=== PATIENT | female | born 1985 | race Hispanic/Latino ===

== ENCOUNTER 2022-08-05 10:56 | Emergency (ER) | payer BC, OTHER ==
--- OUTSIDE RECORDS SUMMARY | 2022-08-05 11:01 | XMS REPORT | Continuity of Care Document ---
:1985 Author Organization [facility] t Address [address] [facility]. [address] [place] [address] Care Team Providers Name Role Phone GREENGERRY PRUITT Primary Care Physician Unavailable VICTOR M ARNDT Attending Clinician Unavailable Ebrahim TREE PLANTER, Victor M Attending Clinician Unknown, Attending Attending Clinician Unavailable Doctor Unassigned, [place] Attending Clinician Unavailable Debby Jain RN Attending Clinician Unavailable Only, Ang [facility] Test Attending Clinician Unavailable Amelia Tapia Attending Clinician AMELIA SHOOK Attending Clinician Unavailable SHANNA GOMEZ Attending Clinician Unavailable Shanna Garza Attending Clinician MARTHA KELELY Attending Clinician Unavailable Allie REICHPMartha Attending Clinician Provider, [facility] Attending Clinician Unavailable Liz Molina RN Attending Clinician Unavailable LONG NORRIS Attending Clinician Unavailable Jr DUBOSE, Long Attending Clinician Bill Gonzalez DO Attending Clinician 2, [facility] Attending Clinician Unavailable Venessa DUBOSE, Katiana Attending Clinician KATIANA CLIFFORD Attending Clinician Unavailable Lab, [facility] Fam Pob I Attending Clinician Unavailable Missy Palmer Attending Clinician MISSY QIU Attending Clinician Unavailable Teetee Koch RN Attending Clinician Unavailable DANIEL HERNANDEZ Attending Clinician Unavailable Pob[facility], [facility] Attending Clinician Unavailable GERRY GREEN Attending Clinician Unavailable ANNI PHAN Attending Clinician Unavailable ROMÁN MONDRAGON Attending Clinician Unavailable ROMÁN MONDRAGON Attending Clinician Unavailable SHANNA GOMEZ Admitting Clinician Unavailable ROMÁN MONDRAGON Admitting Clinician Unavailable Payers Payer Name Policy Type Policy Number Effective Date Expiration Date S ource Problems Condition Condition Condition Status Onset Resolution Last Treating Co mments Source Name Details Category Date Date Treatment Clinician Date Need for Need for Disease Active Unive rs vaccinatio vaccinatio 1-19 it y of n with n with 00:00: [place] 13-polyval 13-polyval 00 Me dical ent ent Branch pneumococc pneumococc al al conjugate conjugate vaccine vaccine Need for Need for Disease Active Unive rs vaccinatio vaccinatio 1-19 it y of n with n with 00:00: [place] 13-polyval 13-polyval 00 Me dical ent ent Branch pneumococc pneumococc al al conjugate conjugate vaccine vaccine ADHD ADHD Disease Active Univers (attention (attention 1-15 it y of deficit deficit 00:00: [place] hyperactiv hyperactiv 00 Me dical ity ity Branch disorder), disorder), combined combined type type Anxiety, Anxiety, Disease Active Unive rs generalize generalize 1-15 it y of d d 00:00: 00 Medical Branch Stress at Stress at Disease Active Uni vers home home 1-15 ity of 00:00: 00 Medical Branch Current Current Disease Active Univers mild mild 1-15 ity of episode of [place] major 00 Medical depressive depressive Br anch disorder, disorder, unspecifie unspecifie d whether d whether recurrent recurrent Adjustment Adjustment Disease Active U nivers insomnia insomnia 1-15 ity of 00:00: [place] 00 Medical Branch Bronchitis Bronchitis Disease Active U nivers 4-28 ity of 00:00: 00 Medical Branch Nose Nose Disease Active Univers congestion congestion 4-28 it y of 00:00: 00 Medical Branch Exposure Exposure Disease Active Unive rs to to 4-28 ity of SARS-assoc SARS-assoc 00:00: [place] i[place] iated 00 Medical coronaviru coronaviru Br anch s s Acute Acute Disease Active 2020- Univers bacterial bacterial 3-17 ity of pharyngiti pharyngiti [place] Sore Sore Disease Active 2020- Univers throat throat 3-17 ity of 00:00: [place] 00 Medical Branch Nicotine Nicotine Disease Active 2019- Unive rs dependence dependence 3-17 it y of , , 00:00: [place] cigarettes cigarettes 00 Me dical , , Branch uncomplica uncomplica hadley hadley Cough Cough Disease Active 2020- Univers 3-17 ity of 00:00: [place] 00 Medical Branch Status Status Disease Active 2019- Univers post tubal post tubal 4-12 it y of ligation ligation 00:00: [place] 00 Medical Branch Shoulder Shoulder Disease Active Unive rs dystocia dystocia 4-12 ity of during during 00:00: [place] labor and labor and [address] [place] [address] delivery delivery Branch History of History of Disease Active 2019 U nivers seizure seizure 4-12 ity of 00:00: [place] 00 Medical Branch H/O H/O Disease Active 2019- Univers maternal maternal 1-24 ity of cardiomyop cardiomyop 00:00: [place] sabina sidhu, athmurali, 00 Medical currently currently Bran ch , , third third trimester trimester History of History of Disease Active 2017-03 Overview : Univers echocardio echocardio 1- Formattin ity of gram gram 00:00: g of this [place] 00 note Medical might be Branch different from the original. See results from 11/2017 in chart review Cervical Cervical Disease Active 2017-03 Overview: Un patrick Papanicola Papanicola 1- Formattin ity of ou smear ou smear 00:00: g of this [place] as negative negative 00 note Medica l within within might be Branch last 12 last 12 different months months from the original. 11/2017 neg pap and neg hpv see scanned records Disease Active 2017-03 Overview : Univers cardiomyop cardiomyop 0-29 Formattin ity of athy athy 00:00: g of this [place] 00 note Medical might be Branch different from the original. Reported with 2008 11/2017 normal echo, see scanned records Allergies, Adverse Reactions, Alerts Allergy Allergy Status Severity Reaction(s) Onset Inactive Treating Comm ents Source Name Type Date Date Clinician NO KNOWN Drug Active Univers ALLERGIE Class ity of [facility] Social History Social Habit Start Date Stop Date Quantity Comments Source Exposure to 2022-05-03 2022-05-13 Not sure [facility] SARS-CoV-2 00:00:00 10:37:00 [facility] (event) Branch Alcohol intake 2021-07-31 2021-07-31 0 /d [facility] 00:00:00 00:00:00 [facility] Tobacco use and 2019-07-26 2019-07-26 Smokeless tobacco Un iversity of exposure 00:00:00 00:00:00 non-user [facility] Tobacco Comment 2018-01-25 2018-01-25 [facility]:00 she found out [place] Medic al about Branch History of 2017-12-01 Cigarette Smoker Universi ty of tobacco use 00:00:00 [facility] Sex [birth year] Universit y of 00:00:00 00:00:00 [facility] Smoking Status Start Date Stop Date Source Tobacco smoking [facility] Branch Occasional tobacco smoker 2019-07-26 00:00:00 Un iversity of [facility] Medications Ordered Filled Start Stop Current Ordering Indication Dosage Frequency Signature Comments Components Source Medication Medication Date Date Medication? Clinician (SIG) Name Name amoxicillin 2022- Yes [id number] 875mg Take 1 Univers 875 mg 2-14 -25 tablet by ity of tablet 00:00: 05:59 mouth in [place] 00 :00 the Medical morning Branch and 1 tablet in the evening. Do all this for 10 days. amoxicillin 2022- Yes [id number] 875mg Take 1 Univers 875 mg 2-14 02-25 tablet by ity of tablet 00:00: 05:59 mouth in [place] 00 :00 the Medical morning Branch and 1 tablet in the evening. Do all this for 10 days. ondansetron 2021- No 8mg 8 mg, Slow Univers (ZOFRAN -07 02-04 IV Push, ity of (PF)) 18:45: 17:55 ONCE, 1 [place] injection 8 00 :00 dose, On Medi gloria mg 07/31/21 Branch at 1345, MARIA EUGENIA NaCl 0.9% 2021-0 2021- No 1000mL at 999 Uni vers (NS) bolus 5-04 05-04 mL/hr, ity of infusion 18:45: 20:16 1,000 mL, Caden as 1,000 mL 00 :00 IV Medical Infusion, Branch ONCE, 1 dose, On 07/31/21 at 1345, MARIA EUGENIA dicyclomine 2021-0 Yes [id number] 20mg Take 1 U nivers 20 mg 5-04 tablet by ity of tablet 00:00: mouth 4 [place] 00 (four) Medical times Branch daily as needed for Abdominal pain. ondansetron 2021-0 Yes [id number] 4mg Take 1 U nivers 4 mg 5-04 tablet by ity of disintegrat 00:00: mouth [place] ing tablet 00 every 8 Medica l (eight) Branch hours as needed for Nausea and Vomiting (N/V). dicyclomine 2021-0 Yes [id number] 20mg Take 1 U nivers 20 mg 5-04 tablet by ity of tablet 00:00: mouth 4 [place] 00 (four) Medical times Branch daily as needed for Abdominal pain. ondansetron 2021-0 Yes [id number] 4mg Take 1 U nivers 4 mg 5-04 tablet by ity of disintegrat 00:00: mouth [place] ing tablet 00 every 8 Medica l (eight) Branch hours as needed for Nausea and Vomiting (N/V). dicyclomine 2021-0 Yes [id number] 20mg Take 1 U nivers 20 mg 5-04 tablet by ity of tablet 00:00: mouth 4 [place] 00 (four) Medical times Branch daily as needed for Abdominal pain. ondansetron 2-0 Yes [id number] 4mg Take 1 U nivers 4 mg 5-04 tablet by ity of disintegrat 00:00: mouth [place] ing tablet 00 every 8 Medica l (eight) Branch hours as needed for Nausea and Vomiting (N/V). dicyclomine 2-0 Yes [id number] 20mg Take 1 U nivers 20 mg 5-04 tablet by ity of tablet 00:00: mouth 4 [place] 00 (four) Medical times Branch daily as needed for Abdominal pain. ondansetron 2-0 Yes [id number] 4mg Take 1 U nivers 4 mg 5-04 tablet by ity of disintegrat 00:00: mouth [place] ing tablet 00 every 8 Medica l (eight) Branch hours as needed for Nausea and Vomiting (N/V). dicyclomine 2-0 Yes [id number] 20mg Take 1 U nivers 20 mg 5-04 tablet by ity of tablet 00:00: mouth 4 [place] 00 (four) Medical times Branch daily as needed for Abdominal pain. ondansetron 2021-0 Yes [id number] 4mg Take 1 U nivers 4 mg 5-04 tablet by ity of disintegrat 00:00: mouth [place] ing tablet 00 every 8 Medica l (eight) Branch hours as needed for Nausea and Vomiting (N/V). dicyclomine 2021-0 Yes [id number] 20mg Take 1 U nivers 20 mg 5-04 tablet by ity of tablet 00:00: mouth 4 [place] 00 (four) Medical times Branch daily as needed for Abdominal pain. ondansetron 2021-0 Yes [id number] 4mg Take 1 U nivers 4 mg 5-04 tablet by ity of disintegrat 00:00: mouth [place] ing tablet 00 every 8 Medica l (eight) Branch hours as needed for Nausea and Vomiting (N/V). dicyclomine 2021-0 Yes [id number] 20mg Take 1 U nivers 20 mg 5-04 tablet by ity of tablet 00:00: mouth 4 [place] 00 (four) Medical times Branch daily as needed for Abdominal pain. ondansetron 2021-0 Yes [id number] 4mg Take 1 U nivers 4 mg 5-04 tablet by ity of disintegrat 00:00: mouth [place] ing tablet 00 every 8 Medica l (eight) Branch hours as needed for Nausea and Vomiting (N/V). ondansetron 2020- Yes [id number] 4mg Take 1 Univers 4 mg 2-13 tablet by ity of disintegrat 00:00: mouth [place] ing tablet 00 every 8 Medica l (eight) Branch hours as needed for Nausea and Vomiting (N/V). ondansetron 2020- Yes [id number] 4mg Take 1 Univers 4 mg 2-13 tablet by ity of disintegrat 00:00: mouth [place] ing tablet 00 every 8 Medica l (eight) Branch hours as needed for Nausea and Vomiting (N/V). ondansetron 2020-03 Yes [id number] 4mg Take 1 Univers 4 mg 2-13 tablet by ity of disintegrat 00:00: mouth [place] ing tablet 00 every 8 Medica l (eight) Branch hours as needed for Nausea and Vomiting (N/V). ondansetron 2020-03 Yes [id number] 4mg Take 1 Univers 4 mg 2-13 tablet by ity of disintegrat 00:00: mouth [place] ing tablet 00 every 8 Medica l (eight) Branch hours as needed for Nausea and Vomiting (N/V). ondansetron 2020-03 Yes [id number] 4mg Take 1 Univers 4 mg 2-13 tablet by ity of disintegrat 00:00: mouth [place] ing tablet 00 every 8 Medica l (eight) Branch hours as needed for Nausea and Vomiting (N/V). ondansetron 2020-03 Yes [id number] 4mg Take 1 Univers 4 mg 2-13 tablet by ity of disintegrat 00:00: mouth [place] ing tablet 00 every 8 Medica l (eight) Branch hours as needed for Nausea and Vomiting (N/V). ondansetron 2020-03 Yes [id number] 4mg Take 1 Univers 4 mg 2-13 tablet by ity of disintegrat 00:00: mouth [place] ing tablet 00 every 8 Medica l (eight) Branch hours as needed for Nausea and Vomiting (N/V). ondansetron 2020-03 Yes [id number] 4mg Take 1 Univers 4 mg 2-13 tablet by ity of disintegrat 00:00: mouth [place] ing tablet 00 every 8 Medica l (eight) Branch hours as needed for Nausea and Vomiting (N/V). ondansetron 2020-03 Yes [id number] 4mg Take 1 Univers 4 mg 2-13 tablet by ity of disintegrat 00:00: mouth [place] ing tablet 00 every 8 Medica l (eight) Branch hours as needed for Nausea and Vomiting (N/V). ondansetron 2020-03 Yes [id number] 4mg Take 1 Univers 4 mg 2-13 tablet by ity of disintegrat 00:00: mouth [place] ing tablet 00 every 8 Medica l (eight) Branch hours as needed for Nausea and Vomiting (N/V). ondansetron 2020-03 Yes [id number] 4mg Take 1 Univers 4 mg 2-13 tablet by ity of disintegrat 00:00: mouth [place] ing tablet 00 every 8 Medica l (eight) Branch hours as needed for Nausea and Vomiting (N/V). ondansetron 2020-03 Yes [id number] 4mg Take 1 Univers 4 mg 2-13 tablet by ity of disintegrat 00:00: mouth [place] ing tablet 00 every 8 Medica l (eight) Branch hours as needed for Nausea and Vomiting (N/V). ondansetron 2020-03 Yes [id number] 4mg Take 1 Univers 4 mg 2-13 tablet by ity of disintegrat 00:00: mouth [place] ing tablet 00 every 8 Medica l (eight) Branch hours as needed for Nausea and Vomiting (N/V). ondansetron 2020-03 Yes [id number] 4mg Take 1 Univers 4 mg 2-13 tablet by ity of disintegrat 00:00: mouth [place] ing tablet 00 every 8 Medica l (eight) Branch hours as needed for Nausea and Vomiting (N/V). ondansetron 2020-03- No [id number] 4mg Take 1 Univers 4 mg 0-11 12-13 tablet by ity of disintegrat 00:00: 00:00 [place] tablet 00 :00 every 8 Medica l (eight) Branch hours as needed for Nausea and Vomiting (N/V). amphetamine Yes [id number] 5mg Take 1 Univers -dextroamph 1-15 capsule by it y of etamine 00:00: mouth [place] (ADDERALL 00 every Medical XR) 5 mg 24 morning. Bran ch hr capsule FLUoxetine Yes [id number] 10mg Take 1 U nivers 10 mg 1-15 capsule by ity of capsule 00:00: mouth [place] 00 daily. Medical Branch traZODone Yes [id number] 50mg Take 1 U nivers 50 mg 1-15 tablet by ity of tablet 00:00: mouth at [place] 00 bedtime. Medical Branch amphetamine Yes [id number] 5mg Take 1 Univers -dextroamph 1-15 capsule by it y of etamine 00:00: mouth [place] (ADDERALL 00 every Medical XR) 5 mg 24 morning. Bran ch hr capsule FLUoxetine Yes [id number] 10mg Take 1 U nivers 10 mg 1-15 capsule by ity of capsule 00:00: mouth [place] 00 daily. Medical Branch traZODone Yes [id number] 50mg Take 1 U nivers 50 mg 1-15 tablet by ity of tablet 00:00: mouth at [place] 00 bedtime. Medical Branch amphetamine 0 Yes [id number] 5mg Take 1 Univers -dextroamph 1-15 capsule by it y of etamine 00:00: mouth [place] (ADDERALL 00 every Medical XR) 5 mg 24 morning. Bran ch hr capsule FLUoxetine Yes [id number] 10mg Take 1 U nivers 10 mg 1-15 capsule by ity of capsule 00:00: mouth [place] 00 daily. Medical Branch traZODone Yes [id number] 50mg Take 1 U nivers 50 mg 1-15 tablet by ity of tablet 00:00: mouth at [place] 00 bedtime. Medical Branch amphetamine Yes [id number] 5mg Take 1 Univers -dextroamph 1-15 capsule by it y of etamine 00:00: mouth [place] (ADDERALL 00 every Medical XR) 5 mg 24 morning. Bran ch hr capsule FLUoxetine Yes [id number] 10mg Take 1 U nivers 10 mg 1-15 capsule by ity of capsule 00:00: mouth [place] 00 daily. Medical Branch traZODone Yes [id number] 50mg Take 1 U nivers 50 mg 1-15 tablet by ity of tablet 00:00: mouth at [place] 00 bedtime. Medical Branch amphetamine Yes [id number] 5mg Take 1 Univers -dextroamph 1-15 capsule by it y of etamine 00:00: mouth [place] (ADDERALL 00 every Medical XR) 5 mg 24 morning. Bran ch hr capsule FLUoxetine Yes [id number] 10mg Take 1 U nivers 10 mg 1-15 capsule by ity of capsule 00:00: mouth [place] 00 daily. Medical Branch traZODone Yes [id number] 50mg Take 1 U nivers 50 mg 1-15 tablet by ity of tablet 00:00: mouth at [place] 00 bedtime. Medical Branch amphetamine Yes [id number] 5mg Take 1 Univers -dextroamph 1-15 capsule by it y of etamine 00:00: mouth [place] (ADDERALL 00 every Medical XR) 5 mg 24 morning. Bran ch hr capsule FLUoxetine Yes [id number] 10mg Take 1 U nivers 10 mg 1-15 capsule by ity of capsule 00:00: mouth [place] 00 daily. Medical Branch traZODone Yes [id number] 50mg Take 1 U nivers 50 mg 1-15 tablet by ity of tablet 00:00: mouth at [place] 00 bedtime. Medical Branch amphetamine Yes [id number] 5mg Take 1 Univers -dextroamph 1-15 capsule by it y of etamine 00:00: mouth [place] (ADDERALL 00 every Medical XR) 5 mg 24 morning. Bran ch hr capsule FLUoxetine Yes [id number] 10mg Take 1 U nivers 10 mg 1-15 capsule by ity of capsule 00:00: mouth [place] 00 daily. Medical Branch traZODone Yes [id number] 50mg Take 1 U nivers 50 mg 1-15 tablet by ity of tablet 00:00: mouth at [place] 00 bedtime. Medical Branch amphetamine Yes [id number] 5mg Take 1 Univers -dextroamph 1-15 capsule by it y of etamine 00:00: mouth [place] (ADDERALL 00 every Medical XR) 5 mg 24 morning. Bran ch hr capsule FLUoxetine Yes [id number] 10mg Take 1 U nivers 10 mg 1-15 capsule by ity of capsule 00:00: mouth [place] 00 daily. Medical Branch traZODone Yes [id number] 50mg Take 1 U nivers 50 mg 1-15 tablet by ity of tablet 00:00: mouth at [place] 00 bedtime. Medical Branch amphetamine Yes [id number] 5mg Take 1 Univers -dextroamph 1-15 capsule by it y of etamine 00:00: mouth [place] (ADDERALL 00 every Medical XR) 5 mg 24 morning. Bran ch hr capsule FLUoxetine Yes [id number] 10mg Take 1 U nivers 10 mg 1-15 capsule by ity of capsule 00:00: mouth [place] 00 daily. Medical Branch traZODone Yes [id number] 50mg Take 1 U nivers 50 mg 1-15 tablet by ity of tablet 00:00: mouth at [place] 00 bedtime. Medical Branch amphetamine 2020-0 Yes [id number] 5mg Take 1 Univers -dextroamph 1-15 capsule by it y of etamine 00:00: mouth [place] (ADDERALL 00 every Medical XR) 5 mg 24 morning. Bran ch hr capsule FLUoxetine 2020-0 Yes [id number] 10mg Take 1 U nivers 10 mg 1-15 capsule by ity of capsule 00:00: mouth [place] 00 daily. Medical Branch traZODone 2020-0 Yes [id number] 50mg Take 1 U nivers 50 mg 1-15 tablet by ity of tablet 00:00: mouth at [place] 00 bedtime. Medical Branch amphetamine 2020-0 Yes [id number] 5mg Take 1 Univers -dextroamph 1-15 capsule by it y of etamine 00:00: mouth [place] (ADDERALL 00 every Medical XR) 5 mg 24 morning. Bran ch hr capsule FLUoxetine 2020-0 Yes [id number] 10mg Take 1 U nivers 10 mg 1-15 capsule by ity of capsule 00:00: mouth [place] 00 daily. Medical Branch traZODone 0 Yes [id number] 50mg Take 1 U nivers 50 mg 1-15 tablet by ity of tablet 00:00: mouth at [place] 00 bedtime. Medical Branch amphetamine 2020-0 Yes [id number] 5mg Take 1 Univers -dextroamph 1-15 capsule by it y of etamine 00:00: mouth [place] (ADDERALL 00 every Medical XR) 5 mg 24 morning. Bran ch hr capsule FLUoxetine 2020-0 Yes [id number] 10mg Take 1 U nivers 10 mg 1-15 capsule by ity of capsule 00:00: mouth [place] 00 daily. Medical Branch traZODone 2020-0 Yes [id number] 50mg Take 1 U nivers 50 mg 1-15 tablet by ity of tablet 00:00: mouth at [place] 00 bedtime. Medical Branch amphetamine 2020-0 Yes [id number] 5mg Take 1 Univers -dextroamph 1-15 capsule by it y of etamine 00:00: mouth [place] (ADDERALL 00 every Medical XR) 5 mg 24 morning. Bran ch hr capsule FLUoxetine 2020-0 Yes [id number] 10mg Take 1 U nivers 10 mg 1-15 capsule by ity of capsule 00:00: mouth [place] 00 daily. Medical Branch traZODone Yes [id number] 50mg Take 1 U nivers 50 mg 1-15 tablet by ity of tablet 00:00: mouth at [place] 00 bedtime. Medical Branch amphetamine Yes [id number] 5mg Take 1 Univers -dextroamph 1-15 capsule by it y of etamine 00:00: mouth [place] (ADDERALL 00 every Medical XR) 5 mg 24 morning. Bran ch hr capsule FLUoxetine Yes [id number] 10mg Take 1 U nivers 10 mg 1-15 capsule by ity of capsule 00:00: mouth [place] 00 daily. Medical Branch traZODone Yes [id number] 50mg Take 1 U nivers 50 mg 1-15 tablet by ity of tablet 00:00: mouth at [place] 00 bedtime. Medical Branch Immunizations Ordered Filled Immunization Date Status Comments [facility] e Immunization Name Name Pneumococcal 13 2020-04-13 Completed Universit y of Conjugate, PCV13 00:00:00 [place] Me dical (Prevnar 13) Branch Pneumococcal 13 2020-04-13 Completed Universit y of Conjugate, PCV13 00:00:00 [place] Me dical (Prevnar 13) Branch Pneumococcal 13 2020-04-13 Completed Universit y of Conjugate, PCV13 00:00:00 [place] Me dical (Prevnar 13) Branch Pneumococcal 13 2020-04-13 Completed Universit y of Conjugate, PCV13 00:00:00 [place] Me dical (Prevnar 13) Branch Pneumococcal 13 2020-04-13 Completed Universit y of Conjugate, PCV13 00:00:00 [place] Me dical (Prevnar 13) Branch Pneumococcal 13 2020-04-13 Completed Universit y of Conjugate, PCV13 00:00:00 [place] Me dical (Prevnar 13) Branch Pneumococcal 13 2020-04-13 Completed Universit y of Conjugate, PCV13 00:00:00 [place] Me dical (Prevnar 13) Branch Pneumococcal 13 2020-04-13 Completed Universit y of Conjugate, PCV13 00:00:00 [place] Me dical (Prevnar 13) Branch Pneumococcal 13 2020-04-13 Completed Universit y of Conjugate, PCV13 00:00:00 [facility] dical (Prevnar 13) Branch Pneumococcal 13 2020-04-13 Completed Universit y of Conjugate, PCV13 00:00:00 [facility] dical (Prevnar 13) Branch Pneumococcal 13 2020-04-13 Completed Universit y of Conjugate, PCV13 00:00:00 [place] Me dical (Prevnar 13) Branch Pneumococcal 13 2020-04-13 Completed Universit y of Conjugate, PCV13 00:00:00 [place] [facility] dical (Prevnar 13) Branch Pneumococcal 13 2020-04-13 Completed Universit y of Conjugate, PCV13 00:00:00 [facility] dical (Prevnar 13) Branch Pneumococcal 13 2020-04-13 Completed Universit y of Conjugate, PCV13 00:00:00 [facility] dical (Prevnar 13) Branch TDAP 2018-04-22 Completed University of 00:00:00 [facility] TDAP 2018-04-22 Completed University of 00:00:00 [facility] TDAP 2018-04-22 Completed University of 00:00:00 [facility] TDAP 2018-04-22 Completed University of 00:00:00 [facility] TDAP 2018-04-22 Completed University of 00:00:00 [facility] TDAP 2018-04-22 Completed University of 00:00:00 [facility] TDAP 2018-04-22 Completed University of 00:00:00 [facility] TDAP 2018-04-22 Completed University of 00:00:00 [facility] TDAP 2018-04-22 Completed University of 00:00:00 [facility] TDAP 2018-04-22 Completed University of 00:00:00 [facility] TDAP 2018-04-22 Completed University of 00:00:00 [facility] TDAP 2018-04-22 Completed University of 00:00:00 [facility] TDAP 2018-04-22 Completed University of 00:00:00 [facility] TDAP 2018-04-22 Completed University of 00:00:00 [facility] Influenza Virus 2018-01-19 Completed Universit y of Vaccine - Whole 00:00:00 [facility] Influenza Virus 2018-01-19 Completed Universit y of Vaccine - Whole 00:00:00 [facility] Influenza Virus 2018-01-19 Completed Universit y of Vaccine - Whole 00:00:00 [facility] Influenza Virus 2018-01-19 Completed Universit y of Vaccine - Whole 00:00:00 [facility] Influenza Virus 2018-01-19 Completed Universit y of Vaccine - Whole 00:00:00 [facility] Influenza Virus 2018-01-19 Completed Universit y of Vaccine - Whole 00:00:00 [facility] Influenza Virus 2018-01-19 Completed Universit y of Vaccine - Whole 00:00:00 [facility] Influenza Virus 2018-01-19 Completed Universit y of Vaccine - Whole 00:00:00 [facility] Influenza Virus 2018-01-19 Completed Universit y of Vaccine - Whole 00:00:00 [facility] Influenza Virus 2018-01-19 Completed Universit y of Vaccine - Whole 00:00:00 [facility] Influenza Virus 2018-01-19 Completed Universit y of Vaccine - Whole 00:00:00 [facility] Influenza Virus 2018-01-19 Completed Universit y of Vaccine - Whole 00:00:00 [facility] Influenza Virus 2018-01-19 Completed Universit y of Vaccine - Whole 00:00:00 [facility] Influenza Virus 2018-01-19 Completed Universit y of Vaccine - Whole 00:00:00 [facility] Vital Signs Vital Name Observation Time Observation Value Comments Source Systolic blood 2022-05-13 16:50:00 108 mm[Hg] Univer sity of pressure [facility] Diastolic blood 2022-05-13 16:50:00 76 mm[Hg] Unive rsity of pressure [facility] Heart rate 2022-05-13 16:50:00 84 /min [facility] Body temperature 2022-05-13 16:50:00 37.28 Luz Marina [facility] Respiratory rate 2022-05-13 16:50:00 18 /min [facility] Body height 2022-05-13 16:50:00 162.6 cm [facility] Body weight 2022-05-13 16:50:00 63.248 kg [facility] BMI 2022-05-13 16:50:00 23.93 kg/m2 [facility] Oxygen saturation in 2022-05-13 16:50:00 97 /min [facility] Arterial blood by [facility] Pulse oximetry Branch Systolic blood 2021-07-31 20:00:00 122 mm[Hg] Univer sity of pressure [facility] Diastolic blood 2021-07-31 20:00:00 76 mm[Hg] Unive rsity of pressure [facility] Heart rate 2021-07-31 20:00:00 61 /min [facility] Respiratory rate 2021-07-31 20:00:00 21 /min Univ ersity [facility] Oxygen saturation in 2021-07-31 20:00:00 98 /min University of Arterial blood by [facility] Pulse oximetry Branch Body temperature 2021-07-31 17:33:00 36.22 Luz Marina [facility] Body weight 2021-07-31 17:33:00 62.596 kg [facility] BMI 2021-07-31 17:33:00 20.38 kg/m2 [facility] Systolic blood 2021-03-11 17:50:00 130 mm[Hg] Univer sity of pressure [facility] Diastolic blood 2021-03-11 17:50:00 82 mm[Hg] Unive rsity of pressure [facility] Heart rate 2021-03-11 17:50:00 81 /min [facility] Body temperature 2021-03-11 17:50:00 36.56 Luz Marina [facility] Respiratory rate 2021-03-11 17:50:00 17 /min [facility] Body height 2021-03-11 17:50:00 175.3 cm [facility] Body weight 2021-03-11 17:50:00 62.143 kg [facility] BMI 2021-03-11 17:50:00 20.23 kg/m2 [facility] Oxygen saturation in 2021-03-11 17:50:00 97 /min [facility] Arterial blood by [facility] Pulse oximetry Branch Procedures Procedure Date / Time Performing Clinician Source Performed POCT MOLECULAR FLU 2022-05-13 16:58:00 Unknown, Attending [facility] FOR 2022-05-13 16:41:02 Doctor Unassigned, Unive [facility] DIAGNOSIS AND TREATMENT [facility] XR CHEST 1 VW 2021-07-31 18:24:19 Shanna Gomez [facility] LIPASE 2021-07-31 17:51:00 Shanna Gomez [facility] TROPONIN I 2021-07-31 17:51:00 Shanna Gomez [facility] COMP. METABOLIC PANEL 2021-07-31 17:51:00 Shanna Gomez [facility] ([id number]) [facility] CBC WITH DIFF 2021-07-31 17:51:00 Shanna Gomez [facility] URINALYSIS 2021-07-31 17:51:00 Shanna Gomez [facility] N-TERMINAL PRO-BNP 2021-07-31 17:51:00 Shanna Gomez [facility] POCT TEST 2021-07-31 17:45:00 Shanna Gomez [facility] NOTICE OF PRIVACY 2021-07-31 17:21:40 Doctor Margoth, [facility] PRACTICES [place] [facility] CONSENT/REFUSAL FOR 2021-07-31 17:21:28 Doctor Margoth, [facility] DIAGNOSIS AND TREATMENT [facility] [place] ASSIGNMENT OF BENEFITS 2021-04-04 22:07:57 Doctor Margoth, [facility] POCT MOLECULAR FLU 2021-03-11 18:02:[address] [facility] PATIENT FINANCIAL Doctor Margoth, [facility] RESPONSIBILITY - ALL [facility] FORMS Encounters Start End Encounter Admission Attending Care Care Encounter Source Date/Time Date/Time Type Type Clinicians Facility Department ID 2022-05-13 2022-05-13 Outpatient R YRIS [facility] [id number] [facility] 10:20:00 11:09:10 VICTOR M [facility] 2022-05-13 2022-05-13 Urgent Victor M Arndt [facility] 1.2.840.114 [id number] [facility] 10:20:00 11:09:10 Care Unknown, Attending HEALTH 350.1.13.10 [facility] 4.2.7.2.686 Caden [place] NIRAJ?BLEA [phone] [address] OFFICE [facility] 2022-05-13 2022-05-13 Orders Doctor CINDY 1.2.840.114 [id number] Univers 00:00:00 00:00:00 Only Unassigned, SHAREE 350.1.13.10 ity of [place] [facility] 4.2.7.2.686 Caden as [id number] [facility] [address] 2022-05-13 2022-05-13 Letter Yris [facility] 1.2.840.114 [id number] Univers 00:00:00 00:00:00 (Out) Rania HEALTH 350.1.13.10 it y of [place] 4.2.7.2.686 Caden as NIRAJ?BLEA [id number] [address] 2021-10-16 2021-10-16 Telephone Debby Jain 1.2.840.114 [id number] Univers 00:00:00 00:00:00 SHAREE 350.1.13.10 it y of HOSPITAL 4.2.7.2.686 [place] [phone] [address] 2021-10-15 2021-10-15 Laboratory Only, Ang Db Test [facility] 1.2.8 40.114 [id number] Univers 19:45:00 20:00:00 Only Foreign Shooky HEALTH 350.1.13.10 ity of [place] 4.2.7.2.686 [place]aden [place] NIRAJ?BLEA [phone] [address] 2021-10-15 2021-10-15 Outpatient R BOONE [facility] [id number] Univers 19:45:00 19:38:02 AMELIA ity o f [facility] 2021-10-15 2021-10-15 Letter Only, Cristian [facility] 1.2.692.993 [id number] Univers 00:00:00 00:00:00 (Out) Db Test HEALTH 350.1.13.10 it y of [place] 4.2.7.2.686 Caden as NIRAJ?BLEA [id number] [address] 2021-07-31 2021-07-31 Emergency X JASON [facility] ERT [id number] Univers 12:38:00 15:23:00 SHANNA ity [facility] 2021-07-31 2021-07-31 Emergency Gomez, [facility] 1.2.840.114 [id number] Univers 12:38:00 15:23:00 Shanna HAWKINS 350.1.13.10 i ty of [place] [phone] [place] [id number] [place] 2021-07-31 2021-07-31 Orders Doctor CINDY 1.2.840.114 [id number] Univers 00:00:00 00:00:00 Only Unassigned, SHAREE 350.1.13.10 ity of [place] [facility] 4.2.7.2.686 Caden as [id number] [address] 2021-04-04 2021-04-04 Outpatient R ALLIE [facility] [id number] Univers 16:00:00 17:04:28 MARTHA ity [facility] 2021-04-04 2021-04-04 Laboratory Only, Ang Db Test [facility] 1.2.8 40.114 [id number] Univers 16:00:00 16:15:00 Only Allie Martha HEALTH 350.1.13.10 ity of [place] 4.2.7.2.686 Caden [place] NIRAJ?BLEA [phone] [address] MEDICAL OFFICE BUILDING 2021-04-04 2021-04-04 Orders Doctor CINDY 1.2.840.114 [id number] Univers 00:00:00 00:00:00 Only Unassigned, SHAREE 350.1.13.10 ity of [place] [facility] 4.2.7.2.686 Caden as [phone] [address] 2021-04-04 2021-04-04 Letter Provider, [facility] 1.2.154.670 [id number] Univers 00:00:00 00:00:00 (Out) Ang Db HEALTH 350.1.13.10 it y of Urgent Care [place] 4.2.7.2.686 [place] NIRAJ?BLEA [phone] [address] MEDICAL OFFICE BUILDING 2021-04-04 2021-04-04 Letter Provider, [facility] 1.2.333.572 [id number] Univers 00:00:00 00:00:00 (Out) Ang Db HEALTH 350.1.13.10 it y of Urgent [facility] [place] 4.2.7.2.686 [place] NIRAJ?BLEA [phone] [address] MEDICAL OFFICE [facility] 2021-03-12 2021-03-12 Letter CINDY Molina 1.2.840.114 [id number] Univers 00:00:00 00:00:00 (Out) Liz TOLLIVER 350.1.13.10 it y of HOSPITAL 4.2.7.2.686 Caden as [phone] [address] 2021-03-11 2021-03-11 [facility]patient [facility] [id number] Univers 12:00:00 12:18:19 LONG dejesus [facility] 2021-03-11 2021-03-11 [facility] 1.2.840.114 [id number] Univers 11:42:31 12:02:31 Care Long HEALTH 350.1.13.10 it y of [place] 4.2.7.2.686 [place]aden [place] NIRAJ?BLEA [id number] [address] OFFICE [facility] 2021-03-11 2021-03-11 Outpatient Lia NORRIS [facility] [id number] Univers 12:00:00 12:00:00 LONG dejesus [facility] 2021-01-07 2021-01-07 [facility] .2.840.114 [id number] Univers 14:59:38 15:39:45 Care BooneCarissa [facility] 350.1.13.10 ity of [place] 4.2.7.2.686 Caden as Niraj?Blea [phone] [address] Office [facility] 2021-01-07 2021-01-07 Outpatient R BOONE [facility] [id number] Univers 15:00:00 15:00:00 AMELIA dejesus o f [facility] 2021-01-07 2021-01-07 Letter Provider, [facility] 1.2.517.085 [id number] Univers 00:00:00 00:00:00 (Out) Cristian Castillo 350.1.13.10 it y of Urgent Care [place] 4.2.7.2.686 [place] Niraj?Blea [phone] Mt [facility] [address] [facility] 2020-06-19 2020-06-19 Patient Carlos [facility] 1.2.840.114 [id number] Univers 00:00:00 00:00:00 Outreach Bill PRIMARY 350.1.13.10 i ty of [facility] [place] [phone] Mt dicmt [address] 2020-04-13 2020-04-13 Outbound Sales Representative 2, Adc Lab [facility] 1.2.840.114 [id number] Univers 16:06:30 16:21:30 Visit Katiana Clifford 350.1.13.10 [place]y [place] [phone] Mt dicmt nal [address] [facility] 2020-04-13 2020-04-13 Office [facility] 1.2.840.114 [id number] Univers 14:36:28 16:04:23 Visit Katiana Hawkins 350.1.13.10 i [place] [phone] Mt dicmt nal [facility] [facility] 2020-04-13 2020-04-13 Outpatient R VENESSA [facility] [id number] Univers 14:40:00 14:40:00 KATIANA dejesus [facility] 2020-04-12 2020-04-12 Outpatient R VENESSA [facility] [id number] Univers 16:00:00 16:00:00 KATIANA dejesus [facility] 2020-03-09 2020-03-09 Laboratory Lab, Adc Fam Pob I [facility] 1.2. 840.114 [id number] Univers 16:50:15 17:10:15 Only Missy Qiu 350.1.13.10 ity of [place] 4.2.7.2.686 Caden as Professio [phone] Mt dical nal [address] Office [facility] 2020-03-09 2020-03-09 Outpatient R ANTOLIN [facility] [id number] Univers 17:00:00 17:00:00 MISSY dejesus [facility] 2019-12-26 2019-12-26 Laboratory Lab, [facility] Fam Pob I [facility] 1.2. 840.114 [id number] Univers 14:58:01 15:18:01 Only Missy Q[facility] 350.1.13.10 ity of [place] 4.2.7.2.686 Caden as Professio [phone] [facility] 044 [facility] 2019-12-26 2019-12-26 Outpatient R ANTOLIN [facility] [id number] Univers 15:00:00 15:00:00 MISSY dejesus [facility] 2019-12-26 2019-12-26 Outpatient R ANTOLIN [facility] [id number] Univers 13:00:00 13:00:00 MISSY dejesus [facility] 2019-10-25 2019-10-25 Outpatient R LOLISCORNELIA [facility] [id number] Univers 07:20:00 07:20:00 KATIANA anjelica [facility] 2019-10-10 2019-10-10 Telephone CINDY Qiu 1.2.635.635 [id number] Univers 00:00:00 00:00:00 Missy TOLL[place] 350.1.13.10 it y of HOSPITAL 4.2.7.2.686 Caden as [id number] [address] 2019-10-09 2019-10-09 Telephone August Teeteesybil WHITE 1.2.840.114 [id number] Univers 00:00:00 00:00:00 SHAREE 350.1.13.10 it y of HOSPITAL 4.2.7.2.686 Caden as [phone] [address] 2019-10-07 2019-10-07 Laboratory Lab, Adc Fam Pob I [facility] 1.2. 840.114 [id number] Univers 13:22:49 13:42:49 Only Missy Qiu Health 350.1.13.10 ity of [place] 4.2.7.2.686 [place]aden [place] Professio [phone] [address] Office [facility] One 2019-10-07 2019-10-07 Outpatient R ANTOLIN [facility] [id number] Univers 13:20:00 13:20:00 MISSY dejesus [facility] 2019-07-29 2019-07-29 Outpatient R DAVID [facility] [id number] Univers 09:15:00 09:15:00 DANIEL anjelica [facility] 2019-07-29 2019-07-29 [facility] [id number] Univers 08:20:00 08:20:00 KATIANA anjelica [facility] 2019-07-28 2019-07-28 Telephone CINDY Qiu 1.2.593.115 [id number] Univers 00:00:00 00:00:00 Missy [place] 350.1.13.10 it y of [facility] 4.2.7.2.686 Caden as [id number] [address] 2019-07-26 2019-07-26 Urgent Pob1, Acute Care Clinic [facility] 1. 2.840.114 [id number] Univers 15:38:04 15:58:04 Care Katiana Clifford 350.1.13.10 ity of [place] 4.2.7.2.686 Caden as Professio [phone] [address] Office [facility] 2019-07-26 2019-07-26 Outpatient R VENESSA [facility] [id number] Univers 07:40:00 07:40:00 KATIANA dejesus [facility] 2019-07-26 2019-07-26 Telemedici [facility] 1.2.840.114 [id number] Univers 07:07:26 07:27:26 ne Visit Katiana Hawkins 350.1.13.10 [place] [phone] [address] 2019-07-26 2019-07-26 Refill [facility] 1.2.840.114 [id number] Univers 00:00:00 00:00:00 Katiana Hawkins 350.1.13.10 [place] [phone] [address] 2019-07-12 2019-07-12 Telemedici [facility] 1.2.840.114 [id number] Univers 07:46:24 08:06:24 ne Visit Katiana Hawkins 350.1.13.10 [place] [phone] [address] 2019-07-12 2019-07-12 Outpatient [facility] [id number] Univers 08:00:00 08:00:00 KATIANA dejesus [facility] 2019-06-27 2019-06-27 Outpatient [facility] [id number] Univers 07:20:00 07:20:00 GERRY dejesus [facility] 2019-06-15 2019-06-15 Refill [facility] 1.2.840.114 [id number] Univers 00:00:00 00:00:00 Katiana [place] 350.1.13.10 [place] [phone] [address] 2019-06-14 2019-06-14 Office [facility] 1.2.840.114 [id number] Univers 08:02:55 09:13:39 Visit Katiana [place] 350.1.13.10 i [place] [phone] [address] 2019-06-14 2019-06-14 Outpatient [facility] [id number] Univers 08:00:00 08:00:00 KATIANA dejesus [facility] 2019-06-14 2019-06-14 Orders Doctor WHITE 1.2.840.114 [id number] Univers 00:00:00 00:00:00 Only Unassigned, SHAREE 350.1.13.10 ity of [place] [facility] 4.2.7.2.686 Caden as [id number] [address] 2019-06-14 2019-06-14 Letter [facility] 1.2.840.114 [id number] Univers 00:00:00 00:00:00 (Out) Katiana [place] 350.1.13.10 i ty [place] [phone] Mt dical nal [address] 2018-07-28 2018-07-28 Outpatient R EMILIE [facility] [id number] Univers 09:00:00 09:20:54 ANNI ity o f [facility] 2018-07-08 2018-07-11 Inpatient P ALANNA ROMÁN [facility] JEANINE [id number] Univers 07:06:00 15:22:00 ROMÁN MONDRAGON ity [facility] Orders Doctor CINDY 1.2.840.114 [id number] Univers 00:00:00 00:00:00 Only Unassigned, SHAREE 350.1.13.10 ity of [place] [facility] 4.2.7.2.686 Caden as [phone] [address] Results Test Description Test Time Test Comments Results Result Comments Source POCT MOLECULAR FLU 2022-05-13 17:10:19 Test Item Value Reference Range Interpretation Comme nts POCT Molecular FluA (test code = 31303-8) Negative Negative POCT Molecular FluB (test code = 11024-9) Negative Negative Lab Interpretation (test code = 95623-8) Normal [id number] 18:55:11 Test Item Value Reference Interpretation Comments Range TROPONIN I (test 0.000 ng/mL See_Comment [Automated code = 6263932598) message] The system which generated this result transmitted reference range : <=0.034. The reference range was not used to interpret this result as normal/abnormal . MARTHA (test code = Reference (Normal) MARTHA) Range (defined by the 99th percentile reference limit): <= 0.034 ng/mL Note: Cardiac troponin begins to rise 3-4 hours after the onset of ischemia. Repeat in 4-6 hours if the sample was drawn within 3-4 hours of the onset of the symptom and found normal. Diagnosis of myocardial injury is made with acute changes in cTn concentrations with at least one serial sample above the 99th percentile upper reference limit (URL), taken together with the patient's clinical presentation. Biotin has been reported to cause a negative bias, interpret results relative to patient's use of biotin. Lab Interpretation Normal (test code = 22347-9) [id number] 18:51:49 Test Item Value Reference Range Interpretation Comments NT-proBNP (test code 47 pg/mL See_Comment [Autom ated = 5806122673) message] The system which generated this result transmitted reference range : <=125. The reference range was not used to interpret this result as normal/abnormal . MARTHA (test code = MARTHA) Biotin has been reported to cause a negative bias, interpret results relative to patient's use of biotin. Lab Interpretation Normal (test code = 61351-1) [facility] (61240)2021-07-31 18:25:25 Test Item Value Reference Range Interpretation Comments NA (test code = 141 mmol/L 135-145 8473834911) K (test code = 4.1 mmol/L 3.5-5.0 3802243677) CL (test code = 106 mmol/L 98-108 8924576816) CO2 TOTAL (test code = 22 mmol/L 23-31 L 2938232359) AGAP (test code = 2-16 7943936259) BUN (test code = 10 mg/dL 7-23 6372252685) GLUCOSE (test code = 113 mg/dL 70-110 H 2790154563) CREATININE (test code = 0.58 mg/dL 0.50-1.04 6502388399) TOTAL BILI (test code = 0.7 mg/dL 0.1-1.0 2444938373) CALCIUM (test code = 9.2 mg/dL 8.6-10.6 2439263720) T PROTEIN (test code = 7.9 g/dL 6.3-8.2 1297149918) ALBUMIN (test code = 4.9 g/dL 3.5-5.0 1714433486) ALK PHOS (test code = 82 U/L 34-122 7635097145) ALTv (test code = 16 U/L 535 1742-6) AST(SGOT) (test code = 23 U/L 13-40 5697331419) eGFR (test code = mL/min/1.73m2 1935760206) MARTHA (test code = MARTHA) Association of Glomerular Filtration Rate (GFR) and Staging of Kidney Disease* + --+ --+ ------+| GFR (mL/min/1.73 m2) ?| With Kidney Damage ?| ?Without Kidney Damage+ --------+ --------+ +| ?>90 ?| ?Stage one ?| ? Normal ?+ ---+ ---+ -------+| ?60-89 ?| ?Stage two ?| ? Decreased GFR ? + --+ --+ ------+| ?30-59 ?| ?Stage three ?| ? Stage three ? + --+ --+ ------+| ?15-29 ?| ?Stage four ? | ? Stage four ?+ ---+ ---+ -------+| ?<15 (or dialysis) ? ?| ?Stage five ? | ? Stage five ?+ ---+ ---+ -------+ *Each stage assumes the associated GFR level has been in effect for at least three months. ?Stages 1 to 5, with or without kidney disease, indicate chronic kidney disease. Notes: Determination of stages one and two (with eGFR >59mL/min/1.73 m2) requires estimation of kidney damage for at least three months as defined by structural or functional abnormalities of the kidney, manifested by either:Pathological abnormalities or Markers of kidney damage (including abnormalities in the composition of the blood or urine or abnormalities in imaging tests). Lab Interpretation Abnormal (test code = 55162-4) [facility] 18:25:25 Test Item Value Reference Range Interpretation Comments LIPASE (test code = 1534544393) 36 U/L 0-220 Lab Interpretation (test code = Normal 48812-2) [facility] WITH [id number] 18:22:48 Test Item Value Reference Range Interpretation Comments WBC (test code = See_Comment [Automated 2090-2) message] The sy stem which generated this result transmitted reference range : 4.30 - 11.10 10*3/?L. The reference range was not used to interpret this result as normal/abnormal . RBC (test code = See_Comment [Automated 789-8) message] The sy stem which generated this result transmitted reference range : 3.93 - 5.25 10*6/?L. The reference range was not used to interpret this result as normal/abnormal . HGB (test code = 15.2 g/dL 11.6-15.0 H 718-7) HCT (test code = 43.4 % 35.7-45.2 4544-3) MCV (test code = 94.6 fL 80.6-95.5 787-2) MCH (test code = 33.1 pg 25.9-32.8 H 785-6) MCHC (test code = 35.0 g/dL 31.6-35.1 786-4) RDW-SD (test code = 43.4 fL 39.0-49.9 38763-0) RDW-CV (test code = 12.4 % 12.0-15.5 788-0) PLT (test code = See_Comment [Automated 777-3) message] The sy stem which generated this result transmitted reference range : 166 - 358 10*3/ ?L. The reference r inez was not used to interpret this result as normal/abnormal . MPV (test code = 9.5 fL 9.5-12.9 12111-3) NRBC/100 WBC (test See_Comment [Automat ed code = 5879907004) message] The system which generated this result transmitted reference range : 0.0 - 10.0 /100 WBCs. The refer ence range was not u sed to interpret th is result as normal/abnormal . NRBC x10^3 (test code <0.01 See_Comment [Auto mated = 6646679080) message] The s ystem which generated this result transmitted reference range : 10*3/?L. The reference range was not used to interpret this result as normal/abnormal . GRAN MAT (NEUT) % 88.0 % (test code = 770-8) IMM GRAN % (test code 0.30 % = 8219016941) LYMPH % (test code = 8.2 % 736-9) MONO % (test code = 3.2 % 5905-5) EOS % (test code = 0.2 % 713-8) BASO % (test code = 0.1 % 706-2) GRAN MAT x10^3(ANC) 8.46 10*3/uL 1.88-7.09 H (test code = 0194837199) IMM GRAN x10^3 (test 0.03 10*3/uL 0.00-0.06 code = 9270849049) LYMPH x10^3 (test code 0.79 10*3/uL 1.32-3.29 L = 731-0) MONO x10^3 (test code 0.31 10*3/uL 0.33-0.92 L = 742-7) EOS x10^3 (test code = <0.03 0.03-0.39 L 711-2) BASO x10^3 (test code <0.03 0.01-0.07 = 704-7) Lab Interpretation Abnormal (test code = 54391-2) [facility] [id number] 17:45:00 Test Item Value Reference Range Interpretation Comments POCT PREG (test code = 1605) Negative On board controls acceptable with Present C Line (test code = 3574) POCT PREG LOT # (test code = 3575) [id number] POCT PREG TEST DATE (test 12/27/2022 code = 3576) Lab Interpretation (test code = Normal 49318-5) [facility] [id number] 18:14:05 Test Item Value Reference Range Interpretation Comments POCT Molecular FluA (test code = Negative Negative 85688-3) POCT Molecular FluB (test code = Negative Negative 03596-6) Lab Interpretation (test code = Normal 09420-1) [facility]"
[2022-08-05] MEDS ORDERED: ONDANSETRON 4 MG/2 ML VIAL ONE (11:28)
--- NOTE | 2022-08-05 11:30 | RAD REPORT ---
EXAM DESCRIPTION: CT - CTHCSPWOC - 08/05/2022 11:14 am CLINICAL HISTORY: Trauma, head and neck injury. SEIZURE COMPARISON: No comparisons TECHNIQUE: Axial 5 mm thick images of the head were obtained. Axial 2 mm thick images of the cervical spine were obtained with sagittal and coronal reconstruction images generated and reviewed. All CT scans are performed using dose optimization technique as appropriate and may include automated exposure control or mA/KV adjustment according to patient size. FINDINGS: CT HEAD WITHOUT CONTRAST: No acute hemorrhage, hydrocephalus or extra-axial collection is identified.No areas of brain edema or midline shift. The paranasal sinuses and mastoids are clear.The calvarium is intact. CT CERVICAL SPINE WITHOUT CONTRAST: No fracture or subluxation.Spondylosis is present lower cervical levels, notable at C5-6.No preverteb ral soft tissues swelling is identified. IMPRESSION: No acute intracranial or cervical spine findings.
[2022-08-05 11:42] LABS: Absolute Lymphocytes (CBC) 0.8 K/uL (0.7-4.9); Hematocrit 40.6 % (36.0-45.0); Lymphocytes % 10.8 % (15.3-44.8); MCV 93.9 fL (80-100); MPV 7.7 fL (7.6-11.3); RBC Red Blood Cell Count 4.32 M/uL (3.86-4.86)
[2022-08-05 11:48] LABS: Protime INR 1.02
[2022-08-05] MEDS ORDERED: levETIRAcetam 1,000 MG in NA CHLORIDE 0.9% 100 ML IV ONE (12:00)
[2022-08-05 12:01] LABS: ALT/SGPT 18 U/L (13-56); AST/SGOT 14 U/L (15-37); Albumin 3.8 g/dL (3.4-5.0); Alkaline Phosphatase 66 U/L (45-117); BUN Blood Urea Nitrogen 9 mg/dL (7-18); Bicarbonate 21 mEq/L (21-32); Bilirubin Direct 0.2 mg/dL (0-0.2); Bilirubin Total 0.6 mg/dL (0.2-1.0); Glomerular Filtration Rate 96 ml/min (=/>90); Glucose Level 133 mg/dL (74-106); Potassium 3.7 mEq/L (3.5-5.1); Sodium Level 136 mEq/L (136-145)
[2022-08-05] MEDS ORDERED: ACETAMINOPHEN 500 MG TAB ONE (12:18)
[2022-08-05 12:42] LABS: Specific Gravity 1.012 (1.005-1.030)
[2022-08-05 12:49] LABS: Specific Gravity 1.012 (1.005-1.030); Urine Bacteria >50 /HPF (<20); Urine Bilirubin NEGATIVE (Negative); Urine Blood 1+ (Negative); Urine Clarity Clear (Clear); Urine Color Light-Yellow (Yellow); Urine Glucose NEGATIVE (Negative); Urine Mucus 3+ /HPF (None Seen); Urine Protein NEGATIVE (Negative); Urine Urobilinogen Normal (Normal)
[2022-08-05 12:50] LABS: Barbiturates NEGATIVE (NEGATIVE); Benzodiazepines NEGATIVE (NEGATIVE); Cocaine NEGATIVE (NEGATIVE); METHAMPHETAM NEGATIVE (NEGATIVE); Methadone NEGATIVE (NEGATIVE); Opiates NEGATIVE (NEGATIVE); Phencyclidine NEGATIVE (NEGATIVE); THC Cannibis POSITIVE (NEGATIVE)
--- NOTE | 2022-08-05 13:42 | RAD REPORT ---
EXAM DESCRIPTION: Maritza Single View08/05/2022 1:28 pm CLINICAL HISTORY: Chest pain COMPARISON: none FINDINGS: The lungs appear clear of acute infiltrate. The heart is normal size IMPRESSION: No acute abnormalities displayed
--- NOTE | 2022-08-05 13:46 | ER ---
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 Coronavirus screen: Vaccine status: Patient reports being unvaccinated. Ebola Screen: No symptoms or risks identified at this time. Initial Sepsis Screen: Does the patient meet any 2 criteria? No. Patient's initial sepsis screen is negative. Does the patient have a suspected source of infection? No. Patient's initial sepsis screen is negative. Risk Assessment: Do you want to hurt yourself or someone else? Patient reports no desire to harm self or others. Onset of symptoms was August 05, 2022. 11:00 Method Of Arrival: EMS: [facility] 11:00 Acuity: JUAN DAVID 2 ph Triage Assessment: 11:03 General: Appears in no apparent distress. comfortable, well groomed, Behavior is calm, ph cooperative, appropriate for age. Pain: Complains of pain in chest. Neuro: Level of Consciousness is awake, obeys commands, Oriented to person, place, time, situation, Seizure activity reported prior to arrival. Patient is post-ictal at this time. Cardiovascular: Reports chest pain, nausea, Capillary refill < 3 seconds in bilateral fingers Patient's skin is warm and dry. Respiratory: Airway is patent Respiratory effort is even, unlabored. GI: Reports nausea. Derm: Skin is pink, warm \T\ dry. Musculoskeletal: Circulation, motion, and sensation intact. Range of motion: intact in all extremities. 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 - Social history:: Smoking status: Patient reports the use of cigarette tobacco products, denies chronic smoking, but will smoke occasionally, cigars, Patient uses alcohol, occasionally. Patient/guardian denies using street drugs. Screenin:[address] [facility] ED Fall Risk Assessment (Adult) History of falling in the last 3 months, ph including since admission Yes- physiologic fall (2 pts) Confusion or Disorientation No (0 pts) Intoxicated or Sedated No (0 pts) Impaired Gait No (0 pts) Mobility Assist Device Used No (0 pt) Altered Elimination No (0 pt) Score/Fall Risk Level 0 - 2 = Low Risk Oriented to surroundings, Maintained a safe environment, Hourly rounding (assess needs \T\ fall precautionary measures) done. Abuse screen: Denies threats or abuse. Denies injuries from another. Nutritional screening: No deficits noted. Tuberculosis screening: No symptoms or risk factors identified. Assessment: 11:30 General: SEE TRIAGE ASSESSMENT. ph 12:38 Reassessment: Patient appears in no apparent distress at this time. Patient and/or ph family updated on plan of care and expected duration. Pain level reassessed. Patient is alert, oriented x 3, equal unlabored respirations, skin warm/dry/pink. Vital Signs: 11:00 BP 115 / 82; Pulse 86; Resp 18; Temp 97.7; Pulse Ox 100% on R/A; Weight 58.97 kg; ph Height 5 ft. 4 in. ; Pain 5/10; 12:09 BP 112 / 79; Pulse 73; Resp 18; Pulse Ox 98% on R/A; ph 13:00 BP 109 / 78; Pulse 72; Resp 16; Pulse Ox 100% on R/A; ph 14:21 BP 118 / 72; Pulse 76; Resp 18; Temp 98; Pulse Ox 99% on R/A; ph 11:00 Body Mass Index 22.31 (58.97 kg, 162.56 cm) ph 11:00 Pain Scale: Adult ph Sidell Coma Score: 11:03 Eye Response: spontaneous(4). Motor Response: obeys commands(6). Verbal Response: ph oriented(5). Total: 15. ED Course: 11:00 Patient arrived in ED. ph 11:01 Hillary Singh FNP is [facility]. jh7 11:01 Chavo oJaquin DO is Attending Physician. jh7 11:03 Triage completed. ph 11:04 Arm band placed on. ph 11:08 Katie Wharton, RN is Primary Nurse. ph 11:16 CT Head C Spine In Process Unspecified. EDMS 11:20 Initial lab(s) drawn, by me, sent to lab. aa5 12:37 Patient has correct armband on for positive identification. Bed in low position. Call ph light in reach. Side rails up X 1. Pulse ox on. NIBP on. Door closed. Noise minimized. Warm blanket given. 12:37 No provider procedures requiring assistance completed. ph 12:38 Seizure precautions initiated. ph 13:30 XRAY Chest (1 view) In Process Unspecified. EDMS 14:21 IV discontinued, intact, bleeding controlled, No redness/swelling at site. Pressure ph dressing applied. Administered Medications: 11:45 Drug: Ondansetron IVP 4 mg Route: IVP; Site: left hand; ph 12:38 Follow up: Response: No adverse reaction ph 12:19 Drug: Keppra IV 1000 mg Route: IV; Rate: 1 calculated rate; Site: left hand; ph 12:38 Follow up: Response: No adverse reaction; IV Status: Completed infusion ph 12:19 Drug: Acetaminophen PO 1000 mg Route: PO; ph 12:38 Follow up: Response: No adverse reaction ph 13:58 Drug: Rocephin IV 1 grams Route: IV; Rate: 1 calculated rate; Site: left hand; ph 14:20 Follow up: Response: No adverse reaction; IV Status: Completed infusion ph Medication: 11:05 VIS not applicable for this client. ph Outcome: 13:46 Discharge ordered by . [facility] 14:21 Discharged to home ambulatory, with family. ph 14:21 Condition: good 14:21 Discharge instructions given to patient, Instructed on discharge instructions, follow up and referral plans. medication usage, Demonstrated understanding of instructions, follow-up care, medications, Prescriptions given X 1. 14:22 Patient left the ED. ph Signatures: Dispatcher [employer] EDMS Carol Palm, KRISH RUTHERFORD aa Katie Wharton, KRISH RN Hillary Singh, MOLDING ROOM SUPERVISOR [place] [id number]
--- NOTE | 2022-08-05 13:47 | EDPHYS ---
Physician Documentation [facility] Name: Claribel Henley Age: 36 yrs Sex: Female : 1985 Arrival Date: 08/05/2022 Time: 10:56 Bed 17 Private MD: ED Physician Chavo Joaquin HPI: 08/05 11:03 This 36 yrs old Female presents to ER via EMS with complaints of Probable Seizure. jh7 11:03 The patient presents after having a single isolated seizure, that lasted 5 minute(s), jh7 the episode(s) was witnessed, by co-worker(s). Character of seizure(s): Loss of consciousness: the patient experienced loss of consciousness, Motor activity: focal activity. Seizure onset: just prior to arrival. Context: the seizure(s) was witnessed, by co-worker(s), occurred at work, occurred while the patient was standing. Seizure Hx: Last seizure: The patient's last seizure was approximately 1 year(s) ago. 11:03 Associated injury: Chest: pain, tenderness, Back: pain. 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 The patient jh7 states that this is happened 1 other time about 1 year ago. Her coworkers report that they heard a crash and that the patient was on the ground shaking and foaming at the mouth. On scene the patient was ANO x2 and she quickly became ANO x4. She complains of chest soreness after the event and back pain that has occurred for the past several days. No medical problems.. 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 - Social history:: Smoking status: Patient reports the use of cigarette tobacco products, denies chronic smoking, but will smoke occasionally, cigars, Patient uses alcohol, occasionally. Patient/guardian denies using street drugs. ROS: 11:03 Constitutional: Negative for fever, chills, and weight loss, Eyes: Negative for injury, jh7 pain, redness, and discharge, Neck: Negative for injury, pain, and swelling, Respiratory: Negative for shortness of breath, cough, wheezing, and pleuritic chest pain, Abdomen/GI: Negative for abdominal pain, nausea, vomiting, diarrhea, and constipation, MS/Extremity: Negative for injury and deformity, Skin: Negative for injury, rash, and discoloration, Neuro: Negative for headache, weakness, numbness, tingling, and seizure. 11:03 Cardiovascular: Positive for chest pain, with movement. 11:03 Back: Positive for flank pain, bilaterally. 11:03 Neuro: Positive for seizure activity, Negative for dizziness, headache, numbness, tingling, visual changes, weakness. 11:03 All other systems are negative. Exam: 11:03 Constitutional: This is a well developed, well nourished patient who is awake, alert, jh7 and in no acute distress. Head/Face: Normocephalic, atraumatic. Eyes: Pupils equal round and reactive to light, extra-ocular motions intact. Lids and lashes normal. Conjunctiva and sclera are non-icteric and not injected. Cornea within normal limits. Periorbital areas with no swelling, redness, or edema. Neck: Trachea midline, no thyromegaly or masses palpated, and no cervical lymphadenopathy. Supple, full range of motion without nuchal rigidity, or vertebral point tenderness. No Meningismus. Cardiovascular: Regular rate and rhythm with a normal S1 and S2. No gallops, murmurs, or rubs. Normal PMI, no JVD. No pulse deficits. Respiratory: Lungs have equal breath sounds bilaterally, clear to auscultation and percussion. No rales, rhonchi or wheezes noted. No increased work of breathing, no retractions or nasal flaring. Abdomen/GI: Soft, non-tender, with normal bowel sounds. No distension or tympany. No guarding or rebound. No evidence of tenderness throughout. Skin: Warm, dry with normal turgor. Normal color with no rashes, no lesions, and no evidence of cellulitis. MS/ Extremity: Pulses equal, no cyanosis. Neurovascular intact. Full, normal range of motion. Neuro: Awake and alert, GCS 15, oriented to person, place, time, and situation. Cranial nerves II-XII grossly intact. Motor strength 5/5 in all extremities. Sensory grossly intact. Cerebellar exam normal. Normal gait. 11:03 Back: CVA tenderness, that is mild, is noted bilaterally. Vital Signs: 11:00 BP 115 / 82; Pulse 86; Resp 18; Temp 97.7; Pulse Ox 100% on R/A; Weight 58.97 kg; ph Height 5 ft. 4 in. ; Pain 5/10; 12:09 BP 112 / 79; Pulse 73; Resp 18; Pulse Ox 98% on R/A; ph 13:00 BP 109 / 78; Pulse 72; Resp 16; Pulse Ox 100% on R/A; ph 14:21 BP 118 / 72; Pulse 76; Resp 18; Temp 98; Pulse Ox 99% on R/A; ph 11:00 Body Mass Index 22.31 (58.97 kg, 162.56 cm) ph 11:00 Pain Scale: Adult ph Thornwood Coma Score: 11:03 Eye Response: spontaneous(4). Motor Response: obeys commands(6). Verbal Response: ph oriented(5). Total: 15. MDM: 11:02 Patient medically screened. [facility] 13:55 Differential diagnosis: cerebral vascular accident, drug overdose, seizure. Data [facility] reviewed: vital signs, nurses notes, lab test result(s), EKG, radiologic studies, CT scan. I considered the following discharge prescriptions or medication management in the emergency department Medications were administered in the Emergency Department. See MAR. Independent interpretation of the following test(s) in the Emergency Department EKG: See my EKG interpretation above X-Ray: My interpretation is no acute findingd. Counseling: I had a detailed discussion with the patient and/or guardian regarding: the historical points, exam findings, and any diagnostic results supporting the discharge/admit diagnosis, lab results, radiology results, the need for outpatient follow up, a neurologist, to return to the emergency department if symptoms worsen or persist or if there are any questions or concerns that arise at home. Response to treatment: the patient's symptoms have markedly improved after treatment. Special discussion: Patient denied burning with urination but states that she had flank pain for the past 3 days with no injury. Agreed to treat for UTI. Strongly encouraged the patient to follow-up with Dr. Ramos with neurology within the next few days.. 08/05 11:02 Order name: Acetaminophen; Complete Time: 12:11 [facility] 08/05 11:02 Order name: Basic Metabolic Panel; Complete Time: 12:11 [facility] 08/05 11:02 Order name: CBC with Diff; Complete Time: 12:11 [facility] 08/05 11:02 Order name: ETOH Level; Complete Time: 12:11 [facility] 08/05 11:02 Order name: Hepatic Function; Complete Time: 12:11 [facility] 08/05 11:02 Order name: PT-INR; Complete Time: 12:11 [facility] 08/05 11:02 Order name: Test, Urine; Complete Time: 12:49 [facility] 08/05 11:02 Order name: Ptt, Activated; Complete Time: 12:11 [facility] 08/05 11:02 Order name: Salicylate; Complete Time: 12:20 [facility] 08/05 11:02 Order name: Urinalysis w/ reflexes; Complete Time: 12:49 [facility] 08/05 11:02 Order name: Urine Drug Screen; Complete Time: 12:50 [facility] 08/05 11:25 Order name: Troponin High Sensitivity; Complete Time: 12:49 [facility] 08/05 11:02 Order name: CT Head C Spine; Complete Time: 11:31 [facility] 08/05 12:53 Order name: XRAY Chest (1 view); Complete Time: 13:45 [facility] 08/05 11:02 Order name: EKG; Complete Time: 11:03 [facility] 08/05 11:02 Order name: EKG - Nurse/Tech; Complete Time: 11:47 [facility] 08/05 11:02 Order name: IV Saline Lock; Complete Time: 11:07 [facility] 08/05 11:02 Order name: Labs collected and sent; Complete Time: 11:47 [facility] EC:34 Rate is 77 beats/min. Rhythm is regular. QRS Bieber is Normal. [place] interval is normal at [facility] 154 msec. QT interval is normal at 406 msec. No Q waves. Clinical impression: NSR w/ Non-specific ST/T Changes. Administered Medications: 11:45 Drug: Ondansetron IVP 4 mg Route: IVP; Site: left hand; ph 12:38 Follow up: Response: No adverse reaction ph 12:19 Drug: Keppra IV 1000 mg Route: IV; Rate: 1 calculated rate; Site: left hand; ph 12:38 Follow up: Response: No adverse reaction; IV Status: Completed infusion ph 12:19 Drug: Acetaminophen PO 1000 mg Route: PO; ph 12:38 Follow up: Response: No adverse reaction ph 13:58 Drug: Rocephin IV 1 grams Route: IV; Rate: 1 calculated rate; Site: left hand; ph 14:20 Follow up: Response: No adverse reaction; IV Status: Completed infusion ph Disposition: 12:07 Co-signature as Attending Physician, Chavo Joaquin DO I was immediately available on-site ms3 in the Emergency Department for consultation in the care of the patient. Disposition Summary: 08/05/22 13:46 Discharge Ordered Location: [place] [id number] Problem: new [facility] Symptoms: have improved [facility] Condition: Stable [facility] Diagnosis - Other seizures 7 - Contusion of front wall of thorax jh7 - UTI/ Urinary tract infection, site not specified [facility] Followup: [facility] - With: Private Physician - When: 2 - 3 days - Reason: Recheck today's complaints Discharge Instructions: - Discharge Summary Sheet 7 - Seizure, Adult jh7 - Urinary Tract Infection, Adult jh7 - Chest Contusion, Adult, [id number] 7 - Seizure, Adult, [id number] [facility] Forms: - Work release form ph - Family Work Release ph - Medication Reconciliation Form [facility] - Thank You Letter [facility] - Antibiotic Education [facility] Prescriptions: - Macrobid 100 mg Oral Capsule - take 1 capsule by ORAL route every 12 hours for 7 days; 14 capsule; Refills: 0, jh7 Product Selection Permitted Signatures: Dispatcher [employer] Katie Chan, RN RN Chavo Bourgeois DO DO ms3 Hillary Singh, SPONGE FISHERMAN SPONGE FISHERMAN [facility]
[2022-08-05] MEDS ORDERED: NA CHLORIDE 0.9% 50 ML ONE (13:50)
[2022-08-05] MEDS ORDERED: CEFTRIAXONE 1000 MG/VIAL ONE (13:50)
[2022-08-05 14:49] VITALS: BP 118/72; TEMP 98; O2SAT 99
--- NOTE | 2022-08-06 16:00 | EKG ---
Test Date: 2022-08-05 Test Time: 11:30:53 Sweatband Cutting Machine Operator: PH MEASUREMENT RESULTS: Intervals: Rate: 77 SD: 154 QRSD: 86 QT: 406 QTc: 459 Gazelle: P: 65 SD: 154 QRS: 82 T: 83 INTERPRETIVE STATEMENTS: Normal sinus rhythm Nonspecific ST abnormality Abnormal ECG No previous ECG available for comparison Electronically Signed On 08-06-22 15:57:33 CDT by Mic Zarate
== END 2022-08-05 14:22 | disposition home or self-care (01) ==
LOC: ER 10:56
DX: G40.89 Other seizures (principal); S20.213A Contusion of bilateral front wall of thorax, initial encounter; N39.0 Urinary tract infection, site not specified
CPT/HCPCS: 96365; 96367; 93005; 85025; 81001; 80048; 36415; 81025; 85610; 80076; 85730; 84484; 80307; 70450; 72125; 71045; 96375; 99284; J1953; J2405; J0696; G0480 ×3

== ENCOUNTER 2022-08-22 10:08 | Emergency (ER) | payer BC ==
--- OUTSIDE RECORDS SUMMARY | 2022-08-22 10:13 | XMS REPORT | Continuity of Care Document ---
:1985 [facility] Organization [facility] t Address [address] [facility]. [address] [place] [address] Care Team Providers Name Role Phone GERRY GREEN Primary Care Physician Unavailable SORAIDA ARNDT Attending Clinician Unavailable Ebrahieugene [employer]ISTS[facility]ida Attending Clinician Unknown, Attending Attending Clinician Unavailable Doctor Unassigned, Gans Attending Clinician Unavailable Debby Jain RN Attending Clinician Unavailable Only, Ang Db Test Attending Clinician Unavailable Sd Tapia Attending Clinician SD SHOOK Attending Clinician Unavailable SHANNA GOMEZ Attending Clinician Unavailable Shanna Garza Attending Clinician RISHABH KELLEY Attending Clinician Unavailable Rishabh Bey Attending Clinician Provider, [facility] Attending Clinician Unavailable Liz Molina RN Attending Clinician Unavailable XOCHILT NORRIS Attending Clinician Unavailable Xochilt Norris MD Attending Clinician Bill Gonzalez DO Attending Clinician 2, [facility] Attending Clinician Unavailable Jacqueline DUBOSE, Katiana Attending Clinician KATIANA CLIFFORD Attending Clinician Unavailable Lab, [facility] Fam Pob I Attending Clinician Unavailable Amelie Palmer Attending Clinician AMELIE QIU Attending Clinician Unavailable Teetee Koch RN Attending Clinician Unavailable DANIEL HERNANDEZ Attending Clinician Unavailable Pob[facility], Acute [facility] Attending Clinician Unavailable GERRY GREEN Attending Clinician Unavailable ANNI PHAN Attending Clinician Unavailable ROMÁN MONDRAGON Attending Clinician Unavailable ROMÁN MONDRAGON Attending Clinician Unavailable SHANNA GMOEZ Admitting Clinician Unavailable ROMÁN MONDRAGON Admitting Clinician [...] 1-15 it y of d d 00:00: [place] 00 Medical Branch Stress at Stress at Disease Active Uni vers home home 1-15 ity of 00:00: [place] 00 Medical Branch Current Current Disease Active Univers mild mild 1-15 ity of episode [place] 00 Medical depressive depressive Br anch disorder, disorder, unspecifie unspecifie d whether d whether recurrent recurrent Adjustment Adjustment Disease Active U nivers insomnia insomnia 1-15 ity of 00:00: [place] 00 Medical Branch Bronchitis Bronchitis Disease Active U nivers 4-28 ity of 00:00: [place] 00 Medical Branch Nose Nose Disease Active Univers congestion congestion 4-28 it y of 00:00: [place] 00 Medical Branch Exposure Exposure Disease Active Unive rs to to 4-28 ity of SARS-assoc SARS-assoc 00:00: [place] 00 Medical coronaviru coronaviru Br anch s s Acute Acute Disease Active 2020- Univers bacterial bacterial 3-17 ity of ph[place]iti [place]iti [place] Sore Sore Disease Active 2019- Univers throat throat 3-17 ity of 00:00: [place] 00 Medical Branch Nicotine Nicotine Disease Active 2019- Unive rs dependence dependence 3-17 it y of , , 00:00: [place] cigarettes cigarettes 00 Me dical , , Branch uncomplica uncomplica hadley hadley Cough Cough Disease Active 2019- Univers 3-17 ity of 00:00: [place] 00 Medical Branch Status Status Disease Active 2019- Univers post tubal post tubal 4-12 it y of ligation ligation 00:00: [place] 00 Medical Branch Shoulder Shoulder Disease Active Unive rs dystocia dystocia 4-12 ity of during during 00:00: [place] labor and labor and [address] [place] [address] delivery delivery Branch History of History of Disease Active U nivers seizure seizure 4-12 ity of 00:00: [place] 00 Medical Branch H/O H/O Disease Active 2019- Univers maternal maternal 1-24 ity of cardiomyop cardiomyop 00:00: [place] athy, athy, 00 Medical currently currently Bran ch , , third third trimester trimester History of History of Disease Active 2017-03 Overview : Univers echocardio echocardio 1- Formattin ity of gram gram 00:00: g of this [place] 00 note Medical might be Branch different from the original. See results from 11/2017 in chart review Cervical Cervical Disease Active 2017-03 Overview: Un patrick Papanicola Papanicola 1-01 Formattin ity of ou smear ou smear 00:00: g of this [place] negative negative 00 note Medica l within within might be Branch last 12 last 12 different months months from the original. 11/2017 neg pap and neg hpv see scanned records Disease Active 2017-03 Overview : Univers cardiomyop cardiomyop 0-29 Formattin ity of athy athy 00:00: g of this [place] note Medical might be Branch different from the original. Reported with 2008 11/2017 normal echo, see scanned records Allergies, Adverse Reactions, Alerts Allergy Allergy Status Severity Reaction(s) Onset Inactive Treating Comm ents Source Name Type Date Date Clinician NO KNOWN Drug Active Univers ALLERGIE Class ity of S [facility] Social History Social Habit Start Date Stop Date Quantity Comments Source Exposure to 2022-05-03 2022-05-13 Not sure [facility] SARS-CoV-2 00:00:00 10:37:00 [place] Medical (event) Branch Alcohol intake 2021-07-31 2021-07-31 0 /d [facility] 00:00:00 00:00:00 [facility] Tobacco use and 2019-07-26 2019-07-26 Smokeless tobacco Un iversity of exposure 00:00:00 00:00:00 non-user [facility] Tobacco Comment 2018-01-25 2018-01-25 [facility] 00:00:00 she found out [place] Medic al about Branch History of 2017-12-01 Cigarette Smoker Universi ty of tobacco use 00:00:00 [facility] Sex [birth year] Universit y of 00:00:00 00:00:00 [facility] Smoking Status Start Date Stop Date Source Tobacco smoking consumption [facility] unknown Branch Occasional tobacco smoker 2019-07-26 00:00:00 Un iversity of [facility] Medications Ordered Filled Start Stop Current Ordering Indication Dosage Frequency Signature Comments Components Source Medication Medication Date Date Medication? Clinician (SIG) Name Name amoxicillin 2022- No [id number] 875mg Take 1 Univers 875 mg 2-14 02-25 tablet by ity of tablet 00:00: 05:59 mouth in [place] 00 :00 the Medical morning Branch and 1 tablet in the evening. Do all this for 10 days. amoxicillin 2022- No [id number] 875mg Take 1 Univers 875 mg 2-14 02-25 tablet by ity of tablet 00:00: 05:59 mouth in [place] 00 :00 the Medical morning Branch and 1 tablet in the evening. Do all this for 10 days. ondansetron 2021- No 8mg 8 mg, Slow Univers (ZOFRAN 07-31- IV Push, ity of (PF)) 18:45: 17:55 ONCE, 1 [place] injection 8 00 :00 dose, On Medi gloria mg Thu07/31/21 Branch at 1345, MARIA EUGENIA NaCl 0.9% 2021-0 2021- No 1000mL at 999 Uni vers (NS) bolus 5-04 05-04 mL/hr, ity of infusion 18:45: 20:16 1,000 mL, [place] as 1,000 mL 00 :00 IV Medical Infusion, Branch ONCE, 1 dose, On Thu07/31/21 at 1345, MARIA EUGENIA dicyclomine 2021-0 Yes [id number] 20mg Take 1 U nivers 20 mg 5-04 tablet by ity of tablet 00:00: mouth 4 [place] 00 (four) Medical times Branch daily as needed for Abdominal pain. ondansetron 2021-0 Yes [id number] 4mg Take 1 U nivers 4 mg 5-04 tablet by ity of disintegrat 00:00: mouth [place] ing tablet 00 every 8 Medica l (eight) Branch hours as needed for Nausea and Vomiting (N/V). dicyclomine 2021-0 Yes [id number] 20mg Take 1 U nivers 20 mg 5-04 tablet by ity of tablet 00:00: mouth 4 [place] 00 (four) Medical times Branch daily as needed for Abdominal pain. ondansetron 2021-0 Yes [id number] 4mg Take 1 U nivers 4 mg 5-04 tablet by ity of disintegrat 00:00: mouth [place] ing tablet 00 every 8 Medica l (eight) Branch hours as needed for Nausea and Vomiting (N/V). dicyclomine 2-0 Yes [id number] 20mg Take 1 U nivers 20 mg 5-04 tablet by ity of tablet 00:00: mouth 4 [place] 00 (four) Medical times Branch daily as needed for Abdominal pain. ondansetron 2-0 Yes [id number] 4mg Take 1 U nivers 4 mg 5-04 tablet by ity of disintegrat 00:00: mouth [place] ing tablet 00 every 8 Medica l (eight) Branch hours as needed for Nausea and Vomiting (N/V). dicyclomine 2-0 Yes [id number] 20mg Take 1 U nivers 20 mg 5-04 tablet by ity of tablet 00:00: mouth 4 [place] 00 (four) Medical times Branch daily as needed for Abdominal pain. ondansetron 2-0 Yes [id number] 4mg Take 1 U nivers 4 mg 5-04 tablet by ity of disintegrat 00:00: mouth [place] ing tablet 00 every 8 Medica l (eight) Branch hours as needed for Nausea and Vomiting (N/V). dicyclomine 2022-0 Yes [id number] 20mg Take 1 U nivers 20 mg 5-04 tablet by ity of tablet 00:00: mouth 4 [place] 00 (four) Medical times Branch daily as needed for Abdominal pain. ondansetron 2021-0 Yes [id number] 4mg Take 1 U nivers 4 mg 5-04 tablet by ity of disintegrat 00:00: mouth [place] ing tablet 00 every 8 Medica l (eight) Branch hours as needed for Nausea and Vomiting (N/V). dicyclomine 2-0 Yes [id number] 20mg Take 1 U nivers 20 mg 5-04 tablet by ity of tablet 00:00: mouth 4 [place] 00 (four) Medical times Branch daily as needed for Abdominal pain. ondansetron 2021-0 Yes [id number] 4mg Take 1 U nivers 4 mg 5-04 tablet by ity of disintegrat 00:00: mouth [place] ing tablet 00 every 8 Medica l (eight) Branch hours as needed for Nausea and Vomiting (N/V). dicyclomine 2-0 Yes [id number] 20mg Take 1 U nivers 20 mg 5-04 tablet by ity of tablet 00:00: mouth 4 [place] 00 (four) Medical times Branch daily as needed for Abdominal pain. ondansetron 2021-0 Yes [id number] 4mg Take 1 U nivers 4 mg 5-04 tablet by ity of disintegrat 00:00: mouth [place] ing tablet 00 every 8 Medica l (eight) Branch hours as needed for Nausea and Vomiting (N/V). ondansetron 2020-03 Yes [id number] 4mg Take 1 Univers 4 mg 2-13 tablet by ity of disintegrat 00:00: mouth [place] ing tablet 00 every 8 Medica l (eight) Branch hours as needed for Nausea and Vomiting (N/V). ondansetron 2020- Yes [id number] 4mg Take 1 Univers 4 mg 2-13 tablet by ity of disintegrat 00:00: mouth [place] ing tablet 00 every 8 Medica l (eight) Branch hours as needed for Nausea and Vomiting (N/V). ondansetron 2020-03 Yes [id number] 4mg Take 1 Univers 4 mg 2-13 tablet by ity of disintegrat 00:00: mouth [place] ing tablet 00 every 8 Medica l (eight) Branch hours as needed for Nausea and Vomiting (N/V). ondansetron 2020-03 Yes [id number] 4mg Take 1 Univers 4 mg 2-13 tablet by ity of disintegrat 00:00: mouth [place] ing tablet 00 every 8 Medica l (eight) Branch hours as needed for Nausea and Vomiting (N/V). ondansetron 2020-03 Yes [id number] 4mg Take 1 Univers 4 mg 2-13 tablet by ity of disintegrat 00:00: mouth [place] ing tablet 00 every 8 Medica l (eight) Branch hours as needed for Nausea and Vomiting (N/V). ondansetron 2020-03 Yes [id number] 4mg Take 1 Univers 4 mg 2-13 tablet by ity of disintegrat 00:00: mouth [place] ing tablet 00 every 8 Medica l (eight) Branch hours as needed for Nausea and Vomiting (N/V). ondansetron 2020-03 Yes [id number] 4mg Take 1 Univers 4 mg 2-13 tablet by ity of disintegrat 00:00: mouth [place] ing tablet 00 every 8 Medica l (eight) Branch hours as needed for Nausea and Vomiting (N/V). ondansetron 2020-03 Yes [id number] 4mg Take 1 Univers 4 mg 2-13 tablet by ity of disintegrat 00:00: mouth [place] ing tablet 00 every 8 Medica l (eight) Branch hours as needed for Nausea and Vomiting (N/V). ondansetron 2020-03 Yes [id number] 4mg Take 1 Univers 4 mg 2-13 tablet by ity of disintegrat 00:00: mouth [place] ing tablet 00 every 8 Medica l (eight) Branch hours as needed for Nausea and Vomiting (N/V). ondansetron 2020-03 Yes [id number] 4mg Take 1 Univers 4 mg 2-13 tablet by ity of disintegrat 00:00: mouth [place] ing tablet 00 every 8 Medica l (eight) Branch hours as needed for Nausea and Vomiting (N/V). ondansetron 2020-03 Yes [id number] 4mg Take 1 Univers 4 mg 2-13 tablet by ity of disintegrat 00:00: mouth [place] ing tablet 00 every 8 Medica l (eight) Branch hours as needed for Nausea and Vomiting (N/V). ondansetron 2020-03 Yes [id number] 4mg Take 1 Univers 4 mg 2-13 tablet by ity of disintegrat 00:00: mouth [place] ing tablet 00 every 8 Medica l (eight) Branch hours as needed for Nausea and Vomiting (N/V). ondansetron 2020-03 Yes [id number] 4mg Take 1 Univers 4 mg 2-13 tablet by ity of disintegrat 00:00: mouth [place] ing tablet 00 every 8 Medica l (eight) Branch hours as needed for Nausea and Vomiting (N/V). ondansetron 2020-03 Yes [id number] 4mg Take 1 Univers 4 mg 2-13 tablet by ity of disintegrat 00:00: mouth [place] ing tablet 00 every 8 Medica l (eight) Branch hours as needed for Nausea and Vomiting (N/V). ondansetron 2020-03- No [id number] 4mg Take 1 Univers 4 mg 0-11 12-13 tablet by ity of disintegrat 00:00: 00:00 [place] tablet 00 :00 every 8 Medica l (eight) Branch hours as needed for Nausea and Vomiting (N/V). amphetamine Yes [id number] 5mg Take 1 Univers -dextroamph 1-15 capsule by it y of etamine 00:00: mouth [place] (ADDERALL 00 every Medical XR) 5 mg 24 morning. Bran ch hr capsule FLUoxetine Yes [id number] 10mg Take 1 U nivers 10 mg 1-15 capsule by ity of capsule 00:00: mouth [place] 00 daily. Medical Branch traZODone Yes [id number] 50mg Take 1 U nivers 50 mg 1-15 tablet by ity of tablet 00:00: mouth at [place] 00 bedtime. Medical Branch amphetamine Yes [id number] 5mg Take 1 Univers -dextroamph 1-15 capsule by it y of etamine 00:00: mouth [place] (ADDERALL 00 every Medical XR) 5 mg 24 morning. Bran ch hr capsule FLUoxetine Yes [id number] 10mg Take 1 U nivers 10 mg 1-15 capsule by ity of capsule 00:00: mouth [place] 00 daily. Medical Branch traZODone 0 Yes [id number] 50mg Take 1 U nivers 50 mg 1-15 tablet by ity of tablet 00:00: mouth at [place] 00 bedtime. Medical Branch amphetamine 0 Yes [id number] 5mg Take 1 Univers -dextroamph 1-15 capsule by it y of etamine 00:00: mouth [place] (ADDERALL 00 every Medical XR) 5 mg 24 morning. Bran ch hr capsule FLUoxetine Yes [id number] 10mg Take 1 U nivers 10 mg 1-15 capsule by ity of capsule 00:00: mouth [place] 00 daily. Medical Branch traZODone Yes [id number] 50mg Take 1 U nivers 50 mg 1-15 tablet by ity of tablet 00:00: mouth at [place] 00 bedtime. Medical Branch amphetamine Yes [id number] 5mg Take 1 Univers -dextroamph 1-15 capsule by it y of etamine 00:00: mouth [place] (ADDERALL 00 every Medical XR) 5 mg 24 morning. Bran ch hr capsule FLUoxetine Yes [id number] 10mg Take 1 U nivers 10 mg 1-15 capsule by ity of capsule 00:00: mouth [place] 00 daily. Medical Branch traZODone Yes [id number] 50mg Take 1 U nivers 50 mg 1-15 tablet by ity of tablet 00:00: mouth at [place] 00 bedtime. Medical Branch amphetamine Yes [id number] 5mg Take 1 Univers -dextroamph 1-15 capsule by it y of etamine 00:00: mouth [place] (ADDERALL 00 every Medical XR) 5 mg 24 morning. Bran ch hr capsule FLUoxetine Yes [id number] 10mg Take 1 U nivers 10 mg 1-15 capsule by ity of capsule 00:00: mouth [place] 00 daily. Medical Branch traZODone Yes [id number] 50mg Take 1 U nivers 50 mg 1-15 tablet by ity of tablet 00:00: mouth at [place] 00 bedtime. Medical Branch amphetamine Yes [id number] 5mg Take 1 Univers -dextroamph 1-15 capsule by it y of etamine 00:00: mouth [place] (ADDERALL 00 every Medical XR) 5 mg 24 morning. Bran ch hr capsule FLUoxetine Yes [id number] 10mg Take 1 U nivers 10 mg 1-15 capsule by ity of capsule 00:00: mouth [place] 00 daily. Medical Branch traZODone Yes [id number] 50mg Take 1 U nivers 50 mg 1-15 tablet by ity of tablet 00:00: mouth at [place] 00 bedtime. Medical Branch amphetamine 0 Yes [id number] 5mg Take 1 Univers -dextroamph 1-15 capsule by it y of etamine 00:00: mouth [place] (ADDERALL 00 every Medical XR) 5 mg 24 morning. Bran ch hr capsule FLUoxetine Yes [id number] 10mg Take 1 U nivers 10 mg 1-15 capsule by ity of capsule 00:00: mouth [place] 00 daily. Medical Branch traZODone Yes [id number] 50mg Take 1 U nivers 50 mg 1-15 tablet by ity of tablet 00:00: mouth at [place] 00 bedtime. Medical Branch amphetamine 0 Yes [id number] 5mg Take 1 Univers -dextroamph 1-15 capsule by it y of etamine 00:00: mouth [place] (ADDERALL 00 every Medical XR) 5 mg 24 morning. Bran ch hr capsule FLUoxetine Yes [id number] 10mg Take 1 U nivers 10 mg 1-15 capsule by ity of capsule 00:00: mouth [place] 00 daily. Medical Branch traZODone Yes [id number] 50mg Take 1 U nivers 50 mg 1-15 tablet by ity of tablet 00:00: mouth at [place] 00 bedtime. Medical Branch amphetamine 0 Yes [id number] 5mg Take 1 Univers -dextroamph 1-15 capsule by it y of etamine 00:00: mouth [place] (ADDERALL 00 every Medical XR) 5 mg 24 morning. Bran ch hr capsule FLUoxetine Yes [id number] 10mg Take 1 U nivers 10 mg 1-15 capsule by ity of capsule 00:00: mouth [place] 00 daily. Medical Branch traZODone Yes [id number] 50mg Take 1 U nivers 50 mg 1-15 tablet by ity of tablet 00:00: mouth at [place] 00 bedtime. Medical Branch amphetamine 2020-0 Yes [id number] 5mg Take 1 Univers -dextroamph 1-15 capsule by it y of etamine 00:00: mouth [place] (ADDERALL 00 every Medical XR) 5 mg 24 morning. Bran ch hr capsule FLUoxetine 2020-0 Yes [id number] 10mg Take 1 U nivers 10 mg 1-15 capsule by ity of capsule 00:00: mouth [place] 00 daily. Medical Branch traZODone 0 Yes [id number] 50mg Take 1 U nivers 50 mg 1-15 tablet by ity of tablet 00:00: mouth at [place] 00 bedtime. Medical Branch amphetamine 2020-0 Yes [id number] 5mg Take 1 Univers -dextroamph 1-15 capsule by it y of etamine 00:00: mouth [place] (ADDERALL 00 every Medical XR) 5 mg 24 morning. Bran ch hr capsule FLUoxetine 2020-0 Yes [id number] 10mg Take 1 U nivers 10 mg 1-15 capsule by ity of capsule 00:00: mouth [place] 00 daily. Medical Branch traZODone Yes [id number] 50mg Take 1 U nivers 50 mg 1-15 tablet by ity of tablet 00:00: mouth at [place] 00 bedtime. Medical Branch amphetamine 2020-0 Yes [id number] 5mg Take 1 Univers -dextroamph 1-15 capsule by it y of etamine 00:00: mouth [place] (ADDERALL 00 every Medical XR) 5 mg 24 morning. Bran ch hr capsule FLUoxetine 2020-0 Yes [id number] 10mg Take 1 U nivers 10 mg 1-15 capsule by ity of capsule 00:00: mouth [place] 00 daily. Medical Branch traZODone 0 Yes [id number] 50mg Take 1 U nivers 50 mg 1-15 tablet by ity of tablet 00:00: mouth at [place] 00 bedtime. Medical Branch amphetamine 2020-0 Yes [id number] 5mg Take 1 Univers -dextroamph 1-15 capsule by it y of etamine 00:00: mouth [place] (ADDERALL 00 every Medical XR) 5 mg 24 morning. Bran ch hr capsule FLUoxetine 2020-0 Yes [id number] 10mg Take 1 U nivers 10 mg 1-15 capsule by ity of capsule 00:00: mouth [place] 00 daily. Medical Branch traZODone Yes [id number] 50mg Take 1 U nivers 50 mg 1-15 tablet by ity of tablet 00:00: mouth at [place] 00 bedtime. Medical Branch amphetamine Yes [id number] 5mg Take 1 Univers -dextroamph 1-15 capsule by it y of etamine 00:00: mouth [place] (ADDERALL 00 every Medical XR) 5 mg 24 morning. Bran ch hr capsule FLUoxetine Yes [id number] 10mg Take 1 U nivers 10 mg 1-15 capsule by ity of capsule 00:00: mouth [place] 00 daily. Medical Branch traZODone Yes [id number] 50mg Take 1 U nivers 50 mg 1-15 tablet by ity of tablet 00:00: mouth at [place] 00 bedtime. Medical Branch Immunizations Ordered Filled Immunization Date Status Comments [facility] e Immunization Name Name Pneumococcal 13 2020-04-13 Completed Universit y of Conjugate, PCV13 00:00:00 [facility] dical (Prevnar 13) Branch Pneumococcal 13 2020-04-13 Completed Universit y of Conjugate, PCV13 00:00:00 [place] Me dical (Prevnar 13) Branch Pneumococcal 13 2020-04-13 Completed Universit y of Conjugate, PCV13 00:00:00 [facility] dical (Prevnar 13) Branch Pneumococcal 13 2020-04-13 Completed Universit y of Conjugate, PCV13 00:00:00 [facility] dical (Prevnar 13) Branch Pneumococcal 13 2020-04-13 Completed Universit y of Conjugate, PCV13 00:00:00 [facility] dical (Prevnar 13) Branch Pneumococcal 13 2020-04-13 Completed Universit y of Conjugate, PCV13 00:00:00 [place] Me dical (Prevnar 13) Branch Pneumococcal 13 2020-04-13 Completed Universit y of Conjugate, PCV13 00:00:00 [place] Me dical (Prevnar 13) Branch Pneumococcal 13 2020-04-13 Completed Universit y of Conjugate, PCV13 00:00:00 [place] Me dical (Prevnar 13) Branch Pneumococcal 13 2020-04-13 Completed Universit y of Conjugate, PCV13 00:00:00 [facility] dical (Prevnar 13) Branch Pneumococcal 13 2020-04-13 Completed Universit y of Conjugate, PCV13 00:00:00 [facility] dical (Prevnar 13) Branch Pneumococcal 13 2020-04-13 Completed Universit y of Conjugate, PCV13 00:00:00 [place] Pr dical (Prevnar 13) Branch Pneumococcal 13 2020-04-13 Completed Universit y of Conjugate, PCV13 00:00:00 [facility] dical (Prevnar 13) Branch Pneumococcal 13 2020-04-13 Completed Universit y of Conjugate, PCV13 00:00:00 [facility] dical (Prevnar 13) Branch Pneumococcal 13 2020-04-13 Completed Universit y of Conjugate, PCV13 00:00:00 [facility] dical (Prevnar 13) Branch TDAP 2018-04-22 Completed University of 00:00:00 [facility] TDAP 2018-04-22 Completed University of 00:00:00 [facility] TDAP 2018-04-22 Completed University of 00:00:00 [facility] TDAP 2018-04-22 Completed University of 00:00:00 [facility] TDAP 2018-04-22 Completed University of 00:00:00 [facility] TDAP 2018-04-22 Completed University of 00:00:00 [facility] TDAP 2018-04-22 Completed University of 00:00:00 [facility] TDAP 2018-04-22 Completed University of 00:00:00 [facility] TDAP 2018-04-22 Completed University of 00:00:00 [facility] TDAP 2018-04-22 Completed University of 00:00:00 [facility] TDAP 2018-04-22 Completed University of 00:00:00 [facility] TDAP 2018-04-22 Completed University of 00:00:00 [facility] TDAP 2018-04-22 Completed University of 00:00:00 [facility] TDAP 2018-04-22 Completed University of 00:00:00 [facility] Influenza Virus 2018-01-19 Completed Universit y of Vaccine - Whole 00:00:00 [facility] Influenza Virus 2018-01-19 Completed Universit y of Vaccine - Whole 00:00:00 [facility] Influenza Virus 2018-01-19 Completed Universit y of Vaccine - Whole 00:00:00 [facility] Influenza Virus 2018-01-19 Completed Universit y of Vaccine - Whole 00:00:00 [facility] Influenza Virus 2018-01-19 Completed Universit y of Vaccine - Whole 00:00:00 [facility] Influenza Virus 2018-01-19 Completed Universit y of Vaccine - Whole 00:00:00 [facility] Influenza Virus 2018-01-19 Completed Universit y of Vaccine - Whole 00:00:00 [facility] Influenza Virus 2018-01-19 Completed Universit y of Vaccine - Whole 00:00:00 [facility] Influenza Virus 2018-01-19 Completed Universit y of Vaccine - Whole 00:00:00 [facility] Influenza Virus 2018-01-19 Completed Universit y of Vaccine - Whole 00:00:00 [facility] Influenza Virus 2018-01-19 Completed Universit y of Vaccine - Whole 00:00:00 [facility] Influenza Virus 2018-01-19 Completed Universit y of Vaccine - Whole 00:00:00 [facility] Influenza Virus 2018-01-19 Completed Universit y of Vaccine - Whole 00:00:00 [facility] Influenza Virus 2018-01-19 Completed Universit y of Vaccine - Whole 00:00:00 [facility] Vital Signs Vital Name Observation Time Observation Value Comments Source Systolic blood 2022-05-13 16:50:00 108 mm[Hg] Univer sity of pressure [facility] Diastolic blood 2022-05-13 16:50:00 76 mm[Hg] Unive rsity of pressure [facility] Heart rate 2022-05-13 16:50:00 84 /min [facility] Body temperature 2022-05-13 16:50:00 37.28 Luz Marina [facility] Respiratory rate 2022-05-13 16:50:00 18 /min [facility] Body height 2022-05-13 16:50:[address] [facility] Body weight 2022-05-13 16:50:[address] [facility] BMI 2022-05-13 16:50:00 23.93 kg/m2 [facility] Oxygen saturation in 2022-05-13 16:50:00 97 /min University of Arterial blood by [facility] Pulse oximetry Branch Systolic blood 2021-07-31 20:00:00 122 mm[Hg] Univer sity of pressure [facility] [place] Diastolic blood 2021-07-31 20:00:00 76 mm[Hg] Unive rsity of pressure [facility] Heart rate 2021-07-31 20:00:00 61 /min Universi ty [facility] Respiratory rate 2021-07-31 20:00:00 21 /min [facility] Oxygen saturation in 2021-07-31 20:00:00 98 /min University of Arterial blood by [facility] Pulse oximetry Branch Body temperature 2021-07-31 17:33:00 36.22 Luz Marina Univ ersity of [facility] Body weight 2021-07-31 17:33:00 62.596 kg Universi ty of [facility] BMI 2021-07-31 17:33:00 20.38 kg/m2 Universi ty of [facility] Systolic blood 2021-03-11 17:50:00 130 mm[Hg] Univer sity of pressure [facility] [place] Diastolic blood 2021-03-11 17:50:00 82 mm[Hg] Unive rsity of pressure [facility] Heart rate 2021-03-11 17:50:00 81 /min Universi ty of [facility] [place] Body temperature 2021-03-11 17:50:00 36.56 Luz Marina [facility] [place] Respiratory rate 2021-03-11 17:50:00 17 /min [facility] [place] Body height 2021-03-11 17:50:00 175.3 cm Universi ty of [facility] [place] Body weight 2021-03-11 17:50:00 62.143 kg [facility] BMI 2021-03-11 17:50:00 20.23 kg/m2 Universi ty of [facility] Oxygen saturation in 2021-03-11 17:50:00 97 /min University of Arterial blood by [facility] Pulse oximetry Branch Procedures Procedure Date / Time Performing Clinician Source Performed POCT MOLECULAR FLU 2022-05-13 16:58:00 Unknown, [facility] CONSENT/REFUSAL FOR 2022-05-13 16:41:02 Doctor Unassigned, [facility] DIAGNOSIS AND TREATMENT [facility] XR CHEST 1 VW 2021-07-31 18:24:19 Shanna Gomez [facility] LIPASE 2021-07-31 17:51:00 Shanna Gomez [facility] TROPONIN I 2021-07-31 17:51:00 Shanna Gomez [facility] COMP. METABOLIC PANEL 2021-07-31 17:51:00 Shanna Gomez [facility] ([id number]) [facility] CBC WITH DIFF 2021-07-31 17:51:00 Shanna Gomez [facility] URINALYSIS 2021-07-31 17:51:00 Shanna Gomez [facility] N-TERMINAL PRO-BNP 2021-07-31 17:51:[address] [facility] POCT TEST 2021-07-31 17:45:00 Shanna Gomez [facility] NOTICE OF PRIVACY 2021-07-31 17:21:40 Doctor Unamargaritoigned, [facility] PRACTICES [facility] CONSENT/REFUSAL FOR 2021-07-31 17:21:28 Doctor Margoth, [facility] DIAGNOSIS AND TREATMENT [facility] ASSIGNMENT OF BENEFITS 2021-04-04 22:07:57 [facility] POCT MOLECULAR FLU 2021-03-11 18:02:00 Xochilt Norris [facility] PATIENT FINANCIAL Doctor Margoth, [facility] RESPONSIBILITY - ALL [facility] FORMS Encounters Start End Encounter Admission Attending Care Care Encounter Source Date/Time Date/Time Type Type Clinicians Facility Department ID 2022-05-13 2022-05-13 Outpatient R YRIS WYINDIO [facility] [id number] [facility] 10:20:00 11:09:10 SORAIDA [facility] 2022-05-13 2022-05-13 Urgent Soraida Arndt [facility] 1.2.840.114 [id number] [facility] 10:20:00 11:09:10 Care Unknown, Attending [facility]13.10 [facility] 4.2.7.2.686 Caden as NIRAJ?BLEA [phone] [address] MEDICAL OFFICE BUILDING 2022-05-13 2022-05-13 Orders Doctor CINDY 1.2.840.114 [id number] Univers 00:00:00 00:00:00 Only Unassigned, SHAREE 350.1.13.10 ity of [facility] 4.2.7.2.686 Caden as [phone] [facility] [address] [place] 2022-05-13 2022-05-13 Letter Yris [facility] 1.2.840.114 [id number] Univers 00:00:00 00:00:00 (Out) Rania HEALTH 350.1.13.10 it y of [place] 4.2.7.2.686 Caden as NIRAJ?BLEA [phone] [address] 2021-10-16 2021-10-16 Telephone Debby Jain 1.2.840.114 [id number] Univers 00:00:00 00:00:00 SHAREE 350.1.13.10 it y of HOSPITAL 4.2.7.2.686 Caden as [id number] [address] 2021-10-15 2021-10-15 Laboratory Only, Ang Db Test [facility] 1.2.8 40.114 [id number] Univers 19:45:00 20:00:00 Only Sd Shook HEALTH 350.1.13.10 ity of [place] 4.2.7.2.686 Caden as NIRAJ?BLEA [id number] [address] OFFICE [facility] 2021-10-15 2021-10-15 Outpatient R ARNULFO [facility] [id number] Univers 19:45:00 19:38:02 SD donohuey o f [facility] 2021-10-15 2021-10-15 Letter Only, Ang [facility] 1.2.631.545 [id number] Univers 00:00:00 00:00:00 (Out) Db Test HEALTH 350.1.13.10 it y of [place] 4.2.7.2.686 Caden as NIRAJ?BLEA [phone] [address] OFFICE [facility] 2021-07-31 2021-07-31 Emergency X TOM, [facility] ERT [id number] Univers 12:38:00 15:23:00 SHANNA ity of [facility] 2021-07-31 2021-07-31 Emergency Tom, [facility] 1.2.840.114 [id number] Univers 12:38:00 15:23:00 Shanna HAWKINS 350.1.13.10 i ty of [place] [phone] [place] [address] [place] 2021-07-31 2021-07-31 Orders Doctor CINDY 1.2.840.114 [id number] Univers 00:00:00 00:00:00 Only Unassigned, SHAREE 350.1.13.10 ity of [facility] 4.2.7.2.686 Caden as [id number] [address] 2021-04-04 2021-04-04 Outpatient R MARCELLO [facility] [id number] Univers 16:00:00 17:04:28 RISHABH ity [facility] 2021-04-04 2021-04-04 Laboratory Only, Ang Db Test [facility] 1.2.8 40.114 [id number] Univers 16:00:00 16:15:00 Only Marcello Rishabh HEALTH 350.1.13.10 ity of [place] 4.2.7.2.686 Caden as NIRAJ?BLEA [id number] [address] MEDICAL OFFICE [facility] 2021-04-04 2021-04-04 Orders Doctor CINDY 1.2.840.114 [id number] Univers 00:00:00 00:00:00 Only Unassigned, SHAREE 350.1.13.10 ity of [facility] 4.2.7.2.686 Caden as [id number] [address] 2021-04-04 2021-04-04 Letter Provider, [facility] 1.2.425.965 [id number] Univers 00:00:00 00:00:00 (Out) Ang Db HEALTH 350.1.13.10 it y of Urgent Care [place] 4.2.7.2.686 [place] NIRAJ?BLEA [phone] [address] MEDICAL OFFICE BUILDING 2021-04-042021-04-04 Letter Provider, [facility] 1.2.374.362 [id number] Univers 00:00:00 00:00:00 (Out) Ang HEALTH 350.1.13.10 it y [facility] 4.2.7.2.686 [place] NIRAJ?BLEA [phone] [address] MEDICAL OFFICE [facility] 2021-03-12 2021-03-12 Letter JesseCINDY 1.2.840.114 [id number] Univers 00:00:00 00:00:00 (Out) Liz TOLLIVER 350.1.13.10 it y of HOSPITAL 4.2.7.2.686 Caden as [id number] [address] 2021-03-11 2021-03-11 Out[facility] [id number] Univers 12:00:00 12:18:19 XOCHILT dejesus [facility] 2021-03-11 2021-03-11 [facility] 1.2.840.114 [id number] Univers 11:42:31 12:02:31 Care Xochilt HEALTH 350.1.13.10 it y of [place] 4.2.7.2.686 Caden as NIRAJ?BLEA [id number] [address] OFFICE [facility] 2021-03-11 2021-03-11 Outpatient Lia NORRIS [facility] [id number] Univers 12:00:00 12:00:00 XOCHILT dejesus [facility] 2021-01-07 2021-01-07 Urgent Jr [facility] 1.2.840.114 [id number] Univers 14:59:38 15:39:45 Care Arn[facility]Carissa [facility] 350.1.13.10 ity of [place] 4.2.7.2.686 Caden as Niraj?Blea [phone] [address] Medical Office [facility] 2021-01-07 2021-01-07 Outpatient R ARNULFO [facility] [id number] Univers 15:00:00 15:00:00 DS ying [facility] 2021-01-07 2021-01-07 Letter Provider, [facility] 1.2.550.343 [id number] Univers 00:00:00 00:00:00 (Out) Cristian Saldaña Health 350.1.13.10 it y of Urgent Care [place] 4.2.7.2.686 Juana Healy?Blea [phone] [facility] [address] [place] Medical Office Building 2020-06-19 2020-06-19 Patient Carlos [facility] 1.2.840.114 [id number] Univers 00:00:00 00:00:00 Outreach Bill PRIMARY 350.1.13.10 i ty of [facility] [place].2.[place] [id number] [facility] [address] [place] 2020-04-13 2020-04-13 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 2, [facility] 1.2.840.114 [id number] Univers 16:06:30 16:21:30 Visit Katiana Clifford 350.1.13.10 ity [place] [id number] [facility] 2020-04-13 2020-04-13 Office [facility] 1.2.840.114 [id number] Univers 14:36:28 16:04:23 Visit Katiana Hawkins 350.1.13.10 i ty [place] [phone] [facility] [address] [facility] 2020-04-13 2020-04-13 Outpatient R JACQUELINE [facility] [id number] Univers 14:40:00 14:40:00 KATIANA dejesus [facility] 2020-04-12 2020-04-12 Outpatient R JACQUELINE [facility] [id number] Univers 16:00:00 16:00:00 KATIANA dejesus [facility] 2020-03-09 2020-03-09 Laboratory Lab, [facility] Fam Pob I [facility] 1.2. 840.114 [id number] Univers 16:50:15 17:10:15 Only Amelie Qiu 350.1.13.10 ity of [place] 4.2.7.2.686 Caden as Professio [phone] Pr dical nal [address] [place] Office [address] One 2020-03-09 2020-03-09 Outpatient R ANTOLIN [facility] [id number] Univers 17:00:00 17:00:00 AMELIE dejesus [facility] 2019-12-26 2019-12-26 Laboratory Lab, [facility] Pob I [facility] 1.2. 840.114 [id number] Univers 14:58:01 15:18:01 Only Amelie Qiu Health 350.1.13.10 ity of [place] 4.2.7.2.686 Caden as Professio [phone] Pr [facility] [address] [place] Office [facility] One 2019-12-26 2019-12-26 Outpatient R [facility] [id number] Univers 15:00:00 15:00:00 AMELIE dejesus [facility] 2019-12-26 2019-12-26 Outpatient R [facility] [id number] Univers 13:00:00 13:00:00 AMELIE dejesus [facility] 2019-10-25 2019-10-25 Outpatient R LOLISCORNELIA [facility] [id number] Univers 07:20:00 07:20:00 KATIANA anjelica [facility] 2019-10-10 2019-10-10 Telephone CINDY Qiu 1.2.966.024 [id number] Univers 00:00:00 00:00:00 Amelie TOLLIVER 350.1.13.10 it y of HOSPITAL 4.2.7.2.686 Caden as [id number] [address] 2019-10-09 2019-10-09 Telephone August Teetee CINDY 1.2.840.114 [id number] Univers 00:00:00 00:00:00 SHAREE 350.1.13.10 it y of HOSPITAL 4.2.7.2.686 Caden as [id number] [address] 2019-10-07 2019-10-07 Laboratory Lab, [facility] Fam Pob I [facility] 1.2. 840.114 [id number] Univers 13:22:49 13:42:49 Only Amelie Qiu Health 350.1.13.10 ity of [place] 4.2.7.2.686 Caden as Professio [id number] [address] Office [facility] 2019-10-07 2019-10-07 Outpatient R ANTOLIN [facility] [id number] Univers 13:20:00 13:20:00 AMELIE dejesus [facility] 2019-07-29 2019-07-29 Outpatient R DAVID [facility] [id number] Univers 09:15:00 09:15:00 DANIEL anjelica [facility] 2019-07-29 2019-07-29 Outpatient R LOLISCORNELIA, [facility] [id number] Univers 08:20:00 08:20:00 KATIANA anjelica [facility] 2019-07-28 2019-07-28 Telephone TamarakasiCINDY 1.2.986.181 [id number] Univers 00:00:00 00:00:00 Amelie TOLLIVER 350.1.13.10 it y of [facility] 4.2.7.2.686 Caden as [id number] [address] 2019-07-26 2019-07-26 Urgent Pob1, Acute Care Clinic [facility] 1. 2.840.114 [id number] Univers 15:38:04 15:58:04 Care Katiana Clifford 350.1.13.10 ity dayanna [place] 4.2.7.2.686 Caden as Professio [phone] [address] Office [facility] 2019-07-26 2019-07-26 Outpatient R JACQUELINE [facility] [id number] Univers 07:40:00 07:40:00 KATIANA dejesus [facility] 2019-07-26 2019-07-26 Telemedici [facility] 1.2.840.114 [id number] Univers 07:07:26 07:27:26 ne Visit Katiana Hawkins 350.1.13.10 ity [facility] [place] [id number] [address] 2019-07-26 2019-07-26 Refill [facility] 1.2.840.114 [id number] Univers 00:00:00 00:00:00 Katiana Hawkins 350.1.13.10 i ty of [place] [id number] [address] 2019-07-12 2019-07-12 Telemedici [facility] 1.2.840.114 [id number] Univers 07:46:24 08:06:24 ne Visit Katiana Hawkins 350.1.13.10 ity of [place] [id number] [address] 2019-07-12 2019-07-12 Outpatient R [facility] [id number] Univers 08:00:00 08:00:00 KATIANA charanjitmurali [facility] 2019-06-27 2019-06-27 Outpatient R [facility] [id number] Univers 07:20:00 07:20:00 GERRY dejesus [facility] 2019-06-15 2019-06-15 Refill [facility] 1.2.840.114 [id number] Univers 00:00:00 00:00:00 Katiana [place] 350.1.13.10 i ty of [place] [phone] [address] 2019-06-14 2019-06-14 Office [facility] 1.2.840.114 [id number] Univers 08:02:55 09:13:39 Visit Katiana Hawkins 350.1.13.10 i ty of [place] [id number] [address] 2019-06-14 2019-06-14 Outpatient R [facility] [id number] Univers 08:00:00 08:00:00 KATIANA charanjitmurali [facility] 2019-06-14 2019-06-14 Orders Doctor WHITE 1.2.840.114 [id number] Univers 00:00:00 00:00:00 Only Unassigned, SHAREE 350.1.13.10 ity of [place] [facility] 4.2.7.2.686 Caden as [id number] [address] 2019-06-14 2019-06-14 Letter [facility] 1.2.840.114 [id number] Univers 00:00:00 00:00:00 (Out) Katiana Hawkins 350.1.13.10 i ty [facility] 4.2.7.2.686 [place] [phone] Pr dical nal [facility] [facility] 2018-07-28 2018-07-28 Outpatient R EMILIE [facility] [id number] Univers 09:00:00 09:20:54 ANNI ity o f [facility] 2018-07-08 2018-07-11 Inpatient P ALANNA ROMÁN [facility] JEANINE [id number] Univers 07:06:00 15:22:00 ROMÁN MONDRAGON itmurali [facility] Orders Doctor CINDY 1.2.840.114 [id number] Univers 00:00:00 00:00:00 Only Unassigned, SHAREE 350.1.13.10 ity of [place] [facility] 4.2.7.2.686 Caden as [id number] [address] Results Test Description Test Time Test Comments Results Result Comments Source POCT MOLECULAR FLU 2022-05-13 17:10:19 Test Item Value Reference Range Interpretation Comme nts POCT Molecular FluA (test code = 55373-9) Negative Negative POCT Molecular FluB (test code = 99317-5) Negative Negative Lab Interpretation (test code = 41350-8) Normal [facility] [id number] 18:55:11 Test Item Value Reference Interpretation Comments Range TROPONIN I (test 0.000 ng/mL See_Comment [Automated code = 5521757125) message] The system which generated this result [...] biotin. Lab Interpretation Normal (test code = 21229-1) [facility]AL [id number] 18:51:49 Test Item Value Reference Range Interpretation Comments NT-proBNP (test code 47 pg/mL See_Comment [Autom ated = 9070779825) message] The system which generated this result transmitted reference range : <=125. The reference range was not used to interpret this result as normal/abnormal . MARTHA (test code = MARTHA) Biotin has been reported to cause a negative bias, interpret results relative to patient's use of biotin. Lab Interpretation Normal (test code = 35206-1) [facility] METABOLIC PANEL (61586)2021-07-31 18:25:25 Test Item Value Reference Range Interpretation Comments NA (test code = 141 mmol/L 135-145 8544107570) K (test code = 4.1 mmol/L 3.5-5.0 6729231883) CL (test code = 106 mmol/L 98-108 6779536665) CO2 TOTAL (test code = 22 mmol/L 23-31 L 6098486808) AGAP (test code = 2-16 8950758321) BUN (test code = 10 mg/dL 7-23 9607839218) GLUCOSE (test code = 113 mg/dL 70-110 H 7014349482) CREATININE (test code = 0.58 mg/dL 0.50-1.04 3451737475) TOTAL BILI (test code = 0.7 mg/dL 0.1-1.1 3667955292) CALCIUM (test code = 9.2 mg/dL 8.6-10.6 9824965798) T PROTEIN (test code = 7.9 g/dL 6.3-8.2 3714320881) ALBUMIN (test code = 4.9 g/dL 3.5-5.0 9026002300) ALK PHOS (test code = 82 U/L 34-122 6624996654) ALTv (test code = 16 U/L 1742-6) AST(SGOT) (test code = 23 U/L 13-40 1558058925) eGFR (test code = mL/min/1.73m2 8835573418) MARTHA (test code = MARTHA) Association of [...] tests). Lab Interpretation Abnormal (test code = 59154-8) [facility]2022-[facility]-04 18:25:25 Test Item Value Reference Range Interpretation Comments LIPASE (test code = 1129716455) 36 U/L 0-220 Lab Interpretation (test code = Normal 28013-2) [facility] WITH [id number] 18:22:48 Test Item Value Reference Range Interpretation Comments WBC (test code = See_Comment [Automated 8190-2) message] The sy stem which generated this [...] RDW-SD (test code = 43.4 fL 39.0-49.9 97800-7) RDW-CV (test code = 12.4 % 12.0-15.5 788-0) PLT (test code = See_Comment [Automated 777-3) message] The sy stem which generated this result transmitted reference range : 166 - 358 10*3/ ?L. The reference r inez was not used to interpret this result as normal/abnormal . MPV (test code = 9.5 fL 9.5-12.9 53764-8) NRBC/100 WBC (test See_Comment [Automat ed code = 0870992663) message] The system which generated this result transmitted reference range : 0.0 - 10.0 /100 WBCs. The refer ence range was not u sed to interpret th is result as normal/abnormal . NRBC x10^3 (test code <0.01 See_Comment [Auto mated = 1302652763) message] The s ystem which generated this result transmitted reference range : 10*3/?L. The reference range was not used to interpret this result as normal/abnormal . GRAN MAT (NEUT) % 88.0 % (test code = 770-8) IMM GRAN % (test code 0.30 % = 5844758031) LYMPH % (test code = 8.2 % 736-9) MONO % (test code = 3.2 % 5905-5) EOS % (test code = 0.2 % 713-8) BASO % (test code = 0.1 % 706-2) GRAN MAT x10^3(ANC) 8.46 10*3/uL 1.88-7.09 H (test code = 0728938374) IMM GRAN x10^3 (test 0.03 10*3/uL 0.00-0.06 code = 7782207941) LYMPH x10^3 (test code 0.79 10*3/uL 1.32-3.29 L = 731-0) MONO x10^3 (test code 0.31 10*3/uL 0.33-0.92 L = 742-7) EOS x10^3 (test code = <0.03 0.03-0.39 L 711-2) BASO x10^3 (test code <0.03 0.01-0.07 = 704-7) Lab Interpretation Abnormal (test code = 35529-8) [facility] HospitalPOTN [id number] 17:45:00 Test Item Value Reference Range Interpretation Comments POCT PREG (test code = 1605) Negative On board controls acceptable with Present C Line (test code = 3574) POCT PREG LOT # (test code = 3575) [id number] POCT PREG TEST DATE (test 12/27/2022 code = 3576) Lab Interpretation (test code = Normal 61904-6) [facility] MOLECULAR [id number] 18:14:05 Test Item Value Reference Range Interpretation Comments POCT Molecular FluA (test code = Negative Negative 80301-1) POCT Molecular FluB (test code = Negative Negative 06587-1) Lab Interpretation (test code = Normal 51170-3) [facility]"
[2022-08-22] MEDS ORDERED: LORazepam 2 MG/ML VIAL ONE (11:30)
[2022-08-22] MEDS ORDERED: NA CHLORIDE 0.9% 1,000 ML ONE (11:32)
--- NOTE | 2022-08-22 11:36 | RAD REPORT ---
EXAM DESCRIPTION: CT - Head Brain Wo Cont - 08/22/2022 11:24 am CLINICAL HISTORY: Headache COMPARISON: none TECHNIQUE: Computed axial tomography of the head was obtained. IV contrast was not requested. All CT scans are performed using dose optimization technique as appropriate and may include automated exposure control or mA/KV adjustment according to patient size. FINDINGS: An intracranial bleed is not seen The ventricles are normal in caliber No significant hypodense areas within the brain visualized No extra-axial fluid collection is noted. Fluid within the sinuses/ mastoids is not seen IMPRESSION: No acute intracranial abnormality is seen If patient's symptoms persist MRI of the brain would be recommended
[2022-08-22 12:25] LABS: Absolute Lymphocytes (CBC) 1.2 K/uL (0.7-4.9); Hematocrit 38.9 % (36.0-45.0); Lymphocytes % 13.6 % (15.3-44.8); MCV 95.2 fL (80-100); MPV 7.8 fL (7.6-11.3); RBC Red Blood Cell Count 4.08 M/uL (3.86-4.86)
[2022-08-22 12:30] LABS: Protime INR 1.01
[2022-08-22 12:42] LABS: ALT/SGPT 20 U/L (13-56); AST/SGOT 12 U/L (15-37); Alkaline Phosphatase 67 U/L (45-117); BUN Blood Urea Nitrogen 11 mg/dL (7-18); Bicarbonate 27 mEq/L (21-32); Bilirubin Total 0.3 mg/dL (0.2-1.0); Glomerular Filtration Rate 118 ml/min (=/>90); Glucose Level 97 mg/dL (74-106); Potassium 4.1 mEq/L (3.5-5.1); Protein, Total 7.2 g/dL (6.4-8.2); Sodium Level 136 mEq/L (136-145)
[2022-08-22 12:45] LABS: Specific Gravity 1.007 (1.005-1.030)
[2022-08-22 12:47] LABS: Bilirubin Direct < 0.1 mg/dL (0-0.2); Bilirubin Indirect, Calculated ND mg/dL (0.2-0.8)
[2022-08-22 12:52] LABS: Barbiturates NEGATIVE (NEGATIVE); Benzodiazepines NEGATIVE (NEGATIVE); Cocaine NEGATIVE (NEGATIVE); METHAMPHETAM NEGATIVE (NEGATIVE); Methadone NEGATIVE (NEGATIVE); Opiates NEGATIVE (NEGATIVE); Phencyclidine NEGATIVE (NEGATIVE); THC Cannibis POSITIVE (NEGATIVE)
[2022-08-22] MEDS ORDERED: KETOROLAC 30 MG/ML INJ ONE (13:23)
[2022-08-22] MEDS ORDERED: dexAMETHasone 10 MG/ML VIAL ONE (13:23)
[2022-08-22] MEDS ORDERED: METOCLOPRAMIDE 10 MG/2mL INJ ONE (13:23)
[2022-08-22] MEDS ORDERED: NA CHLORIDE 0.9% 250 ML ONE (13:23)
--- NOTE | 2022-08-22 14:09 | EDPHYS ---
Physician Documentation [facility] Name: Claribel Henley Age: 36 yrs Sex: Female : 1985 Arrival Date: 08/22/2022 Time: 10:08 Bed 17 Private MD: ED Physician Alban Givens HPI: 08/22 10:56 This 36 yrs old Female presents to ER via Ambulatory with complaints of jmm Doesn't Feel Right, hx of seizure. 10:56 Is a 36-year-old female with no known chronic medical conditions presents emerged part [facility] with complaints of headache, feeling "fuzzy headed," "foggy" which was similar to how she felt prior to a seizure which occurred earlier this month. Patient is not currently taking any seizure medication. Patient does not have a history of epilepsy. . 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 - Social history:: Smoking status: Patient denies any tobacco usage or history of. ROS: 10:56 Constitutional: Negative for fever, chills, and weight loss, Cardiovascular: Negative jmm for chest pain, palpitations, and edema, Respiratory: Negative for shortness of breath, cough, wheezing, and pleuritic chest pain. 10:56 Neuro: Positive for headache. 10:56 All other systems are negative. Exam: 10:56 Constitutional: This is a well developed, well nourished patient who is awake, alert, jmm and in no acute distress. Head/Face: atraumatic. Eyes: EOMI, no conjunctival erythema appreciated ENT: Moist Mucus Membranes Neck: Trachea midline, Supple Chest/axilla: Normal chest wall appearance and motion. Cardiovascular: Regular rate and rhythm. No edema appreciated Respiratory: Normal respirations, no respiratory distress appreciated Abdomen/GI: Non distended Back: Normal ROM Skin: General appearance color normal MS/ Extremity: Moves all extremities, no obvious deformities appreciated, no edema noted to the lower extremities Neuro: Awake and alert Psych: Behavior is normal, Mood is normal, Patient is cooperative and pleasant Vital Signs: 10:54 BP 139 / 103; Pulse 75; Resp 17; Temp 98.7; Pulse Ox 100% ; Weight 58.97 kg; Height 5 jl7 ft. 4 in. ; Pain 0/10; 11:54 BP 125 / 83; Pulse 62; Resp 16; Pulse Ox 100% on R/A; db 12:30 BP 116 / 70; Pulse 80; Resp 16; Pulse Ox 100% ; db 13:00 BP 118 / 67; Pulse 71; Resp 16; Pulse Ox 100% ; db 13:30 BP 113 / 81; Pulse 72; Resp 16; Pulse Ox 100% on R/A; db 10:54 Body Mass Index 22.31 (58.97 kg, 162.56 cm) 7 10:54 Pain Scale: Adult jl7 MDM: 10:56 Patient medically screened. [facility] 10:56 Differential diagnosis: intracerebral hemorrhage, meningitis, migraine, subarachnoid jmm bleed, subdural hematoma. Data reviewed: vital signs, nurses notes. ED course: I discussed the patient with Dr. Ramos who will follow up with the patient next week. He did not recommend seizure medication at this time. Patient advised to return to the ED if symptoms worsen. Patient understood and agrees to plan of care.. 08/22 10:57 Order name: Acetaminophen; Complete Time: 12:54 [facility] 08/22 10:57 Order name: Basic Metabolic Panel; Complete Time: 12:54 [facility] 08/22 10:57 Order name: CBC with Diff; Complete Time: 12:38 [facility] 08/22 10:57 Order name: ETOH Level; Complete Time: 12:54 [facility] 08/22 10:57 Order name: Hepatic Function; Complete Time: 12:54 [facility] 08/22 10:57 Order name: PT-INR; Complete Time: 12:38 [facility] 08/22 10:57 Order name: Ptt, Activated; Complete Time: 12:38 [facility] 08/22 10:57 Order name: Urine Drug Screen; Complete Time: 12:54 [facility] 08/22 10:57 Order name: PREGU; Complete Time: 12:54 [facility] 08/22 10:57 Order name: CT Head Brain wo Cont; Complete Time: 11:41 [facility] 08/22 10:57 Order name: EKG; Complete Time: 10:59 [facility] 08/22 10:57 Order name: EKG - Nurse/Tech; Complete Time: 12:27 [facility] 08/22 10:57 Order name: IV Saline Lock; Complete Time: 12:03 [facility] 08/22 10:57 Order name: Labs collected and sent; Complete Time: 12:03 [facility] Administered Medications: 11:55 Drug: NS 0.9% IV 1000 ml Route: IV; Rate: 1 bolus; Site: right antecubital; db 13:15 Follow up: Response: No adverse reaction; IV Status: Completed infusion; IV Intake: db 1000ml 11:56 Drug: Ativan IVP 1 mg Route: IVP; Site: right antecubital; db 14:05 Follow up: Response: No adverse reaction db 13:20 Drug: NS 0.9% IV 250 ml Route: IV; Rate: bolus; Site: right antecubital; db 14:05 Follow up: Response: No adverse reaction; IV Status: Completed infusion; IV Intake: db 250ml 13:20 Drug: metoCLOPramide IVP 10 mg Route: IVP; Site: right antecubital; db 14:05 Follow up: Response: No adverse reaction db 13:20 Drug: Decadron - Dexamethasone IVP 10 mg Route: IVP; Site: right antecubital; db 14:05 Follow up: Response: No adverse reaction db 13:20 Drug: Ketorolac IVP 30 mg Route: IVP; Site: right antecubital; db 14:05 Follow up: Response: No adverse reaction db Disposition Summary: 08/22/22 14:08 Discharge Ordered Location: Home [facility] Condition: Stable [facility] Diagnosis - Headache [facility] Followup: [facility] - With: Wellington Ramos MD - When: 2 - 3 days - Reason: Recheck today's complaints, Continuance of care, Re-evaluation by your physician Discharge Instructions: - Discharge Summary Sheet [facility] - General Headache Without Cause [facility] Forms: - Medication Reconciliation Form [facility] - Thank You Letter [facility] - Antibiotic Education [facility] - Prescription Opioid Use [facility] - Work release form mb9 Prescriptions: - Hydroxyzine HCl 25 mg Oral Tablet - take 1 tablet by ORAL route every 6 hours As needed; 30 tablet; Refills: 0, jmm Product Selection Permitted Signatures: Dispatcher [employer] EDMaciel Magana PA PA jmm Leal Jahala, RN RN jl7 Miley Quan, RN RN db
--- NOTE | 2022-08-22 14:09 | ER ---
Nurse's Notes [facility] Name: Claribel Henley Age: 36 yrs Sex: Female : 1985 Arrival Date: 08/22/2022 Time: 10:08 Bed 17 Private MD: Diagnosis: Headache Presentation: 08/22 10:54 Chief complaint: Patient states: Had a seizure about 2 weeks ago while at work, woke jl7 this morning feeling the same way, foggy, almost like vertigo and like I might pass out. No other hx of seizures. Coronavirus screen: At this time, the client does not indicate any symptoms associated with coronavirus-19. Ebola Screen: No symptoms or risks identified at this time. Initial Sepsis Screen: Does the patient meet any 2 criteria? No. Patient's initial sepsis screen is negative. Does the patient have a suspected source of infection? No. Patient's initial sepsis screen is negative. Risk Assessment: Do you want to hurt yourself or someone else? Patient reports no desire to harm self or others. Onset of symptoms was August 22, 2022. 10:54 Method Of Arrival: Ambulatory [facility] 10:54 Acuity: JUAN DAVID 3 jl7 Triage Assessment: 10:56 General: Appears in no apparent distress. uncomfortable, Behavior is cooperative, jl7 anxious, crying. Pain: Denies pain. 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 - Social history:: Smoking status: Patient denies any tobacco usage or history of. Screenin:26 [facility] ED Fall Risk Assessment (Adult) History of falling in the last 3 months, db including since admission No falls in past 3 months (0 pts) Confusion or Disorientation No (0 pts) Intoxicated or Sedated No (0 pts) Impaired Gait No (0 pts) Mobility Assist Device Used No (0 pt) Altered Elimination No (0 pt) Score/Fall Risk Level 0 - 2 = Low Risk Oriented to surroundings, Maintained a safe environment. Abuse screen: Denies threats or abuse. Denies injuries from another. Nutritional screening: No deficits noted. Tuberculosis screening: No symptoms or risk factors identified. Assessment: 10:58 Reassessment: FAR[address] St in triage assessing pt. jl7 11:19 Reassessment: patient to CT. db 12:00 Reassessment: Patient appears in no apparent distress at this time. Patient and/or db family updated on plan of care and expected duration. Pain level reassessed. Patient is alert, oriented x 3, equal unlabored respirations, skin warm/dry/pink. felt like was going to have a seizure. No seizure today. General: Appears in no apparent distress. comfortable, Behavior is calm, cooperative. Pain: Denies pain. Neuro: Level of Consciousness is awake, alert, obeys commands, Oriented to person, place, time, situation. Respiratory: Airway is patent Respiratory effort is even, unlabored, Respiratory pattern is regular, symmetrical. 12:20 Reassessment: patient ambulatory to restroom. db 13:05 Reassessment: Patient appears in no apparent distress at this time. Patient and/or db family updated on plan of care and expected duration. Pain level reassessed. Patient is alert, oriented x 3, equal unlabored respirations, skin warm/dry/pink. patient complains of a headache. Will notify provider. 14:04 Reassessment: Patient appears in no apparent distress at this time. Patient and/or db family updated on plan of care and expected duration. Pain level reassessed. Patient is alert, oriented x 3, equal unlabored respirations, skin warm/dry/pink. Patient states feeling better. Patient states symptoms have improved. Vital Signs: 10:54 BP 139 / 103; Pulse 75; Resp 17; Temp 98.7; Pulse Ox 100% ; Weight 58.97 kg; Height 5 jl7 ft. 4 in. ; Pain 0/10; 11:54 BP 125 / 83; Pulse 62; Resp 16; Pulse Ox 100% on R/A; db 12:30 BP 116 / 70; Pulse 80; Resp 16; Pulse Ox 100% ; db 13:00 BP 118 / 67; Pulse 71; Resp 16; Pulse Ox 100% ; db 13:30 BP 113 / 81; Pulse 72; Resp 16; Pulse Ox 100% on R/A; db 10:54 Body Mass Index 22.31 (58.97 kg, 162.56 cm) jl7 10:54 Pain Scale: Adult jl7 ED Course: 10:10 Patient arrived in ED. am2 10:31 Maciel Rinaldi PA is [facility]. jmm 10:31 Alban Givens MD is Attending Physician. jmm 10:56 Triage completed. jl7 10:56 Arm band placed on right wrist. jl7 11:13 Miley Quan, RN is Primary Nurse. db 11:25 CT Head Brain wo Cont In Process Unspecified. EDMS 11:55 Inserted saline lock: 20 gauge in right antecubital area, using aseptic technique. db Blood collected. 12:19 Patient has correct armband on for positive identification. Placed in gown. Bed in low mm9 position. Call light in reach. Side rails up X2. Warm blanket given. Client placed on continuous cardiac and pulse oximetry monitoring. NIBP monitoring applied. playground monitor on. Pulse ox on. NIBP on. 12:19 EKG done, by ED staff, reviewed by Maciel IQBAL. mm9 14:08 Wellington Ramos MD is Referral Physician. jmm 14:28 No provider procedures requiring assistance completed. IV discontinued, intact, mb9 bleeding controlled, No redness/swelling at site. Pressure dressing applied. Administered Medications: 11:55 Drug: NS 0.9% IV 1000 ml Route: IV; Rate: 1 bolus; Site: right antecubital; db 13:15 Follow up: Response: No adverse reaction; IV Status: Completed infusion; IV Intake: db 1000ml 11:56 Drug: Ativan IVP 1 mg Route: IVP; Site: right antecubital; db 14:05 Follow up: Response: No adverse reaction db 13:20 Drug: NS 0.9% IV 250 ml Route: IV; Rate: bolus; Site: right antecubital; db 14:05 Follow up: Response: No adverse reaction; IV Status: Completed infusion; IV Intake: db 250ml 13:20 Drug: metoCLOPramide IVP 10 mg Route: IVP; Site: right antecubital; db 14:05 Follow up: Response: No adverse reaction db 13:20 Drug: Decadron - Dexamethasone IVP 10 mg Route: IVP; Site: right antecubital; db 14:05 Follow up: Response: No adverse reaction db 13:20 Drug: Ketorolac IVP 30 mg Route: IVP; Site: right antecubital; db 14:05 Follow up: Response: No adverse reaction db Medication: 12:10 VIS not applicable for this client. db Intake: 13:15 IV: 1000ml; Total: 1000ml. db 14:05 IV: 250ml; Total: 1250ml. db Outcome: 14:08 Discharge ordered by . nadir 14:28 Discharged to home ambulatory. yasmani 14:28 Condition: stable 14:28 Discharge instructions given to patient, Instructed on discharge instructions, follow up and referral plans. Demonstrated understanding of instructions, follow-up care, medications, Prescriptions given X 1. 14:29 Patient left the ED. mb9 Signatures: Dispatcher [employer] EDMS Maciel Rinaldi PA PA jmm Leal, Jahala, RN RN jl7 Xochilt Diaz Danielle, RN RN db Martinez, Maria mm9 Shonna Chirinos, RN RN mb9
[2022-08-22 15:14] VITALS: TEMP 98.7; O2SAT 100
[2022-08-22 15:23] VITALS: BP 113/81
== END 2022-08-22 14:29 | disposition home or self-care (01) ==
LOC: ER 10:08
DX: R51.9 Headache, unspecified (principal); Z98.82 Breast implant status
CPT/HCPCS: 96365; 96361; 85025; 80048; 36415; 81025; 85610; 80076; 85730; 80307; 70450; 96375; 99285; J2765; J1100; J7050; J7030; G0480 ×2; 93005

== ENCOUNTER 2025-01-09 09:22 | Emergency (ER) | payer SELFPAY ==
--- OUTSIDE RECORDS SUMMARY | 2025-01-09 09:30 | XMS REPORT | Continuity of Care Document ---
Author Name Unknown Address [address] [facility] [address] [place] [address] Organization [facility] Address [address] [facility] [address] [place] [address] Care Team Providers Care Well Service Floorperson Name Role Phone Phil Stacy, [facility] [place] Primary Care Physician DANIEL STEPHENSON Attending Clinician Unavailable Cate Rodriguez PA-C Attending Clinician [phone] Timi Nam MD Attending Clinician + [phone] Soraida Quinn Attending Clinician [phone] Unknown, Attending Attending Clinician Yoselin Christine Attending Clinician + [phone] YOSELIN NOEL Attending Clinician UnavailKATIANA Barnett Attending Clinician Unavailable Doctor Unassigned, [place] Attending Clinician Katiana Gan MD Attending Clinician [phone] Pob, [facility] Main Attending Clinician Ashley Soelr Attending Clinician REGIS Toussaint Attending Clinician REGIS Thomson Attending Clinician Regis Thomson MD Attending Clinician + RADIOLOGY Attending Clinician Unavailable DELL BAIRD Attending Clinician Unavaila ble Doctor Unassigned, [place] Attending Clinician U FUNMI UgaldeLEX Willis Attending Clinician Unavailab RITA Mccarty Attending Clinician Unavailable RITA SNOW Attending Clinician Unavailable Jacqueline DUBOSE, Katiana Attending Clinician [phone] CONSTANTINO ZALDIVAR Attending Clinician Unavailable Kali DUBOSE, Andrea Church Attending Clinician [phone] Constantino Zaldivar MD Attending Clinician + [phone] , [facility] Attending Clinician Unavailable SORAIDA ARNDT Attending Clinician Unavailable Ebrahim HADOOP ENGINEER, Rania Attending Clinician [phone] Unknown, Attending Attending Clinician Unavailab jt Jani RN, Debby Grande Attending Clinician Unavailable Only, Ang Db Test Attending Clinician Unavailabl jono Arredondo HADOOP ENGINEER, Sd Attending Clinician [phone] SD ARREDONDO Attending Clinician Unavailabl SHANNA Escalona Attending Clinician Unavailable Tom HADOOP ENGINEER, Shanna Attending Clinician [phone] RISHABH KELLEY Attending Clinician Unavailable Marcello HADOOP ENGINEER, Rishabh Attending Clinician [phone] Provider, [facility] Attending Clinician Unavailable Jesse RUTHERFORD, Liz Sousa Attending Clinician Unavailab XOCHILT Monk Attending Clinician Unavailable Xochilt Norris MD Attending Clinician [phone] Bill Gonzalez DO Attending Clinician [phone] Lab, [facility] Fam Pob I Attending Clinician Unavailab Amelie Hill Attending Clinician [phone] AMELIE QIU Attending Clinician Unavailable Teetee Koch RN Attending Clinician Unavailable DANIEL HERNANDEZ Attending Clinician Unavai kristian Pob1, [facility] Attending Clinician Unav GERRY Church Attending Clinician Unava ilANNI Murray Attending Clinician Unavailab ROMÁN Hurt Attending Clinician UnavailROMÁN Gutierrez Attending Clinician Unavaila CONSTANTINO Massey Admitting Clinician Unavailable Constantino Zaldivar MD Admitting Clinician [phone] SHANNA SANTOS Admitting Clinician Unavailable ROMÁN MONDRAGON Admitting Clinician Unavailestephania ble Payers Payer Name Policy Type Policy Number Effective Date Expirati on Date Source [facility] [id number] 2020 00:00:00 Problems Condition Name Condition Details Condition Category Status Onset Date Resolution Date Last Treatment Date Treating Clinician Comments Source Other iron deficiency anemia Other iron deficiency anemia Disease Active 8 00:00: 00 [facility] Malaise and fatigue Malaise and fatigue Disease Active 11-24 00:00: 00 [facility] Prediabete s Prediabete s Disease Active 11-24 00:00: 00 [facility] Social alcohol use Social alcohol use Disease Active 11-24 00:00: 00 [facility] Gastroesop hageal reflux disease with esophagiti s without hemorrhage Gastroesop hageal reflux disease with esophagiti s without hemorrhage Disease Active 11-24 00:00: 00 [facility] Seizure Seizure Disease Active 2022-03 0-29 00:00: 00 [facility] Panic attack Panic attack Disease Active 6 00:00: 00 [facility] Bilateral flank pain Bilateral flank pain Disease Active 6 00:00: 00 [facility] Need for vaccinatio n with 13-polyval ent pneumococc al conjugate vaccine Need for vaccinatio n with 13-polyval ent pneumococc al conjugate vaccine Disease Active 04-17 00:00: 00 [facility] Need for vaccinatio n with 13-polyval ent pneumococc al conjugate vaccine Need for vaccinatio n with 13-polyval ent pneumococc al conjugate vaccine Disease Active 04-17 00:00: 00 [facility] ADHD (attention deficit hyperactiv ity disorder), combined type ADHD (attention deficit hyperactiv ity disorder), combined type Disease Active 04-13 00:00: 00 [facility] Anxiety, generalize d Anxiety, generalize d Disease Active 04-13 00:00: 00 [facility] Stress at home Stress at home Disease Active -15 00:00: 00 [facility] Current mild episode of major depressive disorder, unspecifie d whether recurrent Current mild episode of major depressive disorder, unspecifie d whether recurrent Disease Active 15 00:00: 00 [facility] Adjustment insomnia Adjustment insomnia Disease Active 04-13 00:00: 00 [facility] Bronchitis Bronchitis Disease Active 0 07-25 00:00: 00 [facility] Nose congestion Nose congestion Disease Active 07-25 00:00: 00 [facility] Exposure to SARS-assoc iated coronaviru s Exposure to SARS-assoc iated coronaviru s Disease Active 07-25 00:00: 00 [facility] Acute bacterial pharyngiti s Acute bacterial pharyngiti s Disease Active 0 17 00:00: 00 [facility] Sore throat Sore throat Disease Active 0 17 00:00: 00 [facility] Nicotine dependence with current use Nicotine dependence with current use Disease Active 17 00:00: 00 [facility] Cough Cough Disease Active 0 17 00:00: 00 [facility] Status post tubal ligation Status post tubal ligation Disease Active 07-09 00:00: 00 [facility] History of seizure History of seizure Disease Active 07-09 00:00: 00 [facility] Shoulder dystocia during labor and delivery Shoulder dystocia during labor and delivery Disease Active 07-09 00:00: 00 [facility] History of seizure History of seizure Disease Active 07-09 00:00: 00 [facility] H/O maternal cardiomyop athy, currently , third trimester H/O maternal cardiomyop athy, currently , third trimester Disease Active 24 00:00: 00 [facility] History of echocardio gram History of echocardio gram Disease Active 2017-03 00:00: 00 Overview: Formattin g of this note might be different from the original. See results from 11/2017 in chart review [facility] Cervical Papanicola ou smear negative within last 12 months Cervical Papanicola ou smear negative within last 12 months Disease Active 2017-03 00:00: 00 Overview: Formattin g of this note might be different from the original. 11/2017 neg pap and neg hpv see scanned records [facility] cardiomyop athy cardiomyop athy Disease Active 2017-03 0 00:00: 00 Overview: Formattin g of this note might be different from the original. Reported with 2008 11/2017 normal echo, see scanned records [facility] (spontaneo us vaginal delivery) (spontaneo us vaginal delivery) Disease Resolve d 2019-0 4-12 00:00: 00 2018-07-28 00:00:00 2018-07-28 09:16:37 [facility] Single live Single live Disease Resolve d 2018-0 4-12 00:00: 00 2018-07-28 00:00:00 2018-07-28 09:16:48 [facility] Single live Single live Disease Resolve d 2018-0 4-12 00:00: 00 2018-07-28 00:00:00 2018-07-28 09:16:48 [facility] 39 weeks gestation of 39 weeks gestation of Disease Resolve d 2018-0 4-11 00:00: 00 2018-07-28 00:00:00 2018-07-28 09:16:45 [facility] Decreased movement affecting management of in third trimester, single or unspecifie d fetus Decreased movement affecting management of in third trimester, single or unspecifie d fetus Disease Resolve d 2018-0 3-07 00:00: 00 2018-07-28 00:00:00 2018-07-28 09:17:12 [facility] Nausea and vomiting in adult Nausea and vomiting in adult Disease Active 2018-0 2-21 00:00: 00 2018-07-28 00:00:00 2018-07-28 09:17:05 [facility] Anemia of mother in , antepartum Anemia of mother in , antepartum Disease Resolve d 04-23 00:00: 2018-07-28 00:00:00 2018-07-28 09:16:42 [facility] Abnormal maternal glucose tolerance, antepartum Abnormal maternal glucose tolerance, antepartum Disease Resolve d 04-23 00:00: 00 2018-07-28 00:00:00 2018-07-28 09:16:58 [facility] Multiparit y Multiparit y Disease Resolve d 2017-03 00:00: 00 2018-07-28 00:00:00 2018-07-28 09:16:39 [facility] Supervisio n of high-risk Supervisio n of high-risk Disease Resolve d 2017-03 00:00: 00 2018-07-28 00:00:00 2018-07-28 09:16:55 [facility] H/O maternal cardiomyop athy, currently , second trimester H/O maternal cardiomyop athy, currently , second trimester Disease Resolve d 2017-03 00:00: 00 2018-05-06 00:00:00 2018-05-06 08:16:45 [facility] Well woman exam (no gynecologi gloria exam) Well woman exam (no gynecologi gloria exam) Disease Resolve d 06-10 00:00: 00 2018-01-25 00:00:00 2018-01-25 09:36:30 [facility] Screen for STD (sexually transmitte d disease) Screen for STD (sexually transmitte d disease) Disease Resolve d 06-05 00:00: 00 2016-06-10 00:00:00 2016-06-10 09:54:15 [facility] Dysmenorrh ea Dysmenorrh ea Disease Resolve d 06-05 00:00: 00 2016-06-10 00:00:00 2016-06-10 09:54:09 [facility] Allergies, Adverse Reactions, Alerts Allergy Name Allergy Type Status Severity Reaction(s) Onset Date Inactive Date Treating Clinician Comments Source NO KNOWN ALLERGIE S Drug Class Active [facility] Social History Social Habit Start Date Stop Date Quantity Comments Source ASSERTION Not [facility] Sexual orientation U niversity [facility] Alcoholic beverage intake 2023-11-25 00:00:00 2023-11-25 00:00:00 0 /d [facility] History of Social function 2023-11-25 00:00:00 2023-11-25 00:00:00 [facility] Alcohol intake 2023-01-25 00:00:00 2023-01-25 00:00:00 0 /d [facility] Tobacco use and exposure 2022-09-03 00:00:00 2022-09-03 00:00:00 Smokeless tobacco non-user [facility] Tobacco Comment 2022-09-03 00:00:00 2022-09-03 00:00:00 d/c as soon as she found out about [facility] Exposure to SARS-CoV-2 (event) 2022-05-03 00:00:00 2022-05-13 10:37:00 Not sure [facility] History of tobacco use 2017-12-01 00:00:00 Cigarette Smoker [facility] Sex assigned at 1985 00:00:00 1985 00:00:00 [facility] Smoking Status Start Date Stop Date Source Tobacco smoking consumption unknown [facility] Occasional tobacco smoker 2022-09-03 00:00:00 [facility] Medications Ordered Medication Name Filled Medication Name Start Date Stop Date Current Medication? Ordering Clinician Indication Dosage Frequency Signature (SIG) Comments Components Source clindamycin 300 mg capsule 12-20 00:00: 00 12-28 04:59 :00 Yes [id number] 300mg Take 1 capsule by mouth in the morning and 1 capsule at noon and 1 capsule in the evening. Do all this for 7 days. [facility] levetiracet am (KEPPRA ORAL) 10-26 12:27: 37 Yes Take by mouth. [facility] levETIRAcet am (KEPPRA) 500 mg tablet 10-26 00:00: 00 11-26 04:59 :00 Yes [id number] 500mg Take 1 tablet by mouth in the morning and 1 tablet in the evening. Do all this for 30 days. [facility] ketoconazol e 2 % cream 10-26 00:00: 00 11-10 04:59 :00 Yes [id number] Apply to area(s) daily for 14 days. [facility] cephALEXin 500 mg capsule 10-26 00:00: 00 11-06 04:59 :00 Yes [id number] 500mg Take 1 capsule by mouth 4 times daily for 10 days. [facility] fluconazole (DIFLUCAN) 150 mg tablet 10-26 00:00: 00 11-03 04:59 :00 Yes [id number] 150mg Take 1 tablet by mouth every 72 hours for 3 doses. [facility] clotrimazol e-betametha sone cream 15 00:00: 00 04-24 05:59 :00 No [id number] Apply to area(s) 2 (two) times daily for 10 days. [facility] levetiracet am 250 mg tablet 04-06 00:00: 00 Yes 1mg [facility] levetiracet am 500 mg tablet 04-06 00:00: 00 Yes 1mg [facility] Spritam 250 mg tablet for oral suspension 2023-03 00:00: 00 Yes 1mg [facility] levETIRAcet am (KEPPRA) 500 mg tablet 11-26 00:00: 00 02-25 05:59 :00 No [id number] 500mg Take 1 tablet by mouth in the morning and 1 tablet in the evening. Do all this for 90 days. [facility] LORazepam (ATIVAN) tablet 0.5 mg 11-22 18:45: 00 11-22 19:03 :00 No .5mg 0.5 mg, Oral, ONCE, 1 dose, On Thu11/23/23 at 1345, [facility] levETIRAcet am (KEPPRA) 500 mg tablet 11-22 00:00: 00 11-26 00:00 :00 No [id number] 500mg Take 1 tablet by mouth in the morning and 1 tablet in the evening. [facility] TAKE 1 TABLET TWICE DAILY. 2022-03 00:00: 00 Yes 500 [facility] TAKE 1 TABLET TWICE DAILY. 2022-03 00:00: 00 05-22 00:00 :00 No 500 [facility] levETIRAcet am (KEPPRA) tablet 500 mg 2022-03 13:00: 00 Yes 500mg 500 mg, Oral, BID, First dose on 01/26/23 at 0800, Until Discontinu ed, Routine [facility] TAKE 1 TABLET BY MOUTH EVERY MORNING AND 1 TABLET BY MOUTH EVERY EVENING 2022-03 00:00: 00 05-22 00:00 :00 No [facility] levETIRAcet am 500 mg tablet 2022-03 00:00: 00 02-26 05:59 :00 No [id number] 500mg Take 1 tablet by mouth in the morning and 1 tablet in the evening. Do all this for 30 days. [facility] enoxaparin (LOVENOX) injection 40 mg 2022-03 22:00: 00 Yes 40mg 40 mg, Subcutaneo us, DAILY, First dose on 01/25/23 at 1700, Until Discontinu ed, Routine [facility] levETIRAcet am (KEPPRA) in NACL (ISO-OS) 1,000 mg/100 mL RTU 2022-03 21:30: 00 01-25 21:27 :00 No 1000mg 1,000 mg, IV Piggyback, ONCE, 1 dose, On 01/25/23 at 1630, Administer over 15 Minutes, 100 mL [facility] NaCl 0.9% (NS) IV infusion 1,000 mL 2022-03 20:45: 00 Yes 1000mL at 150 mL/hr, IV Infusion, CONTINUOUS , Starting on 01/25/23 at 1545, Until Discontinu ed, Routine [facility] LORazepam (ATIVAN) injection 2 mg 2022-03 20:38: 46 Yes 2mg 2 mg, Slow IV Push, Q4HPRN, Starting on Thu01/25/23 at 1538, Until Discontinu ed, Routine, Seizures [facility] ondansetron (ZOFRAN (PF)) injection 4 mg 2022-03 20:37: 46 Yes 4mg 4 mg, Slow IV Push, Q6HPRN, Starting on Thu01/25/23 at 1537, Until Discontinu ed, Routine, Nausea and Vomiting (N/V) [facility] HYDROcodone -acetaminop hen (NORCO 5) 5-325 mg tablet 1 tablet 2022-03 20:37: 41 01-27 20:36 :41 No 1{tbl} 1 tablet, Oral, Q6HPRN, Starting on Thu01/25/23 at 1537, Until Tu01/27/23 at 1536, Routine, Pain (scale 4-6) [facility] acetaminoph en (TYLENOL) tablet 650 mg 2022-03 20:37: 39 Yes 650mg 650 mg, Oral, Q6HPRN, Starting on Thu01/25/23 at 1537, Until Discontinu ed, Routine, Pain (scale 1-3) [facility] aspirin chewable tablet 81 mg 2022-03 17:30: 00 01-25 16:34 :00 No 81mg 81 mg, Oral, ONCE, 1 dose, On Thu01/25/23 at 1230, Routine [facility] NaCl 0.9% (NS) bolus infusion 1,000 mL 2022-03 14:00: 00 01-25 15:06 :00 No 1000mL at 999 mL/hr, 1,000 mL, IV Infusion, ONCE, 1 dose, On Thu01/25/23 at 0900, [facility] TAKE 1 CAPSULE BY MOUTH EVERY MORNING 09-04 00:00: 00 05-22 00:00 :00 No [facility] amphetamine -dextroamph etamine (ADDERALL XR) 5 mg 24 hr capsule 09-04 00:00: 01-26 00:00 :00 No [id number] 5mg Take 1 capsule by mouth every morning. [facility] traZODone 50 mg tablet 09-03 00:00: 00 11-24 00:00 :00 No [id number] 50mg Take 1 tablet by mouth at bedtime. [facility] buPROPion 75 mg tablet 09-03 00:00: 00 11-24 00:00 :00 No [id number] 75mg Take 1 tablet by mouth in the morning and 1 tablet in the evening. [facility] TAKE 1 TABLET BY MOUTH IN THE MORNING AND IN THE EVENING 09-03 00:00: 00 05-22 00:00 :00 [facility] TAKE 1 TABLET BY MOUTH IN THE MORNING AND IN THE EVENING 09-03 00:00: 00 05-22 00:00 :00 [facility] FOLLOW PACKAGE DIRECTIONS 09-03 00:00: 00 05-22 00:00 :00 [facility] INHALE 2 PUFFS BY MOUTH EVERY 6 HOURS NEEDED WHEEZING OR SHORTNESS OF BREATH 09-03 00:00: 00 05-22 00:00 :00 [facility] TAKE 1 TABLET BY MOUTH AT BEDTIME 09-03 00:00: 00 05-22 00:00 :00 [facility] methylPREDN ISolone (MEDROL, YEIM,) 4 mg tablets 09-03 00:00: 00 01-26 00:00 :00 No [id number] Take by mouth SEE-INSTRU CTIONS. follow package directions [facility] amoxicillin -clavulanat e (AUGMENTIN) 875-125 mg per tablet 09-03 00:00: 00 01-26 00:00 :00 No [id number] 1{tbl} Take 1 tablet by mouth in the morning and 1 tablet in the evening. [facility] albuterol 90 mcg/actuati on inhaler 09-03 00:00: 01-26 00:00 :00 No [id number] 2{puff} Inhale 2 Puffs every 6 (six) hours as needed for Wheezing or Shortness of Breath. [facility] TAKE 1 TABLET BY MOUTH EVERY 6 HOURS NEEDED 08-22 00:00: 00 05-22 00:00 :00 No [facility] NITROFURANT OIN MONO/MAC 100MG 08-05 00:00: 05-22 00:00 :00 [facility] TAKE 1 TABLET BY MOUTH EVERY MORNING AND EVERY EVENING. DO ALL THIS FOR 10 DAYS 05-13 00:00: 00 05-22 00:00 :00 [facility] amoxicillin 875 mg tablet 05-13 00:00: 00 05-24 05:59 :00 No [id number] 875mg Take 1 tablet by mouth in the morning and 1 tablet in the evening. Do all this for 10 days. [facility] ondansetron (ZOFRAN (PF)) injection 8 mg 07-31 18:45: 00 07-31 17:55 :00 No 8mg 8 mg, Slow IV Push, ONCE, 1 dose, On Thu07/31/21 at 1345, [facility] NaCl 0.9% (NS) bolus infusion 1,000 mL 07-31 18:45: 00 07-31 20:16 :00 No 1000mL at 999 mL/hr, 1,000 mL, IV Infusion, ONCE, 1 dose, On Thu07/31/21 at 1345, [facility] dicyclomine 20 mg tablet 07-31 00:00: 00 09-03 00:00 :00 No [id number] 20mg Take 1 tablet by mouth 4 (four) times daily as needed for Abdominal pain. [facility] ondansetron 4 mg disintegrat ing tablet 07-31 00:00: 00 09-03 00:00 :00 No [id number] 4mg Take 1 tablet by mouth every 8 (eight) hours as needed for Nausea and Vomiting (N/V). [facility] ondansetron 4 mg disintegrat ing tablet 2020-03 2-13 00:00: 00 09-03 00:00 :00 No [id number] 4mg Take 1 tablet by mouth every 8 (eight) hours as needed for Nausea and Vomiting (N/V). [facility] ondansetron 4 mg disintegrat ing tablet 2020-03 0-11 00:00: 00 03-11 00:00 :00 No [id number] 4mg Take 1 tablet by mouth every 8 (eight) hours as needed for Nausea and Vomiting (N/V). [facility] amphetamine -dextroamph etamine (ADDERALL XR) 5 mg 24 hr capsule 04-13 00:00: 00 09-04 00:00 :00 No [id number] 5mg Take 1 capsule by mouth every morning. [facility] FLUoxetine 10 mg capsule 04-13 00:00: 00 09-03 00:00 :00 No [id number] 10mg Take 1 capsule by mouth daily. [facility] traZODone 50 mg tablet 04-13 00:00: 00 09-03 00:00 :00 No [id number] 50mg Take 1 tablet by mouth at bedtime. [facility] Immunizations Ordered Immunization Name Filled Immunization Name Date Status Comments Source Prevnar 20 Prevnar 20 2022-09-03 00:00:00 Completed [facility] Pneumococcal 20 Conjugate, PCV20 (Prevnar 20) 2022-09-03 00:00:00 Completed [facility] Pneumococcal 20 Conjugate, PCV20 (Prevnar 20) 2022-09-03 00:00:00 Completed [facility] Pneumococcal 20 Conjugate, PCV20 (Prevnar 20) 2022-09-03 00:00:00 Completed [facility] Pneumococcal 20 Conjugate, PCV20 (Prevnar 20) 2022-09-03 00:00:00 Completed [facility] Pneumococcal 20 Conjugate, PCV20 (Prevnar 20) 2022-09-03 00:00:00 Completed [facility] Pneumococcal 20 Conjugate, PCV20 (Prevnar 20) 2022-09-03 00:00:00 Completed [facility] Pneumococcal conjugate P Pneumococcal conjugate P 2020-04-13 00:00:00 Completed [facility] Pneumococcal 13 Conjugate, PCV13 (Prevnar 13) 2020-04-13 00:00:00 Completed [facility] Pneumococcal 13 Conjugate, PCV13 (Prevnar 13) 2020-04-13 00:00:00 Completed [facility] Pneumococcal 13 Conjugate, PCV13 (Prevnar 13) 2020-04-13 00:00:00 Completed [facility] Pneumococcal 13 Conjugate, PCV13 (Prevnar 13) 2020-04-13 00:00:00 Completed [facility] Pneumococcal 13 Conjugate, PCV13 (Prevnar 13) 2020-04-13 00:00:00 Completed [facility] Pneumococcal 13 Conjugate, PCV13 (Prevnar 13) 2020-04-13 00:00:00 Completed [facility] Pneumococcal 13 Conjugate, PCV13 (Prevnar 13) 2020-04-13 00:00:00 Completed [facility] Pneumococcal 13 Conjugate, PCV13 (Prevnar 13) 2020-04-13 00:00:00 Completed [facility] Pneumococcal 13 Conjugate, PCV13 (Prevnar 13) 2020-04-13 00:00:00 Completed [facility] Pneumococcal 13 Conjugate, PCV13 (Prevnar 13) 2020-04-13 00:00:00 Completed [facility] Pneumococcal 13 Conjugate, PCV13 (Prevnar 13) 2020-04-13 00:00:00 Completed [facility] Pneumococcal 13 Conjugate, PCV13 (Prevnar 13) 2020-04-13 00:00:00 Completed [facility] Pneumococcal 13 Conjugate, PCV13 (Prevnar 13) 2020-04-13 00:00:00 Completed [facility] Pneumococcal 13 Conjugate, PCV13 (Prevnar 13) 2020-04-13 00:00:00 Completed [facility] Pneumococcal 13 Conjugate, PCV13 (Prevnar 13) 2020-04-13 00:00:00 Completed [facility] Pneumococcal 13 Conjugate, PCV13 (Prevnar 13) 2020-04-13 00:00:00 Completed [facility] Pneumococcal 13 Conjugate, PCV13 (Prevnar 13) 2020-04-13 00:00:00 Completed [facility] Pneumococcal 13 Conjugate, PCV13 (Prevnar 13) 2020-04-13 00:00:00 Completed [facility] Pneumococcal 13 Conjugate, PCV13 (Prevnar 13) 2020-04-13 00:00:00 Completed [facility] Pneumococcal 13 Conjugate, PCV13 (Prevnar 13) 2020-04-13 00:00:00 Completed [facility] Pneumococcal 13 Conjugate, PCV13 (Prevnar 13) 2020-04-13 00:00:00 Completed [facility] TDAP 2018-04-22 00:00:00 Completed [facility] TDAP 2018-04-22 00:00:00 Completed [facility] TDAP 2018-04-22 00:00:00 Completed [facility] TDAP 2018-04-22 00:00:00 Completed [facility] TDAP 2018-04-22 00:00:00 Completed [facility] TDAP 2018-04-22 00:00:00 Completed [facility] TDAP 2018-04-22 00:00:00 Completed [facility] TDAP 2018-04-22 00:00:00 Completed [facility] TDAP 2018-04-22 00:00:00 Completed [facility] TDAP 2018-04-22 00:00:00 Completed [facility] TDAP 2018-04-22 00:00:00 Completed [facility] TDAP 2018-04-22 00:00:00 Completed [facility] TDAP 2018-04-22 00:00:00 Completed [facility] TDAP 2018-04-22 00:00:00 Completed [facility] TDAP 2018-04-22 00:00:00 Completed [facility] TDAP 2018-04-22 00:00:00 Completed [facility] TDAP 2018-04-22 00:00:00 Completed [facility] TDAP 2018-04-22 00:00:00 Completed [facility] TDAP 2018-04-22 00:00:00 Completed [facility] TDAP 2018-04-22 00:00:00 Completed [facility] TDAP 2018-04-22 00:00:00 Completed [facility] Influenza Virus Vaccine - Whole 2018-01-19 00:00:00 Completed [facility] Influenza Virus Vaccine - Whole 2018-01-19 00:00:00 Completed [facility] Influenza Virus Vaccine - Whole 2018-01-19 00:00:00 Completed [facility] Influenza Virus Vaccine - Whole 2018-01-19 00:00:00 Completed [facility] Influenza Virus Vaccine - Whole 2018-01-19 00:00:00 Completed [facility] Influenza Virus Vaccine - Whole 2018-01-19 00:00:00 Completed [facility] Influenza Virus Vaccine - Whole 2018-01-19 00:00:00 Completed [facility] Influenza Virus Vaccine - Whole 2018-01-19 00:00:00 Completed [facility] Influenza Virus Vaccine - Whole 2018-01-19 00:00:00 Completed [facility] Influenza Virus Vaccine - Whole 2018-01-19 00:00:00 Completed [facility] Influenza Virus Vaccine - Whole 2018-01-19 00:00:00 Completed [facility] Influenza Virus Vaccine - Whole 2018-01-19 00:00:00 Completed [facility] Influenza Virus Vaccine - Whole 2018-01-19 00:00:00 Completed [facility] Influenza Virus Vaccine - Whole 2018-01-19 00:00:00 Completed [facility] Influenza Virus Vaccine - Whole 2018-01-19 00:00:00 Completed [facility] Influenza Virus Vaccine - Whole 2018-01-19 00:00:00 Completed [facility] Influenza Virus Vaccine - Whole 2018-01-19 00:00:00 Completed [facility] Influenza Virus Vaccine - Whole 2018-01-19 00:00:00 Completed [facility] Influenza Virus Vaccine - Whole 2018-01-19 00:00:00 Completed [facility] Influenza Virus Vaccine - Whole 2018-01-19 00:00:00 Completed [facility] Influenza Virus Vaccine - Whole 2018-01-19 00:00:00 Completed [facility] Influenza Virus Vaccine - Whole Unknown Completed [facility] TDAP Unknown Completed [facility] Pneumococcal 13 Conjugate, PCV13 (Prevnar 13) Unknown Completed [facility] Pneumococcal 20 Conjugate, PCV20 (Prevnar 20) Unknown Completed [facility] Influenza Virus Vaccine - Whole Unknown Completed [facility] TDAP Unknown Completed [facility] Pneumococcal 13 Conjugate, PCV13 (Prevnar 13) Unknown Completed [facility] Pneumococcal 20 Conjugate, PCV20 (Prevnar 20) Unknown Completed [facility] Influenza Virus Vaccine - Whole Unknown Completed [facility] TDAP Unknown Completed [facility] Pneumococcal 13 Conjugate, PCV13 (Prevnar 13) Unknown Completed [facility] Pneumococcal 20 Conjugate, PCV20 (Prevnar 20) Unknown Completed [facility] Influenza Virus Vaccine - Whole Unknown Completed [facility] TDAP Unknown Completed [facility] Pneumococcal 13 Conjugate, PCV13 (Prevnar 13) Unknown Completed [facility] Pneumococcal 20 Conjugate, PCV20 (Prevnar 20) Unknown Completed [facility] Influenza Virus Vaccine - Whole Unknown Completed [facility] TDAP Unknown Completed [facility] Pneumococcal 13 Conjugate, PCV13 (Prevnar 13) Unknown Completed [facility] Pneumococcal 20 Conjugate, PCV20 (Prevnar 20) Unknown Completed [facility] Influenza Virus Vaccine - Whole Unknown Completed [facility] TDAP Unknown Completed [facility] Pneumococcal 13 Conjugate, PCV13 (Prevnar 13) Unknown Completed [facility] Pneumococcal 20 Conjugate, PCV20 (Prevnar 20) Unknown Completed [facility] Influenza Virus Vaccine - Whole Unknown Completed [facility] TDAP Unknown Completed [facility] Pneumococcal 13 Conjugate, PCV13 (Prevnar 13) Unknown Completed [facility] Pneumococcal 20 Conjugate, PCV20 (Prevnar 20) Unknown Completed [facility] Influenza Virus Vaccine - Whole Unknown Completed [facility] TDAP Unknown Completed [facility] Pneumococcal 13 Conjugate, PCV13 (Prevnar 13) Unknown Completed [facility] Pneumococcal 20 Conjugate, PCV20 (Prevnar 20) Unknown Completed [facility] Influenza Virus Vaccine - Whole Unknown Completed [facility] TDAP Unknown Completed [facility] Pneumococcal 13 Conjugate, PCV13 (Prevnar 13) Unknown Completed [facility] Pneumococcal 20 Conjugate, PCV20 (Prevnar 20) Unknown Completed [facility] Influenza Virus Vaccine - Whole Unknown Completed [facility] TDAP Unknown Completed [facility] Pneumococcal 13 Conjugate, PCV13 (Prevnar 13) Unknown Completed [facility] Pneumococcal 20 Conjugate, PCV20 (Prevnar 20) Unknown Completed [facility] Vital Signs Vital Name Observation Time Observation Value Comments Lucille de jesus Systolic blood pressure 2024-12-20 20:43:00 132 mm[Hg] [facility] Diastolic blood pressure 2024-12-20 20:43:00 71 mm[Hg] [facility] Heart rate 2024-12-20 20:43:00 66 /min [facility] Body temperature 2024-12-20 20:43:00 37 Luz Marina [facility] Respiratory rate 2024-12-20 20:43:00 16 /min [facility] Body height 2024-12-20 20:43:00 162.6 cm [facility] Body weight 2024-12-20 20:43:00 72.485 kg [facility] BMI 2024-12-20 20:43:00 27.43 kg/m2 [facility] Oxygen saturation in Arterial blood by Pulse oximetry 2024-12-20 20:43:00 98 /min [facility] Systolic blood pressure 2024-10-26 17:24:00 134 mm[Hg] [facility] Diastolic blood pressure 2024-10-26 17:24:00 86 mm[Hg] [facility] Heart rate 2024-10-26 17:24:00 60 [facility] 2024-10-26 17:24:00 36.72 Luz Marina [facility] Respiratory rate 2024-10-26 17:24:00 18 /min [facility] Body weight 2024-10-26 17:24:00 73.256 kg [facility] BMI 2024-10-26 17:24:00 27.72 kg/m2 [facility] Oxygen saturation in Arterial blood by Pulse oximetry 2024-10-26 17:24:00 98 /min [facility] Systolic blood pressure 2024-04-13 21:06:00 137 mm[Hg] [facility] Diastolic blood pressure 2024-04-13 21:06:00 86 mm[Hg] [facility] Heart rate 2024-04-13 21:06:00 71 /min Unive [facility] Body temperature 2024-04-13 21:06:00 36.72 Luz Marina [facility] Respiratory rate 2024-04-13 21:06:00 18 /min [facility] Body weight 2024-04-13 21:06:00 71.079 kg [facility] BMI 2024-04-13 21:06:00 26.90 kg/m2 [facility] Oxygen saturation in Arterial blood by Pulse oximetry 2024-04-13 21:06:00 98 /min [facility] Systolic blood pressure 2023-11-25 15:55:00 129 mm[Hg] [facility] Diastolic blood pressure 2023-11-25 15:55:00 86 mm[Hg] [facility] Heart rate 2023-11-25 15:55:00 66 /min Unive [facility] Body temperature 2023-11-25 15:55:00 36.39 Luz Marina [facility] Respiratory rate 2023-11-25 15:55:00 18 /min [facility] Body height 2023-11-25 15:55:00 162.6 cm [facility] Body weight 2023-11-25 15:55:00 69.4 kg [facility] BMI 2023-11-25 15:55:00 26.26 kg/m2 [facility] Oxygen saturation in Arterial blood by Pulse oximetry 2023-11-25 15:55:00 98 /min [facility] Systolic blood pressure 2023 21:00:00 123 mm[Hg] [facility] Diastolic blood pressure 2023 21:00:00 93 mm[Hg] [facility] Heart rate 2023 21:00:00 59 /min Unive [facility] Respiratory rate 2023 21:00:00 12 /min [facility] Oxygen saturation in Arterial blood by Pulse oximetry 2023 21:00:00 97 /min [facility] Body temperature 2023 17:54:00 37.11 Luz Marina [facility] Body height 2023 17:54:00 162.6 cm [facility] Body weight 2023 17:54:00 63.504 kg [facility] BMI 2023 17:54:00 24.03 kg/m2 [facility] Systolic blood pressure 2023-01-26 12:16:00 111 mm[Hg] [facility] Diastolic blood pressure 2023-01-26 12:16:00 71 mm[Hg] [facility] Heart rate 2023-01-26 12:16:00 57 /min Unive [facility] Body temperature 2023-01-26 12:16:00 36.67 Luz Marina [facility] Respiratory rate 2023-01-26 12:16:00 18 /min [facility] Oxygen saturation in Arterial blood by Pulse oximetry 2023-01-26 12:16:00 99 /min [facility] Body height 2023-01-25 20:38:00 162.6 cm [facility] Body weight 2023-01-25 20:38:00 61.236 kg [facility] BMI 2023-01-25 20:38:00 23.17 kg/m2 [facility] Systolic blood pressure 2022-09-03 17:59:00 102 mm[Hg] [facility] Diastolic blood pressure 2022-09-03 17:59:00 74 mm[Hg] [facility] Heart rate 2022-09-03 17:59:00 82 /min Unive [facility] Body temperature 2022-09-03 17:59:00 36.72 Luz Marina [facility] Respiratory rate 2022-09-03 17:59:00 18 /min [facility] Body height 2022-09-03 17:59:00 162.6 cm [facility] Body weight 2022-09-03 17:59:00 62.687 kg [facility] BMI 2022-09-03 17:59:00 23.72 kg/m2 [facility] Oxygen saturation in Arterial blood by Pulse oximetry 2022-09-03 17:59:00 95 /min [facility] Systolic blood pressure 2022-05-13 16:50:00 108 mm[Hg] [facility] Diastolic blood pressure 2022-05-13 16:50:00 76 mm[Hg] [facility] Heart rate 2022-05-13 16:50:00 84 /min Unive [facility] Body temperature 2022-05-13 16:50:00 37.28 Luz Marina [facility] Respiratory rate 2022-05-13 16:50:00 18 /min [facility] Body height 2022-05-13 16:50:00 162.6 cm [facility] Body weight 2022-05-13 16:50:00 63.248 kg [facility] BMI 2022-05-13 16:50:00 23.93 kg/m2 [facility] Oxygen saturation in Arterial blood by Pulse oximetry 2022-05-13 16:50:00 97 /min [facility] Systolic blood pressure 2021-07-31 20:00:00 122 mm[Hg] [facility] Diastolic blood pressure 2021-07-31 20:00:00 76 mm[Hg] [facility] Heart rate 2021-07-31 20:00:00 61 /min [facility] Respiratory rate 2021-07-31 20:00:00 21 /min [facility] Oxygen saturation in Arterial blood by Pulse oximetry 2021-07-31 20:00:00 98 /min [facility] Body temperature 2021-07-31 17:33:00 36.22 Luz Marina [facility] Body weight 2021-07-31 17:33:00 62.596 kg [facility] BMI 2021-07-31 17:33:00 20.38 kg/m2 [facility] Systolic blood pressure 2021-03-11 17:50:00 130 mm[Hg] [facility] Diastolic blood pressure 2021-03-11 17:50:00 82 mm[Hg] [facility] Heart rate 2021-03-11 17:50:00 81 /[facility] 2021-03-11 17:50:00 36.56 Luz Marina [facility] Respiratory rate 2021-03-11 17:50:00 17 /min [facility] Body height 2021-03-11 17:50:00 175.3 cm [facility] Body weight 2021-03-11 17:50:00 62.143 kg [facility] BMI 2021-03-11 17:50:00 20.23 kg/m2 [facility] Oxygen saturation in Arterial blood by Pulse oximetry 2021-03-11 17:50:00 97 /min [facility] Body Temperature 2024-03-29 17:40:00 98.30 degrees Lukas F Sergio Heart Rate 2024-03-29 17:40:00 59.00 /min Jojo en F Sergio Respiratory Rate 2024-03-29 17:40:00 16.00 /min Lukas F Sergio BP Systolic 2024-03-29 17:40:00 138 mm[Hg] Step hen F Sergio BP Diastolic 2024-03-29 17:40:00 84 mm[Hg] Lambert phen F Sergio Weight Measured 2024-03-29 17:40:00 159.80 pounds Lukas F Sergio Height Measured 2024-03-29 17:40:00 64.00 inches Lukas F Sergio BP Systolic 2023-04-01 11:05:00 113 mm[Hg] Step hen F Sergio BP Diastolic 2023-04-01 11:05:00 71 mm[Hg] Lambert phen F Sergio Weight Measured 2023-04-01 11:05:00 140.80 pounds Lukas F Sergio Height Measured 2023-04-01 11:05:00 64.00 inches Lukas F Sergio Body Temperature 2023-04-01 11:05:00 Lukas F Sergio Heart Rate 2023-04-01 11:05:00 71.00 /min Jojo en F Sergio Respiratory Rate 2023-04-01 11:05:00 Lukas F Sergio BP Systolic 2023-03-27 08:51:00 118 mm[Hg] Step hen F Sergio BP Diastolic 2023-03-27 08:51:00 70 mm[Hg] Lambert phen F Sergio Weight Measured 2023-03-27 08:51:00 136.40 pounds [facility] [place] Height Measured 2023-03-27 08:51:00 64.00 inches [facility] [place] Body Temperature 2023-03-27 08:51:00 98.60 degrees [place] Heart Rate 2023-03-27 08:51:00 94.00 /min Jojo en F Sergio Respiratory Rate 2023-03-27 08:51:00 18.00 /min Lukas [place] BP Systolic 2023-03-02 16:02:00 137 mm[Hg] Step hen [place] BP Diastolic 2023-03-02 16:02:00 92 mm[Hg] Lambert phen [place] Weight Measured 2023-03-02 16:02:00 136.60 pounds [facility] [place] Height Measured 2023-03-02 16:02:00 64.00 inches [facility] Body Temperature 2023-03-02 16:02:00 98.20 degrees [place] Heart Rate 2023-03-02 16:02:00 80.00 /min Jojo en [place] Respiratory Rate 2023-03-02 16:02:00 19.00 /min [facility] Procedures Procedure Date / Time Performed Performing Clinician Source POCT MOLECULAR STREP 2024-04-13 21:02:00 Unknown, Attjono rand [facility] URINALYSIS 2023 19:54:00 Regis Quintanilla [facility] POCT TEST 2023 19:54:00 Regis Willams [facility] COMP. METABOLIC PANEL (37536) 2023 18:43:00 Regis Quintanilla [facility] CBC WITH DIFF 2023 18:43:00 Regis Quintanilla [facility] REFERRAL- REQUEST/RESPONSE 2023-03-31 06:01:00 Doctor Unassigned, Gilbert [facility] MR BRAIN WO CONTRAST WITH NEUROQUANT 2023-01-25 23:43:25 Constantino Zaldivar [facility] CREATINE KINASE 2023-01-25 20:53:00 Constantino Zaldivar [facility] TROPONIN I 2023-01-25 20:53:00 Constantino Zaldivar [facility] TROPONIN I 2023-01-25 15:06:00 Andrea Bass [facility] CT HEAD WO CONTRAST 2023-01-25 13:46:13 Andrea Bass [facility] HB ECG ROUTINE & RHYTHM STRIP 2023-01-25 13:21:54 Andrea Bass [facility] POCT TEST 2023-01-25 13:19:00 Andrea Bass [facility] N-TERMINAL PRO-BNP 2023-01-25 13:17:00 Andrea Bass [facility] TROPONIN I 2023-01-25 13:17:00 Andrea Bass [facility] COMP. METABOLIC PANEL (00583) 2023-01-25 13:17:00 Andrea Bass [facility] URINE DRUG (IMMUNOASSAY) - COMPREHENSIVE DRUG SCREEN 2023-01-25 13:17:00 Andrea Bass [facility] CBC WITH DIFF 2023-01-25 13:17:00 Andrea Bass [facility] URINALYSIS 2023-01-25 13:17:00 Andrea Bass [facility] CONSENT/REFUSAL FOR DIAGNOSIS AND TREATMENT 2023-01-25 12:38:58 Doctor Unassigned, Gilbert [facility] HCV ANTIBODY 2022-09-03 19:21:00 Katiana Phillips [facility] PNEUMOCOCCAL 20 CONJUGATE (PREVNAR 20) VACCINE 2022-09-03 18:47:36 Katiana Phillips [facility] ASSIGNMENT OF BENEFITS 2022-09-03 17:49:27 Docto r Unassigned, Gilbert [facility] POCT MOLECULAR FLU 2022-05-13 16:58:00 Unknown, Attend ing [facility] CONSENT/REFUSAL FOR DIAGNOSIS AND TREATMENT 2022-05-13 16:41:02 Doctor Unassigned, Gilbert [facility] XR CHEST 1 VW 2021-07-31 18:24:19 Shanna Santos [facility] LIPASE 2021-07-31 17:51:00 Shanna Santos [facility] TROPONIN I 2021-07-31 17:51:00 Viji Santosanne [facility] COMP. METABOLIC PANEL ([id number]) 2021-07-31 17:51:00 Shanna Santos [facility] CBC WITH DIFF 2021-07-31 17:51:00 Shanna Santos [facility] URINALYSIS 2021-07-31 17:51:00 [facility] N-TERMINAL PRO-BNP 2021-07-31 17:51:00 Eileen Santos [facility] POCT TEST 2021-07-31 17:45:00 Donna Santos [facility] NOTICE OF PRIVACY PRACTICES 2021-07-31 17:21:40 Doctor Unassigned, Gilbert [facility] CONSENT/REFUSAL FOR DIAGNOSIS AND TREATMENT 2021-07-31 17:21:28 Doctor Unassigned, Gilbert [facility] ASSIGNMENT OF BENEFITS 2021-04-04 22:07:57 Docto r Unassigned, Gilbert [facility] POCT MOLECULAR FLU 2021-03-11 18:02:00 [facility] FIN[facility] RESPONSIBILITY - ALL FORMS Doctor Unassigned, Gilbert [facility] Encounters Start Date/Time End Date/Time Encounter Type Admission Type Attending Clinicians Care Facility Care Department Encounter ID Source 2025-01-09 10:00:00 2025-01-09 10:00:00 Outpatient R [facility] [id number] [facility] 2024-12-20 16:00:00 2024-12-20 16:00:51 Urgent Care R Cate Rodriguez Bernard A [facility] 1.2.840.114 350.1.13.10 4.2.7.2.686 [id number] [facility] 2024-11-19 00:00:00 2024-11-21 08:08:32 Refill Soraida Arndt [facility] 1.2.840.114 350.1.13.10 4.2.7.2.686 [id number] [facility] 2024-10-26 12:00:00 2024-10-26 12:20:00 Urgent Care R Soraida Arndt Unknown, Attending [facility] 1.2.840.114 350.1.13.10 4.2.7.2.686 [id number] [facility] 2024-04-13 15:20:00 2024-04-13 15:20:00 Urgent Care Yoselin Noel Vandana, Attending [facility] 1.2.840.114 350.1.13.10 4.2.7.2.686 [id number] [facility] 2024-04-13 15:20:00 2024-04-13 15:18:55 Outpatient R SADIE YOSELIN [facility] [id number] [facility] 2024-03-29 17:44:21 2024-03-29 17:44:21 Outpatient SFA [facility] [id number] Lukas Carr Sergio 2024-03-29 00:00:00 2024-03-29 00:00:00 Outpatient Visit [facility] [id number] Lukas Bruno Sergio 2024-03-02 11:20:00 2024-03-02 11:20:00 Outpatient KATIANA MARS [facility] [id number] [facility] 2024-02-24 15:40:00 2024-02-24 15:40:00 Outpatient KATIANA MARS [facility] [id number] [facility] 2023-12-04 00:00:00 2024-01-09 18:23:35 Patient Secure Msg Doctor Unassigned, Gilbert Doctor Unassigned, Gilbert [facility] ([facility]) 1.2.840.114 350.1.13.10 4.2.7.2.686 [id number] [facility] 2023-12-04 00:00:00 2024-01-09 18:23:04 Patient Secure Msg Doctor Unassigned, Gilbert Doctor Unassigned, Gilbert [facility] ([facility]) 1.2.840.114 350.1.13.10 4.2.7.2.686 [id number] [facility] 2023-12-23 00:00:00 2023-12-27 17:51:33 Telephone Katiana Phillips [facility] 1.2.840.114 350.1.13.10 4.2.7.2.686 [id number] [facility] 2023-12-15 08:30:00 2023-12-15 08:45:00 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 1.2.840.114 350.1.13.10 4.2.7.2.686 [id number] [facility] 2023-12-15 08:30:00 2023-12-15 08:30:00 Outpatient R KATIANA PHILLIPS [facility] [id number] [facility] 2023-11-27 00:00:00 2023-11-27 10:58:[address] [facility] 1.2.840.114 350.1.13.10 4.2.7.2.686 [id number] [facility] 2023-11-25 00:00:00 2023-11-26 12:58:30 Patient Outreach Ashley Rodriges Jocelyn [facility] 1.84.114 350.1.13.10 4.2.7.2.686 [id number] [facility] 2023-11-25 11:00:00 2023-11-25 12:26:57 Outpatient R KATIANA PHILLIPS [facility] [id number] [facility] 2023-11-25 11:00:00 2023-11-25 12:26:57 Office Visit Katiana Phillips [facility] 1.84.114 350.1.13.10 4.2.7.2.686 [id number] [facility] 2023 13:05:00 2023 18:09:00 Emergency X REGIS QUINTANILLA ERIN [facility] ERT [id number] [facility] 2023 13:05:00 2023 18:09:00 Emergency Regis Quintanilla [facility] 1.84.114 350.1.13.10 4.2.7.2.686 [id number] [facility] 2023-06-05 10:00:00 2023-06-05 10:00:00 Outpatient R RADIOLOGY [facility] [id number] [facility] 2023-04-07 08:00:00 2023-04-07 08:00:00 Outpatient R DELL BAIRD [facility] [id number] [facility] 2023-04-02 00:00:00 2023-04-02 00:00:00 Patient Secure Msg Doctor Unassigned, Gilbert [facility] 1.84.114 350.1.13.10 4.2.7.2.686 [id number] [facility] 2023-04-01 10:57:52 2023-04-01 10:57:52 Outpatient [facility] [id number] [place] 2023-03-31 00:00:00 2023-03-31 00:00:00 Orders Only Doctor Unassigned, Gilbert [facility] 1..840.114 350.1.13.10 4.2.7.2.686 [id number] [facility] 2023-03-27 08:43:31 2023-03-27 08:43:31 Outpatient [facility] [id number] [place] 2023-02-17 13:30:00 2023-02-17 13:30:00 Outpatient R [facility] [id number] [facility] 2023-02-09 10:00:00 2023-02-09 10:00:00 Outpatient R RITA SNOW AISHA [facility] [id number] [facility] 2023-01-29 00:00:00 2023-01-29 00:00:00 Telephone [facility] 1..840.114 350.1.13.10 4.2.7.2.686 [id number] [facility] 2023-01-25 07:51:00 2023-01-26 09:30:00 Outpatient CONSTANTINO KENNEDY [facility] [id number] [facility] 2023-01-25 07:51:00 2023-01-26 09:30:00 Emergency Andrea Bass [facility] 1..840.114 350.1.13.10 4.2.7.2.686 [id number] [facility] 2022-12-04 13:20:00 2022-12-04 13:20:00 Outpatient R KATIANA PHILLIPS [facility] [id number] [facility] 2022-11-14 08:30:00 2022-11-14 08:30:00 Outpatient R [facility] [id number] [facility] 2022-09-03 14:25:09 2022-09-03 23:59:00 Hospital Encounter Katiana Phillips [facility] 1.2840.114 350.1.13.10 4.2.7.2.686 [id number] [facility] 2022-09-03 14:15:00 2022-09-03 14:42:03 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 BUILDING 1.20.114 350.1.13.10 4.2.7.2.686 [id number] [facility] 2022-09-03 00:00:00 2022-09-03 00:00:00 Orders Only Doctor Unassigned, Gilbert [facility] 1.20.114 350.1.13.10 4.2.7.2.686 [id number] [facility] 2022-09-03 00:00:00 2022-09-03 00:00:00 Letter (Out) [facility] 1.20.114 350.1.13.10 4.2.7.2.686 [id number] [facility] 2022-09-03 00:00:00 2022-09-03 00:00:00 Patient Secure Msg Doctor Unassigned, Gilbert [facility] 1.2840.114 350.1.13.10 4.2.7.2.686 [id number] [facility] 2022-05-13 10:20:00 2022-05-13 11:09:10 Outpatient R SORAIDA ARNDT [facility] [id number] [facility] 2022-05-13 10:20:00 2022-05-13 11:09:10 Urgent Care Soraida Arndt Unknown, Attending [facility] 1.2840.114 350.1.13.10 4.2.7.2.686 [id number] [facility] 2022-05-13 00:00:00 2022-05-13 00:00:00 Orders Only Doctor Unassigned, Gilbert [facility] 1.284.114 350.1.13.10 4.2.7.2.686 [id number] [facility] 2022-05-13 00:00:00 2022-05-13 00:00:00 Letter (Out) Soraida Arndt [facility] 1.84.114 350.1.13.10 4.2.7.2.686 [id number] [facility] 2021-10-16 00:00:00 2021-10-16 00:00:00 Telephone Debby Jain [facility] 1.284.114 350.1.13.10 4.2.7.2.686 [id number] [facility] 2021-10-15 19:45:00 2021-10-15 20:00:00 Laboratory Only Only, Ang Db Test Sd Arredonod [facility] 1.84114 350.1.13.10 4.2.7.2.686 [id number] [facility] 2021-10-15 19:45:00 2021-10-15 19:38:02 Outpatient R SD ARREDONDO [facility] [facility] [id number] [facility] 2021-10-15 00:00:00 2021-10-15 00:00:00 Letter (Out) Only, Ang Db Test [facility] 1.84114 350.1.13.10 4.2.7.2.686 [id number] [facility] 2021-07-31 12:38:00 2021-07-31 15:23:00 Emergency X VIJI SANTOSANNE [facility] ERT [id number] [facility] 2021-07-31 12:38:00 2021-07-31 15:23:00 Emergency Shanna Santos [facility] 1.114 350.1.13.10 4.2.7.2.686 [id number] [facility] 2021-07-31 00:00:00 2021-07-31 00:00:00 Orders Only Doctor Unassigned, Gilbert [facility] 1.114 350.1.13.10 4.2.7.2.686 [id number] [facility] 2021-04-04 16:00:00 2021-04-04 17:04:28 Outpatient R RISHABH KELLEY [facility] [id number] [facility] 2021-04-04 16:00:00 2021-04-04 16:15:00 Laboratory Only Only, Ang Db Test Marcello Rishabh [facility] 1.84114 350.1.13.10 4.2.7.2.686 [id number] [facility] 2021-04-04 00:00:00 2021-04-04 00:00:00 Orders Only Doctor Unassigned, Gilbert [facility] 1.2.840.114 350.1.13.10 4.2.7.2.686 [id number] [facility] 2021-04-04 00:00:00 2021-04-04 00:00:00 Letter (Out) Provider, Cristian Saldaña Ur[facility] 1.2.840.114 350.1.13.10 4.2.7.2.686 [id number] [facility] 2021-04-04 00:00:00 2021-04-04 00:00:00 Letter (Out) Provider, Cristian Saldaña [facility] Care [facility] 1.2.840.114 350.1.13.10 4.2.7.2.686 [id number] [facility] 2021-03-12 00:00:00 2021-03-12 00:00:00 Letter (Out) Liz Molina [facility] 1.2.840.114 350.1.13.10 4.2.7.2.686 [id number] [facility] 2021-03-11 12:00:00 2021-03-11 12:18:19 Outpatient XOCHLIT JHAVERI [facility] [id number] [facility] 2021-03-11 11:42:31 2021-03-11 12:02:31 Urgent Care [facility] 1.2.840.114 350.1.13.10 4.2.7.2.686 [id number] [facility] 2021-03-11 12:00:00 2021-03-11 12:00:00 Outpatient XOCHILT JHAVERI [facility] [id number] [facility] 2021-01-07 14:59:38 2021-01-07 15:39:45 [facility] 1.2.840.114 350.1.13.10 4.2.7.2.686 [id number] [facility] 2021-01-07 15:00:00 2021-01-07 15:00:00 [facility] [id number] [facility] 2021-01-07 00:00:00 2021-01-07 00:00:00 Letter (Out) Provider, Cristian Saldaña [facility] 1.2840.114 350.1.13.10 4.2.7.2.686 [id number] [facility] 2020-06-19 00:00:00 2020-06-19 00:00:00 Patient Outreach Bill Gonzalez [facility] 1.2840.114 350.1.13.10 4.2.7.2.686 [id number] [facility] 2020-04-13 16:06:30 2020-04-13 16:21:30 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[employer] 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[employer] Operator Visit 2, Adc Lab Jacqueline Kataina [facility] Building 1.2840.114 350.1.13.10 4.2.7.2.686 [id number] [facility] 2020-04-13 14:36:28 2020-04-13 16:04:23 Office Visit Katiana Phillips [facility] 1.2840.114 350.1.13.10 4.2.7.2.686 [id number] [facility] 2020-04-13 14:40:00 2020-04-13 14:40:00 Outpatient KATIANA MARS [facility] [id number] [facility] 2020-04-12 16:00:00 2020-04-12 16:00:00 Outpatient R KATIANA PHILLIPS [facility] [id number] [facility] 2020-03-09 16:50:15 2020-03-09 17:10:15 Laboratory Only Lab, [facility] 1.840.114 350.1.13.10 4.2.7.2.686 [id number] [facility] 2020-03-09 17:00:00 2020-03-09 17:00:00 [facility] [id number] [facility] 2019-12-26 14:58:01 2019-12-26 15:18:01 Laboratory Only Lab, [facility] .840.114 350.1.13.10 4.2.7.2.686 [id number] [facility] 2019-12-26 15:00:00 2019-12-26 15:00:00 Outpatient R AMELIE QIU [facility] [id number] [facility] 2019-12-26 13:00:00 2019-12-26 13:00:00 Outpatient R AMELIE QIU [facility] [id number] [facility] 2019-10-25 07:20:00 2019-10-25 07:20:00 Outpatient R JACQUELINE KATIANA [facility] [id number] [facility] 2019-10-10 00:00:00 2019-10-10 00:00:00 Telephone Amelie Qiu [facility] 1..114 350.1.13.10 4.2.7.2.686 [id number] [facility] 2019-10-09 00:00:00 2019-10-09 00:00:00 Telephone Teetee Koch [facility] 1.114 350.1.13.10 4.2.7.2.686 [id number] [facility] 2019-10-07 13:22:49 2019-10-07 13:42:49 Laboratory Only Lab, Adc Fam Pob I Tamarakasi [facility] Office Building One .114 350.1.13.10 4.2.7.2.686 [id number] [facility] 2019-10-07 13:20:00 2019-10-07 13:20:00 [facility] [id number] 2019-07-29 09:15:00 2019-07-29 09:15:00 Outpatient DANIEL JO [facility] [id number] [facility] 2019-07-29 08:20:00 2019-07-29 08:20:00 Outpatient KTAIANA MARS [facility] [id number] [facility] 2019-07-28 00:00:00 2019-07-28 00:00:00 [facility] 1.114 350.1.13.10 4.2.7.2.686 [id number] [facility] 2019-07-26 15:38:04 2019-07-26 15:58:04 Urgent Care Pob1, Acute Care Clinic Jacqueline [facility] Office Building One .114 350.1.13.10 4.2.7.2.686 [id number] [facility] 2019-07-26 07:40:00 2019-07-26 07:40:00 Outpatient KATIANA MARS [facility] [id number] [facility] 2019-07-26 07:07:26 2019-07-26 07:27:26 Telemedici ne Visit Katiana Phillips [facility] 1.2.840.114 350.1.13.10 4.2.7.2.686 [id number] [facility] 2019-07-26 00:00:00 2019-07-26 00:00:00 Refill Katiana Phillips [facility] Building 1.2.840.114 350.1.13.10 4.2.7.2.686 [id number] [facility] 2019-07-12 07:46:24 2019-07-12 08:06:24 Telemedici ne Visit Katiana Phillips [facility] Building 1.2.840.114 350.1.13.10 4.2.7.2.686 [id number] [facility] 2019-07-12 08:00:00 2019-07-12 08:00:00 Outpatient R KATIANA PHILLIPS [facility] [id number] [facility] 2019-06-27 07:20:00 2019-06-27 07:20:00 Outpatient R GERRY GREEN [facility] [id number] [facility] 2019-06-15 00:00:00 2019-06-15 00:00:00 Refill Katiana Phillips [facility] Building 1.2.840.114 350.1.13.10 4.2.7.2.686 [id number] [facility] 2019-06-14 08:02:55 2019-06-14 09:13:39 Office Visit Katiana Phillips [facility] Building 1.2.840.114 350.1.13.10 4.2.7.2.686 [id number] [facility] 2019-06-14 08:00:00 2019-06-14 08:00:00 Outpatient R KATIANA PHILLIPS [facility] [id number] [facility] 2019-06-14 00:00:00 2019-06-14 00:00:00 Orders Only Doctor Unassigned, Gilbert [facility] 1.2.840.114 350.1.13.10 4.2.7.2.686 [id number] [facility] 2019-06-14 00:00:00 2019-06-14 00:00:00 Letter (Out) Katiana Phillips [facility] 1.2.840.114 350.1.13.10 4.2.7.2.686 [id number] [facility] 2018-07-28 09:00:00 2018-07-28 09:20:54 Outpatient R ANNI PHAN [facility] [id number] [facility] 2018-07-08 07:06:00 2018-07-11 15:22:00 Inpatient P COSTANTINE, ROMÁN SCHWARTZ [facility] JEANINE [id number] [facility] Orders Only Doctor Unassigned, Gilbert [facility] 1.2.840.114 350.1.13.10 4.2.7.2.686 [id number] [facility] Results Test Description Test Time Test Comments Results Result Co [facility] Source [id number] 19:54:00* Test Item Value Reference Range Interpretation Comme nts POCT PREG (test code = 1605) Negative On board controls acceptable with C Line (test code = 3574) Yes POCT PREG LOT # (test code = 3575) HCG [id number] POCT PREG TEST DATE (test code = 3576) 08/06/2024 Lab Interpretation (test cod e = 46702-0) Normal [facility] RIS[facility] WITH GENOTYPE, [id number] 00:00:00* Test Item Value Reference Range Interpretation Comme nts HPV HIGH RISK INTERP (test c ode = 41757) NEGATIVE HPV 16 (test code = 62011) NEGATIVE HPV 18 (test code = 19918) NEGATIVE HPV, HR, OTHER GENOTYPES (te st code = 67622) NEGATIVE [facility]/2 4[facility] GEN, RFLX [id number] 00:00:00* Test Item Value Reference Range Interpretation Comme nts HIV 1/2 4TH GEN, RFLX CONF ( test code = 3514) NON-REACTIVE Lukas Carr AustinRPR REFLEX TO T. PALLIDUM - [id number] 00:00:00* Test Item Value Reference Range Interpretation Comme nts RPR (test code = 89695) NON-REACTIVE RPR TITER (test code = 3500) NOT INDIC. TITER [facility] HillHEPATITIS PROFILE (A,B,C)2023-04-02 00:00:00* Test Item Value Reference Range Interpretation Comme nts HEPATITIS A TOTAL AB (test c ode = 2725) REACTIVE HEPATITIS B SURF AG (test co de = 2739) NON-REACTIVE HEP B CORE TOTAL AB (test co de = 2729) NON-REACTIVE HEPATITIS B SURFACE AB (test code = 2737) NON-REACTIVE HEPATITIS C ANTIBODY (test c ode = 4675) NON-REACTIVE INTERPRETATION HEPATITIS A: (test code = 2552) (NOTE) INTERPRETATION HEPATITIS B: (test code = 12595) (NOTE) INTERPRETATION HEPATITIS C: (test code = 63928) (NOTE) [facility] HillHEPATITIS A IgM [REFLEX]2023-04-02 00:00:00* Test Item Value Reference Range Interpretation Comme nts HEPATITIS A IgM (test code = 2728) NON-REACTIVE Luk[facility] HillGC AND CHLAMYDIA AMPLIFIED, [id number] 00:00:00* Test Item Value Reference Range Interpretation Comme nts CHLAMYDIA, NAAT, THINPREP (t est code = 92578) NEGATIVE GONORRHEA, NAAT, THINPREP (t est code = 88365) NEGATIVE Luk[facility] HillPAP TEST, THINPREP, [id number] 00:00:00* Test Item Value Reference Range Interpretation Comme nts SOURCE: (test code = 8001) Cervical/Endocervical SLIDES: (test code = 8011) 1 LMP: (test code = 8021) SPECIMEN ADEQUACY: (test code = 34283) (NOTE) INTERPRETATION: (test code = 74117) NILM/NO EPITH. ABNORMALITY;SEE BELOW HOOK UP: (test code = 8101) [place]IAC LOCATION: (test code = 18122) (NOTE) CPT: (test code = 8140) (NOTE) Lukas HillLORENA [id number] 16:09:02* Test Item Value Reference Range Interpretation Comme nts TROPONIN I (test code = 6492340874) 0.129 ng/mL <=0.034 H MARTHA (test code = MARTHA) Reference (Normal) Range (defined by the 99th percentile reference [...] to patient's use of biotin. Lab Interpretation (test code = 31449-1) Abnormal [facility]. METABOLIC PANEL (39452)2023-01-25 14:30:19* Test Item Value Reference Range Interpretation Comme nts NA (test code = 4378869624) 138 mmol/L 135-145 K (test code = 7537856553) 4.1 mmol/L 3.5-5.0 CL (test code = 7854730574) 106 mmol/L 98-108 CO2 TOTAL (test code = 9799865987) 22 mmol/L 23-31 L AGAP (test code = 5674700474) 10 2-16 BUN (test code = 9158723280) 13 mg/dL 7-23 GLUCOSE (test code = 0177692045) 101 mg/dL 70-110 CREATININE (test code = 7588320360) 0.64 mg/dL 0.50-1.04 TOTAL BILI (test code = 2003839103) 0.5 mg/dL 0.1-1.1 CALCIUM (test code = 3332853373) 8.9 mg/dL 8.6-10.6 T PROTEIN (test code = 7569712213) 7.1 g/dL 6.3-8.2 ALBUMIN (test code = 6632880449) 4.1 g/dL 3.5-5.0 ALK PHOS (test code = 7631986434) 61 U/L 34-122 ALTv (test code = 1742-6) 18 U/L 5-35 AST(SGOT) (test code = 4562321476) 26 U/L 13-40 eGFR (test code = 1974024530) 104.4 mL/min/1.73m2 MARTHA (test code = MARTHA) Association of [...] or abnormalities in imaging tests). Lab Interpretation (test code = 45636-9) [id number] 14:24:19* Test Item Value Reference Range Interpretation Comme nts TROPONIN I (test code = 6325754971) 0.087 ng/mL <=0.034 H MARTHA (test code = MARTHA) Reference (Normal) Range (defined by the 99th percentile reference [...] to patient's use of biotin. Lab Interpretation (test code = 32518-8) Abnormal [facility] [id number] 14:21:58* Test Item Value Reference Range Interpretation Comme nts NT-proBNP (test code = 49208-8) 149 pg/mL <=125 MARTHA (test code = MARTHA) Result Indeterminate-Consid er causes of NT-proBNP elevation other than Heart failure such as acute coronary syndrome, pulmonary embolism, pulmonary hypertension, sepsis, stroke, and renal dysfunction. Lab Interpretation (test code = 30469-7) Abnormal [facility] HendersonCBC WITH [id number] 14:04:59* Test Item Value Reference Range Interpretation Comme nts WBC (test code = 6690-2) 7.08 See_Comment [Automated Quiblya Mapp] The system which generated this result transmitted reference range: 4.30 - 11.10 10*3/?L. The reference range was not used to interpret this result as normal/abnormal. RBC (test code = 789-8) 4.30 See_Comment [Automated Quiblya Mapp] The system which generated this result transmitted reference range: 3.93 - 5.25 10*6/?L. The reference range was not used to interpret this result as normal/abnormal. HGB (test code = 718-7) 14.0 g/dL 11.6-15.0 HCT (test code = 4544-3) 40.4 % 35.7-45.2 MCV (test code = 787-2) 94.0 fL 80.6-95.5 MCH (test code = 785-6) 32.6 pg 25.9-32.8 MCHC (test code = 786-4) 34.7 g/dL 31.6-35.1 RDW-SD (test code = 00233-5) 43.5 fL 39.0-49.9 RDW-CV (test code = 788-0) 12.6 % 12.0-15.5 PLT (test code = 777-3) 302 See_Comment [Automated messa ge] The system which generated this result transmitted reference range: 166 - 358 10*3/?L. The reference range was not used to interpret this result as normal/abnormal. MPV (test code = 41070-7) 9.7 fL 9.5-12.9 NRBC/100 WBC (test code = 3936765693) 0.0 See_Comment [Automated Akredo ssage] The system which generated this result transmitted reference range: 0.0 - 10.0 /100 WBCs. The reference range was not used to interpret this result as normal/abnormal. NRBC x10^3 (test code = 1565248680) See_Comment [Automated Quiblya ge] The system which generated this result transmitted reference range: 10*3/?L. The reference range was not used to interpret this result as normal/abnormal. GRAN MAT (NEUT) % (test code = 770-8) 85.1 % IMM GRAN % (test code = 7330996378) 0.30 % LYMPH % (test code = 736-9) 10.0 % MONO % (test code = 5905-5) 4.1 % EOS % (test code = 713-8) 0.4 % BASO % (test code = 706-2) 0.1 % GRAN MAT x10^3(ANC) (test code = 5856427168) 6.02 10*3/uL 1.88-7.09 IMM GRAN x10^3 (test code = 7173586867) 0.00-0.06 LYMPH x10^3 (test code = 731-0) 0.71 10*3/uL 1.32-3.29 L MONO x10^3 (test code = 742-7) 0.29 10*3/uL 0.33-0.92 L EOS x10^3 (test code = 711-2) 0.03 10*3/uL 0.03-0.39 BASO x10^3 (test code = 704-7) 0.01-0.07 Lab Interpretation (test code = 69484-5) Abnormal [facility] [id number] 13:19:00* Test Item Value Reference Range Interpretation Comme nts POCT PREG (test code = 1605) Negative On board controls acceptable with C Line (test code = 3574) Yes POCT PREG LOT # (test code = 3575) [id number] POCT PREG TEST DATE ( test code = 3576) 04/01/2024 Lab Interpretation (test cod e = 98260-4) Normal [facility] [id number] 04:35:43* Test Item Value Reference Range Interpretation Comme nts HCV Ab (test code = 12111-4) Negative HCV Semi-Quantitative (test code = 90943-3) 0.01 [facility] [id number] 04:35:43* Test Item Value Reference Range Interpretation Comme nts HCV Ab (test code = 64301-5) Negative HCV Semi-Quantitative (test code = 25548-5) 0.01 [facility] MOLECULAR [id number] 17:10:19* Test Item Value Reference Range Interpretation Comme nts POCT Molecular FluA (test co de = 43309-4) Negative Negative POCT Molecular FluB (test co de = 43209-3) Negative Negative Lab Interpretation (test cod e = 70757-0) Normal [facility] Henderson[facility] [id number] 18:55:11* Test Item Value Reference Range Interpretation Comments TROPONIN I (test code = 1674262381) 0.000 ng/mL See_Comment [Automated message] The system which generated this result transmitted reference range: <=0.034. The reference range was not used to interpret this result as normal/abnormal. MARTHA (test code = MARTHA) Reference (Normal) Range (defined by the 99th percentile reference [...] to patient's use of biotin. Lab Interpretation (test code = 30409-8) Normal [facility]MINAL [id number] 18:51:49* Test Item Value Reference Range Interpretation Comme nts NT-proBNP (test code = 3045013169) 47 pg/mL See_Comment [Automated message] The system which generated this result transmitted reference range: <=125. The reference range was not used to interpret this result as normal/abnormal. MARTHA (test code = MARTHA) Biotin has been reported to cause a negative bias, interpret results relative to patient's use of biotin. Lab Interpretation (test code = 42424-8) Normal [facility] METABOLIC PANEL (20711)2021-07-31 18:25:25* Test Item Value Reference Range Interpretation Comme nts NA (test code = 3323326460) 141 mmol/L 135-145 K (test code = 6815005914) 4.1 mmol/L 3.5-5.0 CL (test code = 3491685304) 106 mmol/L 98-108 CO2 TOTAL (test code = 7425527584) 22 mmol/L 23-31 L AGAP (test code = 1035007627) 2-16 BUN (test code = 5595221570) 10 mg/dL 7-23 GLUCOSE (test code = 4949376751) 113 mg/dL 70-110 H CREATININE (test code = 8008514678) 0.58 mg/dL 0.50-1.04 TOTAL BILI (test code = 2115408369) 0.7 mg/dL 0.1-1.1 CALCIUM (test code = 2556987413) 9.2 mg/dL 8.6-10.6 T PROTEIN (test code = 0876615734) 7.9 g/dL 6.3-8.2 ALBUMIN (test code = 0317846527) 4.9 g/dL 3.5-5.0 ALK PHOS (test code = 9591146193) 82 U/L 34-122 ALTv (test code = 1742-6) 16 U/L 5-35 AST(SGOT) (test code = 2196137126) 23 U/L 13-40 eGFR (test code = 6804188752) mL/min/1.73m2 MARTHA (test code = MARTHA) Association of [...] or abnormalities in imaging tests). Lab Interpretation (test code = 67706-2) [facility]normal [facility] 18:25:25* Test Item Value Reference Range Interpretation Comme nts LIPASE (test code = 9674245926) 36 U/L 0-220 Lab Interpretation (test cod e = 21695-2) Normal [facility] Henderson[facility] WITH [id number] 18:22:48* Test Item Value Reference Range Interpretation Comme nts WBC (test code = 6690-2) See_Comment [Automated messa ge] The system which generated this result transmitted reference range: 4.30 - 11.10 10*3/?L. The reference range was not used to interpret this result as normal/abnormal. RBC (test code = 789-8) See_Comment [Automated messa ge] The system which generated this result transmitted reference range: 3.93 - 5.25 10*6/?L. The reference range was not used to interpret this result as normal/abnormal. HGB (test code = 718-7) 15.2 g/dL 11.6-15.0 H HCT (test code = 4544-3) 43.4 % 35.7-45.2 MCV (test code = 787-2) 94.6 fL 80.6-95.5 MCH (test code = 785-6) 33.1 pg 25.9-32.8 H MCHC (test code = 786-4) 35.0 g/dL 31.6-35.1 RDW-SD (test code = 67466-7) 43.4 fL 39.0-49.9 RDW-CV (test code = 788-0) 12.4 % 12.0-15.5 PLT (test code = 777-3) See_Comment [Automated Quiblya ge] The system which generated this result transmitted reference range: 166 - 358 10*3/?L. The reference range was not used to interpret this result as normal/abnormal. MPV (test code = 67290-1) 9.5 fL 9.5-12.9 NRBC/100 WBC (test code = 3274783219) See_Comment [Automated Akredo ssage] The system which generated this result transmitted reference range: 0.0 - 10.0 /100 WBCs. The reference range was not used to interpret this result as normal/abnormal. NRBC x10^3 (test code = 3235667135) <0.01 See_Comment [Automated messa ge] The system which generated this result transmitted reference range: 10*3/?L. The reference range was not used to interpret this result as normal/abnormal. GRAN MAT (NEUT) % (test code = 770-8) 88.0 % IMM GRAN % (test code = 4880298058) 0.30 % LYMPH % (test code = 736-9) 8.2 % MONO % (test code = 5905-5) 3.2 % EOS % (test code = 713-8) 0.2 % BASO % (test code = 706-2) 0.1 % GRAN MAT x10^3(ANC) (test code = 5111121216) 8.46 10*3/uL 1.88-7.09 H IMM GRAN x10^3 (test code = 6997125920) 0.03 10*3/uL 0.00-0.06 LYMPH x10^3 (test code = 731-0) 0.79 10*3/uL 1.32-3.29 L MONO x10^3 (test code = 742-7) 0.31 10*3/uL 0.33-0.92 L EOS x10^3 (test code = 711-2) <0.03 0.03-0.39 L BASO x10^3 (test code = 704-7) <0.03 0.01-0.07 Lab Interpretation (test code = 80424-2) [facility]normal [facility] [id number] 17:45:00* Test Item Value Reference Range Interpretation Comme nts POCT PREG (test code = 1605) Negative On board controls acceptable with C Line (test code = 3574) Present POCT PREG LOT # (test code = 3575) [id number] POCT PREG TEST DATE ( test code = 3576) 12/27/2022 Lab Interpretation (test cod e = 19078-2) Normal [facility] [id number] 18:14:05* Test Item Value Reference Range Interpretation Comme nts POCT Molecular FluA (test co de = 56968-4) Negative Negative POCT Molecular FluB (test co de = 94737-3) Negative Negative Lab Interpretation (test cod e = 31277-4) Normal [facility] Notes Date/Time Note Provider Source Lukas Warren [facility]2024-09-25 08:47:58 Called patient, verified name and . Patient would like to know lab results and would like to know if she needs to come in sooner or wait till her appointment in January. Will route to provider to review. Tiffany Kennedy MA 12/23/2023 8:53 AM Tiffany Kennedy [place] 323214-[place]-25 08:31:43 Claribel Henley is a 38 year old female calling in requesting to speak with nurse for recent lab results.Please advise Christos EscaleraNathan Ville 323214-09-17 08:30:00 Images from the original note were not included. Venipuncture collection performed by clean technique on the left anticubitus. Total of 1 attempts were made. Slight pressure and a bandage/dressing were applied to the site(s). The patient experienced no complications. The following specimens were processed according to instructions and sent to [facility] laboratories per lab order on 12/15/2023 : LT BLUE SST 3 RED LAV 2 PPT DK GREEN (LiHep) 1 LT GREEN 1 HENLEY DK BLUE (K2) DK BLUE (S) ACD Blood Culture NIPT/NTD Patient has been identified by and name and was provided with cup, antiseptic towelette, and clean catch instructions. 2 urine specimen(s) sent. Unpreserved 1 Urine Culture 1 Aptima tube Other urine [place] [id number] 10:39:35 Images from the original note were not included. Requested Renewals levETIRAcetam (KEPPRA) 500 mg tablet Possible duplicate: Hover to review recent actions on this medication Sig: Take 1 tablet by mouth in the morning and 1 tablet in the evening. Disp: 40 tablet Refills: 0 Start: 11/27/2023 Class: eRX For: History of seizures Last ordered: 4 days ago (2023) by Regis Quintanilla MD Seizure- keppra Wqvate2011/27/2023 10:12 AM Protocol Details Manual Review: Check for seizures or dose change in last 3 months Valid encounter within last 12 months Levetiracetam, Serum in normal range and within 360 days To be filled at: [facility] [address] [place] [address] 11-25-2023 NOV 02-24-2024 [facility]ilt Isaacs [id number] 10:08:55 Claribel Henley is a 38 year old female Calling in requesting refill for levETIRAcetam (KEPPRA) 500 mg tablet. Per pt the ER only filled 2 weeks worth of medication and she is concerned that she will run out. Please contact and advise. [phone] (home) [facility] [address] [place] [id number] [facility]2024-08-26 18:08:31 PT D/C home. GCS15, VS stable, no ataxia noted. Given one prescription and D/C paperwork. Pt ambulatory with friend at time of discharge. Pt educated on seizure, med usage, follow up care, s/s worsening condition. Pt verbalized understanding. Palma Ibrahim RNMetroHealth Main Campus Medical [id number] 15:57:21 UA reviewed and noted Normal lab. No evidence suggestive of endogenous microbial contamination or infection. Maintain good hydration, minimum 64 ounces daily. Return to clinic if painful urination urgency, frequency, malodor to urine or fever start [place] [id number] 15:05:00 Negative screening T [place] [id number] 14:52:28 Normal labs [facility] [id number] 12:51:54 Pt to ED CO "dizziness and weird sensation in head" since this morning. Reports this feeling prior to previous seizures. Takes Keppra. Reports compliance with medications. Last seizure 01/2023. Tita Pro RNMetroHealth Main Campus Medical [id number] 12:45:00 [facility] Emergency Department Note Patient Name: Claribel Henley Date of : 1985 37 year old female Treatment Room: [facility] Primary Care Physician: Katiana Phillips Patient Escorted by: Self [9] Mode of Arrival: Personal means [1] EMS Treatment Prior to ED Arrival: Travel and Exposure Screening: Symptoms Does patient have any of these symptoms?: (not recorded) Exposure Screening Has patient had contact with someone with a communicable disease in the last month?: (not recorded) Diseases exposed to:: (not recorded) Is Patient ?: (not recorded) Exposure Date: (not recorded) Chief Complaint: Chief Complaint Patient presents with Other Seizure aura History of Present Illness: HPI Claribel Henley is a 37 year old female with PMHx of seizures (on keppra 500 mg BID) presenting with aura and reports feeling "as if she were going to have a seizure". Patient reports compliance with seizure medications. Patient reports that her last seizure was 01/2023. Patient reports that she does not currently have a neurologist. Patient was admitted to the hospital 01/2023 following last seizure. Patient denies any current headaches, numbness, tingling, chest pain, SOB, nausea or vomiting. Patient reports seeing "stars" and feeling lightheaded. Past Medical History/Immunizations: Past Medical History: Diagnosis Date Abnormal maternal glucose tolerance, antepartum 04/23/2018 ADHD (attention deficit hyperactivity disorder), combined type 04/13/2020 Anemia of mother in , antepartum 04/23/2018 Anxiety, generalized 04/13/2020 Cardiomyopathy developed post cardiomyopathy 2007 Current mild episode of major depressive disorder, unspecified whether recurrent 04/13/2020 Dysmenorrhea 06/06/2015 History of seizures last one in 2017. never found cause. Allergies: No Known Allergies Past Social History: Tobacco Use Some Days; Cigarettes: Last attempted to quit 12/01/2017 Smokeless Tobacco: Never used smokeless tobacco. Comments: d/c as soon as she found out about Alcohol Use Not Currently; 0.0 standard drinks of alcohol per week; 0 Standard drinks or equivalent. Drug Use No. Sexual Activity Sexually active; Partners: Male; Control/Protection: None. Comments: last sexual intercourse 08/23/2018 Past Surgical History: Past Surgical History: Procedure Laterality Date AUGMENTATION MAMMOPLASTY Bilateral 09/03/2016 TUBAL LIGATION N/A 07/09/2018 Surgeon: Lorin Ontiveros; Location: Labor and Delivery - [place] Review of Systems: Review of Systems Constitutional: Positive for fatigue. Negative for activity change, appetite change and fever. HENT: Negative for congestion, facial swelling and rhinorrhea. Eyes: Negative for photophobia and visual disturbance. Respiratory: Negative for apnea, cough, choking, chest tightness, shortness of breath, wheezing and stridor. Cardiovascular: Negative for chest pain, palpitations and leg swelling. Gastrointestinal: Negative for abdominal distention, abdominal pain, anal bleeding, blood in stool, constipation, diarrhea, nausea and vomiting. Genitourinary: Negative for dysuria. Musculoskeletal: Negative for neck pain. Neurological: Positive for light-headedness. Negative for dizziness, tremors, seizures, syncope, facial asymmetry, speech difficulty, weakness, numbness and headaches. Physical Exam: ED Triage Vitals [11/23/23 1254] Weight 63.5 kg (140 lb) Actual or estimated Estimated by patient/family report Height 1.626 m (5' 4") BP 139/89 Pulse 65 Resp 16 Temp 37.1 ?C (98.8 ?F) Temp source Oral SpO2 96 % Measured on Room air Physical Exam Vitals and nursing note reviewed. Constitutional: General: She is not in acute distress. Appearance: She is well-developed. She is not diaphoretic. HENT: Head: Normocephalic and atraumatic. Eyes: General: No scleral icterus. Right eye: No discharge. Left eye: No discharge. Conjunctiva/sclera: Conjunctivae normal. Cardiovascular: Rate and Rhythm: Normal rate and regular rhythm. Heart sounds: Normal heart sounds. No murmur heard. No friction rub. No gallop. Pulmonary: Effort: Pulmonary effort is normal. No respiratory distress. Breath sounds: Normal breath sounds. No wheezing. Chest: Chest wall: No tenderness. Abdominal: General: There is no distension. Palpations: Abdomen is soft. There is no mass. Tenderness: There is no abdominal tenderness. There is no guarding or rebound. Musculoskeletal: Cervical back: Neck supple. Skin: General: Skin is warm and dry. Neurological: Mental Status: She is alert and oriented to person, place, and time. Cranial Nerves: No cranial nerve deficit. Coordination: Coordination normal. Psychiatric: Behavior: Behavior normal. Radiology: No orders to display Lab Results: Lab Results URINALYSIS - Abnormal Result Value Ref Range APPEARANCE Slightly Cloudy (*) Clear COLOR Yellow Yellow PH 6.0 4.8 - 8.0 SP GRAVITY 1.025 1.003 - 1.030 GLU U QUAL Negative Negative BLOOD Small (*) Negative KETONES Negative Negative PROTEIN Negative Negative UROBILIN 0.2 mg/dL 0-1.0 mg/dL BILIRUBIN Negative Negative NITRITE Negative Negative LEUK LAURY Negative Negative RBC/HPF 1 0 - 3 HPF WBC/HPF 1 0 - 5 HPF BACTERIA Few (*) Negative MUCOUS Slight (*) Negative LPF SQ EPITH 2 (*) <=1 HPF POCT TEST - Normal POCT PREG Negative On board controls acceptable with C Line Yes POCT PREG LOT # [id number] POCT PREG TEST DATE 08/06/2024 CBC WITH DIFF WBC 6.87 4.30 - 11.10 10*3/?L RBC 4.39 3.93 - 5.25 10*6/?L HGB 14.4 11.6 - 15.0 g/dL HCT 41.9 35.7 - 45.2 % MCV 95.4 80.6 - 95.5 fL MCH 32.8 25.9 - 32.8 pg MCHC 34.4 31.6 - 35.1 g/dL RDW-SD 46.0 39.0 - 49.9 fL RDW-CV 13.2 12.0 - 15.5 % PLT 344 166 - 358 10*3/?L MPV 9.5 9.5 - 12.9 fL NRBC/100 WBC 0.0 0.0 - 10.0 /100 WBCs NRBC x103<0.01 10*3/?L GRAN MAT (NEUT) % 65.5 % IMM GRAN % 0.60 % LYMPH % 25.2 % MONO % 7.1 % EOS % 1.5 % BASO % 0.1 % GRAN MAT x103(ANC) 4.50 1.88 - 7.09 10*3/uL IMM GRAN x1030.04 0.00 - 0.06 10*3/uL LYMPH x1031.73 1.32 - 3.29 10*3/uL MONO x1030.49 0.33 - 0.92 10*3/uL EOS x1030.10 0.03 - 0.39 10*3/uL BASO x103<0.03 0.01 - 0.07 10*3/uL COMP. METABOLIC PANEL (23516) NA 136 135 - 145 mmol/L K 3.7 3.5 - 5.0 mmol/L CL 106 98 - 108 mmol/L CO2 TOTAL 23 23 - 31 mmol/L AGAP 7 2 - 16 BUN 11 7 - 23 mg/dL GLUCOSE 98 70 - 110 mg/dL CREATININE 0.69 0.50 - 1.04 mg/dL TOTAL BILI 0.5 0.1 - 1.1 mg/dL CALCIUM 9.2 8.6 - 10.6 mg/dL T PROTEIN 7.4 6.3 - 8.2 g/dL ALBUMIN 4.3 3.5 - 5.0 g/dL ALK PHOS 73 34 - 122 U/L ALTv 19 5 - 35 U/L AST(SGOT) 27 13 - 40 U/L eGFR 114.8 mL/min/1.73m2 KEPPRA (LEVETIRACETAM) EKG: If EKG completed, see Procedure Note. Orders and Treatments: Orders Placed This Encounter Procedures Cbc with Diff Comp. Metabolic Panel (59431) Urinalysis POCT TEST Keppra (Levetiracetam) Orders Placed This Encounter Medications LORazepam (ATIVAN) tablet 0.5 mg First Provider Eval: ED Events Date/Time Event User Comments 11/23/23 1312 Medical Screening Begins REGIS QUINTANILLA MD -- 11/23/23 1312 First Provider Evaluation REGIS QUINTANILLA MD -- ED COURSE Diagnosis/Impression as of 11/23/23 1650 Malaise History of seizures Procedures: Procedures MDM: Medical Decision Making Claribel Henley is a 37 year-old female presenting with symptoms as above. Patient's labs reviewed, findings discussed with patient. Patient now reports feeling better, labs unremarkable. Will refill patient's script for keppra (as almost out) and have patient follow up closely with neurologist and PCP. Patient advised to return to the ER for any worsening symptoms despite treatment. Patient discharged with the following instructions. Please follow up closely with your neurologist and your primary care physician. I have placed a referral. I have sent seizure medications to your pharmacy to hold you over until you see your neurologist. Please do not drive or operate any heavy machinery until you are able to follow up with your neurologist and are cleared by your neurologist. RECOMMEND FOLLOW-UP WITH A PRIMARY CARE PROVIDER OR SPECIALIST IN 2-3 DAYS, ESPECIALLY IF NO IMPROVEMENT IN SYMPTOMS. TO FOLLOW-UP WITHIN THE [facility], MAY TRY THESE OPTIONS (CLINIC APPOINTMENTS AVAILABLE ON [id number] BASIS): 1. SCHEDULE AN APPOINTMENT ONLINE AT WWW[email or web address] 2. OR CALL THE [facility] ACCESS CENTER AT OR 3. OR CALL YOUR [facility] PHYSICIAN'S OFFICE DIRECTLY IF YOU ARE ALREADY AN ESTABLISHED [facility] PATIENT. MAY FOLLOW-UP WITH A PROVIDER OF YOUR CHOICE, SUCH : 1. A PHYSICIAN OF YOUR CHOICE 2. [facility]. A. PHONE: [phone]. B. ONLINE: [email or web address] C. LOCATIONS IN [facility] 3. [facility] A. PHONE: [phone] B. ONLINE: [email or web address] C. LOCATION: [address] [place] [address]; [phone] 4. [facility], SUBSTANCE ABUSE A. 20/10 CRISIS HOTLINE, B. APPOINTMENTS: [phone] C. Online: [email or web address] D. CLINICS LOCATED IN [facility] [place]) 5. [facility] ([place] [facility]) A. GENERAL CONTACT NUMBER: [phone] B. ONLINE: [email or web address] C. CLINICS LOCATED IN [place], [place], [facility], [place], [facility] RETURN TO ER FOR WORSENING OF SYMPTOMS. Problems Addressed: History of seizures: acute illness or injury Malaise: acute illness or injury Amount and/or Complexity of Data Reviewed Labs: ordered. Risk Prescription drug management. Parenteral controlled substances. Flowsheet Documentation: Scoring Tools: No data recorded Disposition/Condition: ED Disposition ED Disposition Disch - Home Condition Stable Comment -- Discharge Medications: Patient's Medications START taking these medications No medications on file CONTINUE taking these medications which have NOT CHANGED BUPROPION 75 MG TABLET Take 1 tablet by mouth in the morning and 1 tablet in the evening. TRAZODONE 50 MG TABLET Take 1 tablet by mouth at bedtime. START taking Modified Medications as Prescribed No medications on file STOP taking these medications No medications on file Follow-up: Electronically signed by: Regis Quintanilla MD 11/23/23 4260 T [facility]
--- NOTE | 2025-01-09 09:35 | EDPHYS ---
Physician Documentation [facility] Name: Claribel Henley Age: 39 yrs Sex: Female : 1985 Arrival Date: 01/09/2025 Time: 09:22 Bed 14 Private MD: ED Physician Clarence Bagley HPI: 01/09 10:21 This 39 yrs old Female presents to ER via Ambulatory with complaints of Wound kb Check - right foot. 12:16 Patient is a 39-year-old female who presents for wound to the right foot that started kb about 2 months ago. States she is taking antibiotics and it normally gets better but then it starts getting worse again. Has an appointment with a specialist field engineer at the end of the month but felt like the wound was spreading so she came in today. Denies fever. Reports the area sometimes drains.. Historical: - Allergies: 09:36 No Known Allergies; hb - PSHx: 09:36 breast augmentation; Ligation of fallopian tube; hb - Immunization history:: Adult Immunizations up to date. - Infectious Disease History:: Denies. - Social history:: Smoking status: . ROS: 09:35 Constitutional: As per HPI kb Exam: 09:35 Constitutional: This is a well developed, well nourished patient who is awake, alert, kb and in no acute distress. Head/Face: Normocephalic, atraumatic. ENT: Moist Mucous membranes Cardiovascular: Regular rate Respiratory: Respirations even and unlabored. No increased work of breathing. Talking in full sentences MS/ Extremity: Pulses equal, no cyanosis. Neurovascular intact. Full, normal range of motion. Neuro: Awake and alert, GCS 15, oriented to person, place, time, and situation. 09:35 Skin: open superficial wound to right foot. Vital Signs: 09:35 BP 150 / 91; Pulse 75; Resp 16; Temp 97.9(TE); Pulse Ox 99% on R/A; Weight 70.31 kg; hb Height 5 ft. 4 in. ; Pain 7/10; 09:35 Body Mass Index 26.61 (70.31 kg, 162.56 cm) hb 09:35 Pain Scale: Adult hb MDM: 09:24 Medical Screening Exam initiated kb 09:36 Data reviewed: vital signs, nurses notes. kb 12:17 Differential diagnosis: Wound infection, cellulitis, abscess, athlete's foot. kb Counseling: I had a detailed discussion with the patient and/or guardian regarding the historical points, exam findings, and any diagnostic results supporting the discharge/admit diagnosis, the need for outpatient follow up, a family practitioner, to return to the emergency department if symptoms worsen or persist or if there are any questions or concerns that arise at home. Administered Medications: 09:57 Drug: Doxycycline PO 100 mg PO once Route: PO; Disposition: 17:47 Co-signature as Attending Physician, Clarence Bagley MD I reviewed the patient's care rn provided by the Advanced Practice Provider and agree with the diagnosis and treatment plan. Disposition Summary: 01/09/25 09:34 Discharge Ordered Notes: Location: Home kb Condition: Stable kb Diagnosis - Foot Laceration/ Open wound of foot kb Followup: kb - With: Emergency Department - When: As needed - Reason: Worsening of condition Followup: kb - With: Private Physician - When: 2 - 3 days - Reason: Recheck today's complaints, Continuance of care, Re-evaluation by your physician Discharge Instructions: - Discharge Summary Sheet kb - Wound Infection, [id number] kb Forms: - Medication Reconciliation Form kb - Antibiotic Education kb - Prescription Opioid Use kb - Patient Portal Instructions kb - Leadership Thank You Letter kb - Work release form hb Prescriptions: - Doxycycline Hyclate 100 mg Oral Tablet - take 1 tablet ORAL route every 12 hours; 20 tablet; Refills: 0, Product kb Selection Permitted Signatures: Clara Willett FNP-C FNP-Ckb Williams, Irene, RN RN Clarence Bagley MD MD rn Baxter, Heather, RN RN
[2025-01-09] MEDS ORDERED: DOXYCYCLINE 100 MG CAP PO ONE (09:39)
--- NOTE | 2025-01-09 10:02 | ER ---
Nurse's Notes [facility] Name: Claribel Henley Age: 39 yrs Sex: Female : 1985 Arrival Date: 01/09/2025 Time: 09:22 Bed 14 Private MD: Diagnosis: Foot Laceration/ Open wound of foot Presentation: 01/09 09:35 Chief complaint: Right foot wound x 2 months. Coronavirus screen: At this time, the hb client does not indicate any symptoms associated with coronavirus-19. Ebola Screen: No symptoms or risks identified at this time. Initial Sepsis Screen: Does the patient meet any 2 criteria? No. Patient's initial sepsis screen is negative. Does the patient have a suspected source of infection? No. Patient's initial sepsis screen is negative. Risk Assessment: Do you want to hurt yourself or someone else? Patient reports no desire to harm self or others. Onset of symptoms was October 2024. 09:35 Method Of Arrival: Ambulatory 09:35 Acuity: JUAN DAVID 4 hb Historical: - Allergies: 09:36 No Known Allergies; hb - PSHx: 09:36 breast augmentation; Ligation of fallopian tube; hb - Immunization history:: Adult Immunizations up to date. - Infectious Disease History:: Denies. - Social history:: Smoking status: . Screenin:[address] [facility] ED Fall Risk Assessment (Adult) History of falling in the last 3 months, iw including since admission No falls in past 3 months (0 pts) Confusion or Disorientation No (0 pts) Intoxicated or Sedated No (0 pts) Impaired Gait No (0 pts) Mobility Assist Device Used No (0 pt) Altered Elimination No (0 pt) Score/Fall Risk Level 0 - 2 = Low Risk Oriented to surroundings, Maintained a safe environment. Abuse screen: Denies threats or abuse. Denies injuries from another. Nutritional screening: No deficits noted. Tuberculosis screening: No symptoms or risk factors identified. Vital Signs: 09:35 BP 150 / 91; Pulse 75; Resp 16; Temp 97.9(TE); Pulse Ox 99% on R/A; Weight 70.31 kg; hb Height 5 ft. 4 in. ; Pain 7/10; 09:35 Body Mass Index 26.61 (70.31 kg, 162.56 cm) hb 09:35 Pain Scale: Adult ED Course: 09:24 Patient arrived in ED. im 09:24 Clara Willett [facility]C [facility] kb 09:24 Clarence Bagley MD is Attending Physician. kb 09:36 Triage completed. hb 09:41 Arm band placed on. hb 09:57 Kelli Esquivel, RN is Primary Nurse. iw Administered Medications: 09:57 Drug: Doxycycline PO 100 mg PO once Route: PO; iw Outcome: 09:34 Discharge ordered by . kb 10:00 Discharged to home ambulatory, iw 10:00 Condition: good 10:00 Discharge instructions given to patient, Instructed on discharge instructions, follow up and referral plans. medication usage, Demonstrated understanding of instructions, follow-up care, medications, Prescriptions given X 1, 10:01 Patient left the ED. iw Signatures: Clara Willett FNP-C FNP-CkKelli Baumann, RN RN iw Hayley Orona RN RN Silvina Ferraro im
[2025-01-09 11:46] VITALS: BP 150/91; TEMP 97.9; O2SAT 99
== END 2025-01-09 10:01 | disposition home or self-care (01) ==
LOC: ER 09:22
DX: S91.301A Unspecified open wound, right foot, initial encounter (principal); L08.9 Local infection of the skin and subcutaneous tissue, unspecified; X58.XXXA Exposure to other specified factors, initial encounter; Z48.00 Encounter for change or removal of nonsurgical wound dressing
CPT/HCPCS: 99283